=== PATIENT | male | born 1955 | race Caucasian/White ===

== ENCOUNTER 2019-07-22 10:54 | Inpatient (IN) | payer OTHER, SELFPAY ==
[2019-07-22] VITALS (13 sets, daily range): BP systolic 142–179; BP diastolic 74–95; PULSE 74–112; RESP 16–19; TEMP 36.6–37.8; O2SAT 94–100; BMI 32.7
--- NOTE | ~2019-07-22 | US_ITS ---
EXAMINATION: US right upper quadrant DATE: 07/23/2019 10:52 INDICATION: Choledocholithiasis. TECHNIQUE: Multiple grayscale and Doppler ultrasound images of the abdomen were obtained. COMPARISON: CT abdomen and pelvis 07/22/2019 FINDINGS: The visualized portions of the head, body, and tail of the pancreas are normal. The liver i s normal without focal lesion. No liver surface nodularity. There is normal flow in main portal vein. The gallbladder is distended and contains gallstones. Gallbladder wall thickening is noted. There wa s no sonographic Daniel sign. The common duct is normal and measures 3 mm. IMPRESSION: 1. Acute cholecystitis. Reviewed, dictated and finalized at location A. TANCE ABUSE SPECIALIST IMPRESSION: 1. Acute cholecystitis.
--- NOTE | ~2019-07-22 | XR_ITS ---
EXAMINATION: XR chest 1V portable EXAM DATE: 07/22/2019 11:34 INDICATION: Epigastric chest pain. Shortness of breath. TECHNIQUE: Portable AP frontal chest x-ray was obtained. There is no prior study for comparison. FINDINGS: The lungs are clear. There are no pleural effusions. Cardiac silhouette is prominent but magnified on this AP technique. There is no pneumothorax suspected. The bones and soft tissues are unremarkable. IMPRESSION: No acute cardiopulmonary findings. Reviewed, dictated and finalized at location A. GEMENT PSYCHOLOGIST
--- NOTE | ~2019-07-22 | NM_ITS ---
EXAMINATION: NM stress w perf spect multi EXAM DATE: 07/23/2019 09:38 INDICATION: Ischemic chest pain. TECHNIQUE: Rest images were obtained following intravenous administration of 10.5 mCi Tc99m tetrofosm in (Myoview). The patient performed an exercise activity. At peak exercise, 33.2 mCi Tc99m tetrofosmi n (Myoview) was administered intravenously, and stress images were obtained. Data was reconstructed i nto short axis and horizontal and vertical long axis SPECT images. Gated SPECT images were also obtai anders. There is no prior study for comparison. FINDINGS: There is no reversible or fixed perfusion abnormality to suggest ischemia or infarction. Th ere is normal left ventricular wall motion. End diastolic volume: 40 mL. End-systolic volume: 7 mL. Left ventricular ejection fraction: 83%. IMPRESSION: 1. Normal myocardial perfusion at rest and during stress. 2. Left ventricular ejection fraction measuring 83%. Reviewed, dictated and finalized at location A. PRODUCT
--- NOTE | ~2019-07-22 | XR_ITS ---
EXAMINATION: XR ERCP DATE: 07/23/2019 17:00 INDICATION: Choledocholithiasis. TECHNIQUE: 9 spot fluoroscopic images of the right upper quadrant were obtained during endoscopic ret rograde cholangiopancreatography (ERCP). Fluoroscopy exposure time was 442. COMPARISON: CT abdomen and pelvis 07/22/2019 FINDINGS: There is an endoscope with tip in the second portion of the duodenum. There is contrast opa cification of the biliary tree, which is normal in caliber. No choledocholithiasis. IMPRESSION: 1. No choledocholithiasis. Please refer to the ERCP procedure note for additional details. Reviewed, dictated and finalized at location A. TRIC CELL TENDER IMPRESSION: 1. No choledocholithiasis. Please refer to the ERCP procedure note for addition al details.
--- NOTE | ~2019-07-22 | CT_ITS ---
EXAMINATION: CT abdomen pelvis w con DATE: 07/22/2019 23:09 INDICATION: Elevated liver enzymes TECHNIQUE: Computed tomography (CT) of the abdomen and pelvis was performed with 100 cc Omnipaque 350 intravenous contrast. The dose-length product was 975.42 mGy-cm. Automated exposure control and iter ative reconstruction technique were employed. COMPARISON: No prior studies for comparison. FINDINGS: There are multiple gallstones. There are multiple small stones in the common bile duct and cystic duct. No significant biliary dilatation. Gallbladder wall is thickened with mild pericholecyst ic fatty infiltration. Lung bases unremarkable. Heart size normal. No significant pleural or pericardial effusion. Status po st partial right colectomy. The liver, spleen, pancreas, adrenal glands and kidneys are unremarkable. No bowel obstruction. Bladder wall is unremarkable. Nonobstructive bowel gas pattern. There is a bone island in the right ilium. No acute osseous abnormality. Mild lumbar spondylosis. IMPRESSION: 1. Cholelithiasis with multiple common duct stones and gallbladder wall thickening. Findings suspicio us for cholecystitis. Correlate clinically. Reviewed, dictated and finalized at location A. ATTENDANT IMPRESSION: 1. Cholelithiasis with multiple common duct stones and gallbladder wall thicken ing. Findings suspicious for cholecystitis. Correlate clinically.
--- NOTE | 2019-07-22 10:59 | ED.CHESTPAIN ---
HPI - Chest Pain General Chief Complaint: Chest Pain Stated Complaint: CP Time Seen by Provider: 07/22/19 10:56 Source: patient and RN notes reviewed Mode of arrival: EMS Limitations: no limitations History of Present Illness HPI narrative: A 63 y/o male presents to the ED via EMS with substernal CP beginning roughly 2 hour ago. He states that he was sitting at his desk while at work then his CP began. He reports associated N/V and SOB. He notes that he was given 3 ASA, 1 Nitro, and 4mg of Zofran in route, which help alleviate his symptoms. He denies any arm pain, neck pain, fevers, chills, diarrhea, or ABD pain. MD complaint: chest pain Onset (ago): hour(s) (2) Onset: during rest Pain location: substernal Pain radiation: none Relieving factors: nitroglycerin (1) and other (3 ASA and 4mg of Zofran) Associated symptoms: nausea, vomiting and dyspnea Treatment prior to arrival: aspirin (3), nitroglycerin (1) and other (4mg Zofran) Related Data Allergies Allergy/AdvReac Type Severity Reaction Status Date / Time No Known Allergies Allergy Verified 07/22/19 11:06 Review of Systems Review of Systems: All systems reviewed & are unremarkable except as noted in HPI and below Constitutional: Constitutional: Denies chills and Denies fever(s) Cardiovascular: Cardiovascular: Reports chest pain (substernal) Respiratory: Respiratory: Reports dyspnea Gastrointestinal: Gastrointestinal: Denies abdominal pain, Denies diarrhea, Reports nausea and Reports vomiting Musculoskeletal: Musculoskeletal: Denies neck pain and Denies other (arm pain) PMFSH Past Medical History Medical History (Updated 07/22/19 @ 13:58 by Son Kirk MD) CVA (cerebral vascular accident) DM (diabetes mellitus) H/O: HTN (hypertension) Lymphoma Medical history unknown Surgical History Surgical History (Updated 07/22/19 @ 11:18 by Celso Gaston) Surgical history unknown Social History Social History (Updated 07/22/19 @ 11:14 by Celso Gaston) Smoking status: Unknown if ever smoked Exam Narrative: Exam Narrative: GENERAL: Well-appearing, well-nourished, and in no acute distress. HEAD: Normocephalic, atraumatic. EYES: PERRLA and EOMI. ENT: Nares clear, no rhinorrhea or epistaxis. Mucous membranes moist. NECK: Supple. CHEST: Clear to auscultation. No respiratory distress. HEART: Regular rate and rhythm. No murmur heard. Normal peripheral pulses. ABDOMEN: Soft,Mild tenderness in the epigastric area , nondistended, normal active bowel sounds. EXTREMITIES: Normal range of motion. No edema. SKIN: Warm, dry, no rash. NEURO: No focal deficits. Alert and oriented x3. PSYCH: Normal mood and affect. Course Course Emergency Course: Inform patient about his lab work, x-ray findings. We will admit him for observation overnight for rule out SC Consultations Consultation #1: Discussed case with Sallie Lemus (CRYPTOLOGICAL TECHNICIAN to cardiology). Agrees to consult. Date: 07/22/19 Time: 13:32 Vital Signs Vital signs: Vital Signs Temperature 97.8 F 07/22/19 10:59 Pulse Rate 80 07/22/19 10:59 Respiratory Rate 18 07/22/19 10:59 Blood Pressure 156/79 H 07/22/19 10:59 Pulse Oximetry 100 07/22/19 10:59 Temperature 97.8 F 07/22/19 10:59 Pulse Rate 84 07/22/19 13:51 Respiratory Rate 19 07/22/19 13:51 Blood Pressure 144/87 H 07/22/19 13:51 Pulse Oximetry 98 07/22/19 13:51 MDM - Chest Pain Lab Data Result diagrams: 07/22/19 11:15 07/22/19 11:15 Labs: Lab Results 07/22/19 07/22/19 07/22/19 Range/Units 11:15 11:15 11:15 WBC 11.1 H (4.5-10.0) K/mm3 RBC 5.16 (4.6-6.20) M/mm3 Hgb 16.1 (14.0-18.0) g/dL Hct 48.4 (42.0-52.0) % MCV 93.8 (80-100) fl MCH 31.2 (26-34) pg MCHC 33.3 (32-36) g/dl RDW 12.7 (11.5-14.5) % Plt Count 186 (150-375) k/mm3 MPV 10.3 (7.4-10.4) fl Immature Gran % (Auto) 0.5 (0-0.5) % Neut % (Auto) 87.5 H (45.5-73.1) % Lymph % (Auto)
--- NOTE | 2019-07-22 11:20 | PC.NURSE ---
1120- Report given to MIRIAM Multani
[2019-07-22 11:27] LABS: Basophils Absolute Auto 0.1 K/mm3 (0.0-0.1); Basophils Percent Auto 0.8 % (0.2-1.2); Eosinophils Percent Auto 0.3 % (0-4.4); Hematocrit 48.4 % (42.0-52.0); Hemoglobin 16.1 g/dL (14.0-18.0); Immature Granulocyte Absolute 0.06 K/mm3 (0.00-0.031); Immature Granulocyte Percent A 0.5 % (0-0.5); Lymphocytes Absolute Auto 0.48 K/mm3 (0.9-3.2); Lymphocytes Percent Auto 4.3 % (18.3-44.2); Mean Corpuscular HGB Conc 33.3 g/dl (32-36); Mean Corpuscular Hemoglobin 31.2 pg (26-34); Mean Corpuscular Volume 93.8 fl (80-100); Mean Platelet Volume 10.3 fl (7.4-10.4); Monocytes Absolute Auto 0.7 K/mm3 (0.1-0.6); Monocytes Percent Auto 6.6 % (2.6-8.5); Neutrophils Absolute Auto 9.7 K/mm3 (1.3-6.7); Neutrophils Percent Auto 87.5 % (45.5-73.1); Platelet Count Result 186 k/mm3 (150-375); Red Blood Count 5.16 M/mm3 (4.6-6.20); Red Cell Distribution Width 12.7 % (11.5-14.5); White Blood Count 11.1 K/mm3 (4.5-10.0)
[2019-07-22 11:34] LABS: INR 0.9; Prothrombin Time 12.3 Seconds (11.1-14.7)
[2019-07-22 11:36] LABS: Alanine Aminotransferase 150 U/L (4-50); Albumin Level 4.4 g/dL (3.5-5.1); Alkaline Phosphatase 219 U/L (38-126); Aspartate Amino Transferase 347 U/L (17-59); Bilirubin,Total 1.7 mg/dL (0.2-1.3); Blood Urea Nitrogen 24 mg/dL (9-20); Calcium 9.2 mg/dL (8.4-10.2); Carbon Dioxide 29 mmol/L (22-30); Chloride 97 mmol/L (98-107); Estimated CRCL calculation 51 ml/min; Estimated Glomerular Filt Rate 47; Glucose 188 mg/dL (75-110); Potassium 3.6 mmol/L (3.4-5.0); Sodium 140 mmol/L (137-145)
[2019-07-22 11:48] LABS: Troponin I < 0.012 ng/mL (0.000-0.034)
--- NOTE | 2019-07-22 12:48 | ECG_ITS ---
Measurements Intervals [place] Rate: 79 P: 45 [place]: 182 QRS: 50 QRSD: 97 T: 33 QT: 374 QTc: 430 Interpretive Statements SINUS RHYTHM BORDERLINE ST-T WAVE ABNORMALITY- INFERIOR LEADS BORDERLINE ECG Electronically Signed On 07-22-2019 15:42:52 ORDNANCE HANDLER by Raghav Hart D.O.
[2019-07-22] MEDS: MORPHINE SULFATE 2 MG/ML INJ (12:51)
[2019-07-22 14:27] LABS: Troponin I < 0.012 ng/mL (0.000-0.034)
[2019-07-22] MEDS: ENOXAPARIN 100 MG/ML SYRINGE SUB-Q (16:20)
--- NOTE | 2019-07-22 16:21 | PM.CNCAR ---
Assessment and Plan Assessment and plan (1) Chest pain: Code(s): R07.9 - Chest pain, unspecified Status: Acute Assessment and Plan: Has atypical chest pain, but has significant risk factors for coronary disease, including diabetes mellitus hypertension and dyslipidemia, will proceed with follow-up enzymes and EKGs, if no recurrence of chest pain will proceed with stress test in the morning with exercise Myoview (2) Atypical chest pain: Code(s): R07.89 - Other chest pain Status: Acute (3) Dyslipidemia: Code(s): E78.5 - Hyperlipidemia, unspecified Status: Acute Assessment and Plan: Will check lipid profile and treat accordingly (4) H/O: HTN (hypertension): Code(s): Z86.79 - Personal history of other diseases of the circulatory system Status: Acute (5) DM (diabetes mellitus): Code(s): E11.9 - Type 2 diabetes mellitus without complications Status: Acute Additional Plan Thank you for allowing me to participate in this patient's care, I will be following up with you. Please do not hesitate to call me for any other inquiry History of Present Illness History of Present Illness Consult date/time: 07/22/19 16:21 Chief complaint is chest pain 63-year-old gentleman with history of diabetes mellitus, hypertension, and dyslipidemia, came to the hospital because of episode of chest pain. Retrosternal pain with radiation to the left side, nonexertional, without had mild shortness breath but no dizziness no lightheadedness no palpitation. He had similar chest pain few years ago at that time had workup which was unremarkable, he is not very active, but has mild shortness of breath mild disease exertion. No PNDs no orthopnea, no syncope. He has no known coronary artery disease according to [facility]. Reason For Visit: chest pain Review of Systems Constitutional: Constitutional: Reports fatigue Cardiovascular: Cardiovascular: Reports as per HPI Respiratory: Respiratory: Reports dyspnea and Reports dyspnea on exertion PMFSH Past Medical History Medical History CVA (cerebral vascular accident) DM (diabetes mellitus) H/O: HTN (hypertension) Lymphoma Medical history unknown Surgical History Surgical History Surgical history unknown Social History Social History Smoking status: Unknown if ever smoked Meds Home Medications and Allergies Allergies Allergy/AdvReac Type Severity Reaction Status Date / Time No Known Allergies Allergy Verified 07/22/19 11:06 Vital Signs Vital Signs - 24 hr 07/22/19 10:59 07/22/19 11:05 07/22/19 11:13 Temperature 36.6 C Pulse Rate 80 80 87 Respiratory Rate 18 16 Blood Pressure 156/79 H 154/74 H Pulse Oximetry 100 99 07/22/19 12:40 07/22/19 13:51 07/22/19 14:22 Temperature Pulse Rate 74 84 86 Respiratory Rate 16 19 16 Blood Pressure 142/84 H 144/87 H 154/82 H Pulse Oximetry 98 98 98 07/22/19 16:08 Temperature Pulse Rate 98 Respiratory Rate 16 Blood Pressure 154/95 H Pulse Oximetry 98 Exam Narrative: Exam Narrative: Awake alert oriented x3 not in acute distress Neck is supple no obvious JVD, no carotid bruit Chest: Good air entry bilaterally, lungs are clear to auscultation and percussion bilaterally Cardiovascular: Regular rate and rhythm, 2/6 systolic murmur noted left sternal border Abdomen: Soft nontender bowel sounds positive Extremities: No edema has good pulses distally bilaterally Results Labs and Meds Result diagrams: 07/22/19 11:15 07/22/19 11:15 Lab results: Cardiac Enzymes 07/22/19 07/22/19 Range/Units 11:15 13:53 AST 347 H (17-59) U/L Troponin I < 0.012 < 0.012 (0.000-0.034) ng/mL Coagulation 07/22/19 Range/Units 11:15 PT 12.3 (11.1-14.7) Seconds
--- NOTE | 2019-07-22 17:05 | ADMGEN ---
This patient, Young Márquez, was [facility] OVERFLOW OBSERVATION STATUS. Patient/family oriented to hospital policies and general routines including ID bracelet, bed and alarms, visiting hours, pain management, procedures, bathroom and other care routines, personal items, smoking policy, room service/diet, and visiting hours. Valuables list has been completed. Information on how to activate the Rapid Response Team has been discussed. Patient/Family are encouraged to report perceived risks to care and to ask questions if they do not understand what they are told or what they should do.
[2019-07-22 18:40] LABS: Cholesterol 132 mg/dL (0-200); HDL Direct 54 mg/dL; Triglycerides 33 mg/dL (<150)
[2019-07-22 18:51] LABS: LDL Cholesterol Direct 70 mg/dL
[2019-07-22 18:54] LABS: Troponin I < 0.012 ng/mL (0.000-0.034)
--- NOTE | 2019-07-22 21:19 | PM.IMHP ---
H&P: HPI History of Present Illness Chief complaint: chest pain Narrative: Young Márquez is a 63 year old male who came to the emergency room with some complaints of substernal chest pain he stated it went through to his back. He said he ate about 730 this morning and he was sitting at his desk when he started to have some discomfort at 8:15 a.m. after eating. The patient stated that he did vomit in route to the hospital. Patient was just sitting at his desk when this occurred. Patient was given 3 aspirin, 1 nitro and 4 mg of Zofran EN route. This alleviated his symptoms. Patient has no abdominal discomfort but however he was [facility] and now has a fever. He had no fever prior to coming to the emergency room. Dr. ledesma has seen the patient and suggested a chemical stress test tomorrow if his cardiac enzymes are negative. All 3 have been negative. He feels well enough to go home. He has an appointment with his oncologist at the [facility] and would like to be discharged to go see his oncologist. Liver enzymes are not all elevated. The patient still has his gallbladder. Date of service 07/22/2019 Review of Systems Review of Systems: Narrative: Patient has a history of lymphoma now in remission he did have chemotherapy about 2 years ago. Patient also had a colon tumor which a 3rd of his colon was were removed but it was found to be benign however the fell lymph nodes that diagnosed the lymphoma. The patient did have obstructive sleep apnea and used to use a CPAP machine but lost a lot a weight when he was being treated for the lymphoma no longer uses a CPAP machine. Patient stated he had a stroke about 10 years ago and had to have a stent placed in his left eye he also had problems with his speech and had her now to talk again. He only has problems speaking when he is very tired. Sometimes he does word searching All systems reviewed & are unremarkable except as noted in HPI and below Constitutional: Constitutional: Reports as per HPI and Reports no additional constitutional complaints Eyes: Eyes: Reports as per HPI and Reports no additional eye complaints ENT: Reports system reviewed and no additional complaints, except as documented and Reports Normal hearing present Cardiovascular: Cardiovascular: Reports no additional cardiovascular complaints Respiratory: Respiratory: Reports no additional respiratory complaints and Reports no additional respiratory complaints Gastrointestinal: Gastrointestinal: Reports as per HPI and Reports no additional gastrointestinal complaints Musculoskeletal: Musculoskeletal: Reports no additional musculoskeletal complaints Integumentary/Breasts: Skin/Breast: Reports system reviewed and no additional complaints, except as docu and Reports as per HPI Neurologic: Reports system reviewed and no additional complaints, except as documented, Reports as per HPI and Reports Normal hearing present Psychiatric: Psychiatric: Reports no additional psychiatric complaints and Reports as per HPI Endocrine: Endocrine: Reports no additional endocrine complaints Hematologic/Lymphatic: Hematologic/Lymphatic: Reports no additional hematologic/lymphatic complaints Allergic/Immunologic: Allergic/Immunologic: Reports no additional allergic/immunologic complaints PMFSH Past Medical History Medical History (Updated 07/22/19 @ 21:30 by Misa Lewis NP) CVA (cerebral vascular accident) At affected his speech and his left eye patient had a stent to his left eye. DM (diabetes mellitus) Type 2 History of benign colon tumor It was found to be been night however of 130 was colon was removed. 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 HTN (hypertension) with goal to be determined Lymphoma Chemotherapy approximately 2 years ago and he is now in remission. Medical history unknown Surgical History Surgical History (Updated 07/22/19 @ 21:30 by Misa Lewis NP) H/O colecto
[2019-07-22 22:04] LABS: Influenza Control Positive
[2019-07-23] VITALS (16 sets, daily range): BP systolic 102–150; BP diastolic 34–87; PULSE 60–103; RESP 12–22; TEMP 36.1–37.7; O2SAT 95–100
--- NOTE | 2019-07-23 | EST_ITS ---
Patient Info Name: Young Márquez Age: 63 years : 1955 Gender: Male Ht: 66 in Wt: 220 lbs BSA: 2.20 m2 Exam Date: 07/23/2019 8:24 AM Exam Location: [facility] Stress Patient Status: Inpatient Admit Date: 07/22/2019 Staff Ordering Physician: Chuck Dobson MD Attending Provider: Yu Foreman MD Exercise Technologist: Mojgan Rudolph RDCS Exercise Physician: Rangel De Jesus MD Exam Type: CA stress test treadmill w NM Study Info Indications R07.89 - Other chest pain A pharmacological stress test was performed. Summary 1. Indication for the stress test, chest pain. 2. Exercise capacity fair to good at 6-10 METS. 3. Normal stress test and stress ECG with near maximal exercise. Protocol: [facility] Stress ECG Details Stage: REST Duration (min): 0 min : 53 sec Speed (mph): 0.0 Grade (%): 0 HR (bpm): 86 SBP (mmHg): 130 DBP (mmHg): 66 METS: --- Stage: REST Duration (min): 2 min : 14 sec Speed (mph): 0.0 Grade (%): 0 HR (bpm): 92 SBP (mmHg): 130 DBP (mmHg): 66 METS: --- Stage: STAGE 1 Duration (min): 1 min : 0 sec Speed (mph): 1.7 Grade (%): 10 HR (bpm): 117 SBP (mmHg): 130 DBP (mmHg): 66 METS: --- Stage: STAGE 1 Duration (min): 2 min : 0 sec Speed (mph): 1.7 Grade (%): 10 HR (bpm): 121 SBP (mmHg): 130 DBP (mmHg): 66 METS: --- Stage: STAGE 1 Duration (min): 3 min : 0 sec Speed (mph): 1.7 Grade (%): 10 HR (bpm): 126 SBP (mmHg): 158 DBP (mmHg): 65 METS: --- Stage: STAGE 2 Duration (min): 1 min : 0 sec Speed (mph): 2.5 Grade (%): 12 HR (bpm): 133 SBP (mmHg): 158 DBP (mmHg): 65 METS: --- Stage: STAGE 2 Duration (min): 2 min : 0 sec Speed (mph): 2.5 Grade (%): 12 HR (bpm): 137 SBP (mmHg): 170 DBP (mmHg): 68 METS: --- Stage: STAGE 2 Duration (min): 3 min : 0 sec Speed (mph): 2.5 Grade (%): 12 HR (bpm): 144 SBP (mmHg): 170 DBP (mmHg): 68 METS: --- Stage: STAGE 3 Duration (min): 0 min : 46 sec Speed (mph): 3.4 Grade (%): 14 HR (bpm): 156 SBP (mmHg): 212 DBP (mmHg): 93 METS: --- Stage: RECOVERY Duration (min): 0 min : 13 sec Speed (mph): 1.5 Grade (%): 0 HR (bpm): 156 SBP (mmHg): 212 DBP (mmHg): 93 METS: --- Stage: RECOVERY Duration (min): 1 min : 14 sec Speed (mph): 0.0 Grade (%): 0 HR (bpm): 136 SBP (mmHg): 212 DBP (mmHg): 93 METS: --- Stage: RECOVERY Duration (min): 2 min : 13 sec Speed (mph): 0.0 Grade (%): 0 HR (bpm): 121 SBP (mmHg): 167 DBP (mmHg): 77 METS: --- Stage: RECOVERY Duration (min): 3 min : 13 sec Speed (mph): 0.0 Grade (%): 0 HR (bpm): 115 SBP (mmHg): 130 DBP (mmHg): 64 METS: --- Stage: RECOVERY Duration (min)
[2019-07-23 07:26] LABS: Glucose Point of Care 98 (65-105)
[2019-07-23] MEDS: ATORVASTATIN 20 MG TABLET PO (07:29)
[2019-07-23] MEDS: ASPIRIN 81 MG ENTERIC TABLET PO (07:30)
--- NOTE | 2019-07-23 08:43 | PM.IMPN ---
Progress Note: A&P Assessment and Plan (1) Choledocholithiasis with acute cholecystitis with obstruction: Onset Date: ~07/21/19 Code(s): K80.43 - Calculus of bile duct with acute cholecystitis with obstruction Status: Acute Assessment and Plan: CT scan of the abdomen showing choledocholithiasis and gallstones. Suspect this is the etiology of the elevated liver enzymes. Most likely this is the etiology of his chest pain as well. Continue NPO status. GI has been consulted possible for ERCP later today. General surgery also has been consulted for eventual cholecystectomy. Repeat labs are pending. Upper quadrant ultrasound. Patient does have elevated white count on admission with low-grade fever. We will start Unasyn to cover for ascending cholangitis. Hold Lovenox. (2) Atypical chest pain: Code(s): R07.89 - Other chest pain Status: Acute Assessment and Plan: Patient with atypical chest pain. Cardiac enzymes are all negative. Patient has completed Lexiscan stress test without difficulty. No chest pain during the stress test. Results are pending. Continue aspirin. Hold Lipitor. (3) Acute renal failure: Code(s): N17.9 - Acute kidney failure, unspecified Status: Acute Assessment and Plan: Creatinine 1.45 on admission. No prior history of renal insufficiency. No prior labs available for review. Lisinopril has been held. Will start normal saline. Repeat labs pending. (4) Elevated liver enzymes: Onset Date: ~07/21/19 Code(s): R74.8 - Abnormal levels of other serum enzymes Status: Acute Assessment and Plan: Elevated liver enzymes most likely related to above. (5) HTN (hypertension) with goal to be determined: Code(s): I10 - Essential (primary) hypertension Status: Chronic Assessment and Plan: Blood pressure reviewed on 07/23/2019. Blood pressure elevated at times but better this morning. Lisinopril on hold due to his elevated creatinine. Continue to monitor for now. (6) DM (diabetes mellitus): Code(s): E11.9 - Type 2 diabetes mellitus without complications Status: Chronic Assessment and Plan: Glucose reviewed on 07/23/2019. Glucose well controlled. Continue sliding scale insulin Hold metformin and Jardiance since patient NPO. (7) Dyslipidemia: Code(s): E78.5 - Hyperlipidemia, unspecified Status: Acute Assessment and Plan: LFTs elevated. LDL 70. HDL 54. Hold Lipitor given his elevated liver enzymes. Subjective Date/time seen: 07/23/19 08:43 Interval history: 63yo male here for CP at rest and found to have elevated LFTs and choledocholithiasis. Patient is back from his stress test. He denies having any chest pain during the stress test. No abdominal pain. Patient had [employer] sandwich about 45 minutes prior to onset of chest pain yesterday. Chest pain was lower substernal in location that he describes as ?pressure?. Pain radiated to his back. He had nausea and vomiting yesterday but not today. Feels well today. Exam Narrative: Exam Narrative: Tm 100.0 Gen - NARD Chest - CTA bilat, nml RR CV - RRR S1/S2; Tele showing no significant dysrhythmia Abd -soft. Nontender nondistended. Positive bowel Ext -no pedal edema. Psych -normal mood and affect. Skin -warm and dry. Objective Data Vital Signs Vital Signs: Vital Signs - 24 hr 07/22/19 10:59 07/22/19 11:05 07/22/19 11:13 Temperature 97.8 F Pulse Rate 80 80 87 Respiratory Rate 18 16 Blood Pressure 156/79 H 154/74 H Pulse Oximetry 100 99 07/22/19 12:40 07/22/19 13:51 07/22/19 14:22 Temperature Pulse Rate 74 84 86 Respiratory Rate 16 19 16 Blood Pressure 142/84 H 144/87 H 154/82 H Pulse Oximetry 98 98 98 07/22/19 16:08 07/22/19 16:45 07/22/19 17:15 Temperature Pulse Rate 98 88 100 Respiratory Rate 16 16 Blood Pressure 154/95 H 153/82 H Pulse Oximetry 98
[2019-07-23] MEDS: AMPICILLIN SULB 3 GM/NS 100 ML 3 GM/100 ML VIAL IVPB ×3 (09:55→23:29)
[2019-07-23 10:02] LABS: Basophils Absolute Auto 0.1 K/mm3 (0.0-0.1); Basophils Percent Auto 0.9 % (0.2-1.2); Eosinophils Absolute Auto 0.1 K/mm3 (0-0.3); Eosinophils Percent Auto 1.3 % (0-4.4); Hematocrit 44.1 % (42.0-52.0); Hemoglobin 14.7 g/dL (14.0-18.0); Immature Granulocyte Absolute 0.04 K/mm3 (0.00-0.031); Immature Granulocyte Percent A 0.5 % (0-0.5); Lymphocytes Absolute Auto 0.83 K/mm3 (0.9-3.2); Lymphocytes Percent Auto 11.1 % (18.3-44.2); Mean Corpuscular HGB Conc 33.3 g/dl (32-36); Mean Corpuscular Hemoglobin 31.1 pg (26-34); Mean Corpuscular Volume 93.4 fl (80-100); Mean Platelet Volume 10.3 fl (7.4-10.4); Monocytes Absolute Auto 0.9 K/mm3 (0.1-0.6); Monocytes Percent Auto 12.4 % (2.6-8.5); Neutrophils Absolute Auto 5.5 K/mm3 (1.3-6.7); Neutrophils Percent Auto 73.8 % (45.5-73.1); Platelet Count Result 198 k/mm3 (150-375); Red Blood Count 4.72 M/mm3 (4.6-6.20); Red Cell Distribution Width 13.1 % (11.5-14.5); White Blood Count 7.5 K/mm3 (4.5-10.0)
[2019-07-23 10:15] LABS: Lipase 41 U/L (23-300)
[2019-07-23 10:17] LABS: Alanine Aminotransferase 119 U/L (4-50); Albumin Level 3.7 g/dL (3.5-5.1); Alkaline Phosphatase 167 U/L (38-126); Aspartate Amino Transferase 68 U/L (17-59); Blood Urea Nitrogen 23 mg/dL (9-20); Calcium 8.7 mg/dL (8.4-10.2); Carbon Dioxide 29 mmol/L (22-30); Chloride 97 mmol/L (98-107); Estimated CRCL calculation 46 ml/min; Estimated Glomerular Filt Rate 44; Glucose 188 mg/dL (75-110); Lipase 41 U/L (23-300); Magnesium 2.1 mg/dL (1.6-2.3); Potassium 3.5 mmol/L (3.4-5.0); Sodium 139 mmol/L (137-145)
[2019-07-23 13:01] LABS: Glucose Point of Care 116 (65-105)
--- NOTE | 2019-07-23 13:01 | PM.PNCARD ---
Progress Note: A&P Assessment and Plan (1) Chest pain: Code(s): R07.9 - Chest pain, unspecified Status: Acute Assessment and Plan: Has atypical chest pain, but has significant risk factors for coronary disease, including diabetes mellitus, hypertension and dyslipidemia. No recurrence of chest pain. Serial troponin I negative for injury. He had exercise nuclear stress test 07/23/2019: 1. Normal myocardial perfusion at rest and during stress. 2. Left ventricular ejection fraction measuring 83%. (2) Atypical chest pain: Code(s): R07.89 - Other chest pain Status: Acute Assessment and Plan: Work-up per GI pending for possible cholecystitis. (3) Dyslipidemia: Code(s): E78.5 - Hyperlipidemia, unspecified Status: Acute Assessment and Plan: Will check lipid profile and treat accordingly. LDL 70 this admission. (4) H/O: HTN (hypertension): Code(s): Z86.79 - Personal history of other diseases of the circulatory system Status: Inactive Assessment and Plan: Blood pressure well controlled. Continue to monitor on current regimen. (5) DM (diabetes mellitus): Code(s): E11.9 - Type 2 diabetes mellitus without complications Status: Chronic Assessment and Plan: Management as per primary service. Subjective Date/time seen: 07/23/19 13:01 Interval history: 63yo male here for CP at rest and found to have elevated LFTs and choledocholithiasis. Patient is back from his stress test. He denies having any chest pain during the stress test. No abdominal pain. He had nausea and vomiting yesterday but not today. Feels well today. He denies dyspnea or dizziness. Patient was seen and examined, chart reviewed, and case discussed with nurse. Exam Narrative: Exam Narrative: Awake alert oriented x3 not in acute distress Neck is supple no obvious JVD, no carotid bruit Chest: Good air entry bilaterally, lungs are clear to auscultation and percussion bilaterally Cardiovascular: Regular rate and rhythm, 2/6 systolic murmur noted left sternal border Abdomen: Soft nontender bowel sounds positive Extremities: No edema has good pulses distally bilaterally Objective Data Vital Signs Vital Signs: Vital Signs - 24 hr 07/22/19 13:51 07/22/19 14:22 07/22/19 16:08 Temperature Pulse Rate 84 86 98 Respiratory Rate 19 16 16 Blood Pressure 144/87 H 154/82 H 154/95 H Pulse Oximetry 98 98 98 07/22/19 16:45 07/22/19 17:15 07/22/19 17:30 Temperature 37.5 C Pulse Rate 88 100 101 H Respiratory Rate 16 16 Blood Pressure 153/82 H 156/90 H Pulse Oximetry 98 94 07/22/19 18:00 07/22/19 20:00 07/22/19 22:00 Temperature 37.8 C H Pulse Rate 104 H 104 H 102 H Respiratory Rate 16 Blood Pressure 179/83 H Pulse Oximetry 96 07/23/19 00:00 07/23/19 04:00 07/23/19 06:00 Temperature 37.7 C H 36.9 C Pulse Rate 92 93 100 Respiratory Rate 22 H 15 Blood Pressure 148/75 H 127/80 Pulse Oximetry 96 96 07/23/19 08:00 07/23/19 10:00 Temperature Pulse Rate 86 65 Respiratory Rate 12 Blood Pressure Pulse Oximetry 95 Intake/Output Intake/Output: Intake & Output 07/20/19 07/21/19 07/22/19 07/23/19 23:59 23:59 23:59 23:59 Intake Total 240 0 Balance 240 0 Meds/Results Medications: Active Medications Generic Name Dose Route Start Last Admin Trade Name Freq PRN Reason Stop Dose Admin Aspirin 81 mg 07/23/19 09:00 07/23/19 07:30 Aspirin Ec PO 81 mg DAILY VIVIEN Administration Atorvastatin Calcium 20 mg 07/23/19 09:00 07/23/19 07:29 Lipitor PO 20 mg DAILY VIVIEN Administration Dextrose 12.5 gm 07/22/19 21:18 Dextrose 50% Syringe IV PUSH PRN PRN Hypoglycemia Protocol Glucagon 1 mg 07/22/19 21:18 Glucagon For Inj IM PRN PRN Hypoglycemia Protocol Glucose 15 gm 07/22/19 21:18 Glutose 15 PO PRN PRN Hypoglycemia Protocol Dext
--- NOTE | 2019-07-23 13:32 | WPDANESEPP ---
Anes - Eval Pre Procedure Procedure: ERCP Date/Time: 07/23/19 13:32 Surgeon: mary Pre Op Diagnosis: chest pain Patient Data Age: 63 Gender: M Height: 1.68 m Weight: 92 kg Last Vital Signs Temp 36.9 C 07/23/19 04:00 Pulse 65 07/23/19 10:00 Resp 12 07/23/19 08:00 BP 127/80 07/23/19 04:00 Pulse Ox 95 07/23/19 08:00 Allergies Allergy/AdvReac Type Severity Reaction Status Date / Time No Known Allergies Allergy Verified 07/22/19 19:15 Home Medications Medication Instructions Recorded Confirmed Type aspirin 81 mg PO DAILY 07/22/19 07/22/19 History atorvastatin 20 mg PO DAILY 07/22/19 07/22/19 History dulaglutide [Trulicity] 1.5 mg SUBCUT WEEKLY 07/22/19 07/22/19 History empagliflozin [Jardiance] 25 mg PO QAM 07/22/19 07/22/19 History insulin glargine [Basaglar KwikPen 42 unit SUBCUT DAILY 07/22/19 07/22/19 History U-100 Insulin] lisinopril 10 mg PO DAILY 07/22/19 07/22/19 History lisinopril-hydrochlorothiazide 1 tablet PO DAILY 07/22/19 07/22/19 History metformin 1,000 mg PO BID 07/22/19 07/22/19 History sildenafil 100 mg PO DAILY PRN 07/22/19 07/22/19 History Laboratory Tests 07/22/19 07/22/19 07/22/19 13:53 18:13 18:13 WBC RBC Hgb Hct MCV MCH MCHC RDW Plt Count MPV Immature Gran % (Auto) Neut % (Auto) Lymph % (Auto) Atkinson % (Auto) Eos % (Auto) Baso % (Auto) Lymph # (Auto) Atkinson # (Auto) Eos # (Auto) Baso # (Auto) Abs Immat Gran (auto) Absolute Neuts (auto) Absolute Nucleated RBC Nucleated RBC % Sodium Potassium Chloride Carbon Dioxide BUN Creatinine Estim Creat Clear Calc Estimated GFR Glucose POC Capillary Glucose Calcium Magnesium Total Bilirubin AST ALT Alkaline Phosphatase Troponin I < 0.012 ng/mL ng/mL < 0.012 ng/mL ng/mL (0.000-0.034) (0.000-0.034) Total Protein Albumin Triglycerides 33 mg/dL mg/dL (<150) Cholesterol 132 mg/dL mg/dL (0-200) LDL Cholesterol Direct 70 mg/dL mg/dL HDL Direct 54 mg/dL mg/dL Lipase TSH (Reflex) Influenza Types A,B Ag 07/22/19 07/23/19 07/23/19 21:46 07:24 09:44 WBC RBC Hgb Hct MCV MCH MCHC RDW Plt Count MPV Immature Gran % (Auto) Neut % (Auto) Lymph % (Auto) Atkinson % (Auto) Eos % (Auto) Baso % (Auto) Lymph # (Auto) Atkinson # (Auto) Eos # (Auto) Baso # (Auto) Abs Immat Gran (auto) Absolute Neuts (auto) Absolute Nucleated RBC Nucleated RBC % Sodium 139 mmol/L mmol/L (137-145) Potassium 3.5 mmol/L mmol/L (3.4-5.0) Chloride 97 mmol/L L mmol/L (98-107) Carbon Dioxide 29 mmol/L mmol/L (22-30) BUN 23 mg/dL H mg/dL (9-20) Creatinine 1.60 mg/dL H mg/dL (0.7-1.3) Estim Creat Clear Calc 46 ml/min ml/min Estimated GFR 44 L (59 - ) Glucose 188 mg/dL H mg/dL (75-110) POC Capillary Glucose 98 mg/dl mg/dl (65-105) Calcium 8.7 mg/dL mg/dL (8.4-10.2) Magnesium 2.1 mg/dL mg/dL (1.6-2.3) Total Bilirubin 1.0 mg/dL mg/dL (0.2-1.3) AST 68 U/L H U/L (17-59) ALT 119 U/L H U/L (4-50) Alkaline Phos
[2019-07-23] MEDS: LACTATED RINGERS 1,000 ML 150 ML IV CONT ×2 (14:39→16:15)
[2019-07-23 14:42] LABS: Glucose Point of Care 86 (65-105)
--- NOTE | 2019-07-23 14:57 | WPDANESEPPF ---
Anes - Initial Pre Proc Eval Procedure: Operation Date: 07/23/19 15:30 Proposed Procedures p Endoscopic Retro Cholangiopancreatogram - Shelton Guzman MD Date/Time: 07/23/19 14:57 Surgeon: Yu Foreman MD Pre Op Diagnosis: chest pain Patient Data Age: 63 Gender: M Height: 5 ft 6 in Weight: 92 kg Last Vital Signs Temp 97.4 F L 07/23/19 14:38 Pulse 89 07/23/19 14:38 Resp 16 07/23/19 14:38 BP 116/87 07/23/19 14:38 Pulse Ox 98 07/23/19 14:38 Allergies Allergy/AdvReac Type Severity Reaction Status Date / Time No Known Allergies Allergy Verified 07/22/19 19:15 Home Medications Medication Instructions Recorded Confirmed Type aspirin 81 mg PO DAILY 07/22/19 07/22/19 History atorvastatin 20 mg PO DAILY 07/22/19 07/22/19 History dulaglutide [Trulicity] 1.5 mg SUBCUT WEEKLY 07/22/19 07/22/19 History empagliflozin [Jardiance] 25 mg PO QAM 07/22/19 07/22/19 History insulin glargine [Basaglar KwikPen 42 unit SUBCUT DAILY 07/22/19 07/22/19 History U-100 Insulin] lisinopril 10 mg PO DAILY 07/22/19 07/22/19 History lisinopril-hydrochlorothiazide 1 tablet PO DAILY 07/22/19 07/22/19 History metformin 1,000 mg PO BID 07/22/19 07/22/19 History sildenafil 100 mg PO DAILY PRN 07/22/19 07/22/19 History Laboratory Tests 07/22/19 07/22/19 07/22/19 18:13 18:13 21:46 WBC RBC Hgb Hct MCV MCH MCHC RDW Plt Count MPV Immature Gran % (Auto) Neut % (Auto) Lymph % (Auto) Mcleod % (Auto) Eos % (Auto) Baso % (Auto) Lymph # (Auto) Mcleod # (Auto) Eos # (Auto) Baso # (Auto) Abs Immat Gran (auto) Absolute Neuts (auto) Absolute Nucleated RBC Nucleated RBC % Sodium Potassium Chloride Carbon Dioxide BUN Creatinine Estim Creat Clear Calc Estimated GFR Glucose POC Capillary Glucose Calcium Magnesium Total Bilirubin AST ALT Alkaline Phosphatase Troponin I < 0.012 ng/mL ng/mL (0.000-0.034) Total Protein Albumin Triglycerides 33 mg/dL mg/dL (<150) Cholesterol 132 mg/dL mg/dL (0-200) LDL Cholesterol Direct 70 mg/dL mg/dL HDL Direct 54 mg/dL mg/dL Lipase TSH (Reflex) Influenza Types A,B Ag Negative (Negative) 07/23/19 07/23/19 07/23/19 07:24 09:44 09:44 WBC RBC Hgb Hct MCV MCH MCHC RDW Plt Count MPV Immature Gran % (Auto) Neut % (Auto) Lymph % (Auto) [place]cleod % (Auto) Eos % (Auto) Baso % (Auto) Lymph # (Auto) [place]cleod # (Auto) Eos # (Auto) Baso # (Auto) Abs Immat Gran (auto) Absolute Neuts (auto) Absolute Nucleated RBC Nucleated RBC % Sodium 139 mmol/L mmol/L (137-145) Potassium 3.5 mmol/L mmol/L (3.4-5.0) Chloride 97 mmol/L L mmol/L (98-107) Carbon Dioxide 29 mmol/L mmol/L (22-30) BUN 23 mg/dL H mg/dL (9-20) Creatinine 1.60 mg/dL H mg/dL (0.7-1.3) Estim Creat Clear Calc 46 ml/min ml/min Estimated GFR 44 L (59 - ) Glucose 188 mg/dL H mg/dL (75-110) POC Capillary Glucose 98 mg/dl mg/dl (65-105) Calcium 8.7 mg/dL mg/dL (8.4-10.2) Magnesium 2.1 mg/dL mg/dL (1.6-2.3) Total B
[2019-07-23] MEDS: INDOMETHACIN 50 MG SUPP.RECT 100 MG RECTAL (15:53)
--- NOTE | 2019-07-23 17:03 | WPDGICN ---
Assessment and Plan Assessment and plan (1) Choledocholithiasis with acute cholecystitis with obstruction: Code(s): K80.43 - Calculus of bile duct with acute cholecystitis with obstruction Status: Acute Assessment and Plan: will proceed with ERCP to assess if stones (normal bile duct size by CT scan), then will need also surgical evaluation. Continue with medical support, iv abx, etc. (2) Elevated liver enzymes: Code(s): R74.8 - Abnormal levels of other serum enzymes Status: Acute Assessment and Plan: cholestatic pattern, monitor lft's (3) HTN (hypertension) with goal to be determined: Code(s): I10 - Essential (primary) hypertension Status: Chronic (4) DM (diabetes mellitus): Qualifiers: Diabetes mellitus type: type 2 Diabetes mellitus assisted insulin use: with salvage determiner use Diabetes mellitus complication status: with other specified complication Qualified Code(s): E11.69 - Type 2 diabetes mellitus with other specified complication; Z79.4 - detention (current) use of insulin Code(s): E11.9 - Type 2 diabetes mellitus without complications Status: Chronic (5) Atypical chest pain: Code(s): R07.89 - Other chest pain Status: Acute Assessment and Plan: he already had unremarkable cardiac work up, cardiology on board. GI Consult Note Consult date/time: 07/23/19 17:03 reason for consult: elevated liver enzymes, choledocholithiasis. HPI: Young Márquez is a 63 year old male here after developed new onsent of substernal chest pain, he thought that could be heart attact, also had one episode of nausea and vomiting. Cardiac work up was normal, he even had stress test that was negative. Blood work with elevated lft's, bili 1.7, also mild leukocytosis, had temperature [address] a/p showed cholelithiasis with multiple common duct stones and gallbladder wall thickening. Findings suspicious for cholecystitis. He never had GB problem before, no previous hepatitis or liver issues, no etoh abuse. RUQ ultrasound c/w acute cholecystitis, normal bile duct size. He is NPO now and awaiting for ERCP, also got IV unasyn. Now he is feeling better, no more pain or vomiting. 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 Review of Systems Constitutional: Constitutional: Reports fever(s) Eyes: Eyes: Denies blurry vision ENT: Reports Normal hearing present, Denies headache(s) and Denies neck pain Cardiovascular: Cardiovascular: Reports chest pain and Denies dyspnea Respiratory: Respiratory: Denies dyspnea Gastrointestinal: Gastrointestinal: Reports no additional gastrointestinal complaints Genitourinary: Genitourinary: Denies dysuria Musculoskeletal: Musculoskeletal: Denies neck pain Integumentary/Breasts: Skin/Breast: Denies dry skin Neurologic: Reports Normal hearing present, Denies headache(s) and Denies weakness Psychiatric: Psychiatric: Denies anxiety Endocrine: Endocrine: Denies change in body appearance Hematologic/Lymphatic: Hematologic/Lymphatic: Denies easy bleeding Allergic/Immunologic: Allergic/Immunologic: Denies urticaria PMFSH Past Medical History Medical History (Updated 07/23/19 @ 17:08 by Shelton Guzman MD) CVA (cerebral vascular accident) At affected his speech and his left eye patient had a stent to his left eye. DM (diabetes mellitus) Type 2 History of benign colon tumor It was found to be been night however of 130 was colon was removed. 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 HTN (hypertension) with goal to be determined Lymphoma Chemotherapy approximately 2 years ago and he is now in remission. Medical history unknown Surgical History Surgical History (Updated 07/22/19 @ 21:30 by Misa Lewis NP) H/O colectomy H/O eye surgery Stent to left eye Family History Family History (Updated 07/22/19 @
[2019-07-23 17:28] LABS: Glucose Point of Care 92 (65-105)
--- NOTE | 2019-07-23 18:13 | PC.NURSE ---
Returned from GI Lab. Report received from Lina. Patient oriented to room and settled into the bed.
[2019-07-23 18:56] LABS: Glucose Point of Care 120 (65-105)
[2019-07-24 01:51] LABS: Glucose Point of Care 130 (65-105)
[2019-07-24] MEDS: AMPICILLIN SULB 3 GM/NS 100 ML 3 GM/100 ML VIAL IVPB ×4 (03:30→20:37)
[2019-07-24 05:54] LABS: Alanine Aminotransferase 293 U/L (4-50); Albumin Level 3.4 g/dL (3.5-5.1); Alkaline Phosphatase 211 U/L (38-126); Aspartate Amino Transferase 451 U/L (17-59); Bilirubin,Total 1.7 mg/dL (0.2-1.3); Blood Urea Nitrogen 29 mg/dL (9-20); Calcium 8.3 mg/dL (8.4-10.2); Carbon Dioxide 26 mmol/L (22-30); Chloride 98 mmol/L (98-107); Estimated CRCL calculation 43 ml/min; Estimated Glomerular Filt Rate 41; Glucose 168 mg/dL (75-110); Lipase 1615 U/L (23-300); Potassium 3.5 mmol/L (3.4-5.0); Sodium 138 mmol/L (137-145)
[2019-07-24 06:00] VITALS: BP 116/51; PULSE 96; RESP 18; TEMP 37; O2SAT 96
[2019-07-24 06:52] LABS: Hematocrit 41.4 % (42.0-52.0); Hemoglobin 14.1 g/dL (14.0-18.0); Mean Corpuscular HGB Conc 34.1 g/dl (32-36); Mean Corpuscular Hemoglobin 31.5 pg (26-34); Mean Corpuscular Volume 92.6 fl (80-100); Mean Platelet Volume 10.6 fl (7.4-10.4); Platelet Count Result 182 k/mm3 (150-375); Red Blood Count 4.47 M/mm3 (4.6-6.20); Red Cell Distribution Width 12.8 % (11.5-14.5); White Blood Count 9.1 K/mm3 (4.5-10.0)
[2019-07-24 09:25] LABS: Glucose Point of Care 131 (65-105)
[2019-07-24 10:00] VITALS: BP 143/67; PULSE 67; RESP 18; TEMP 36.8; O2SAT 97
[2019-07-24] MEDS: ATORVASTATIN 20 MG TABLET PO (10:01)
--- NOTE | 2019-07-24 12:17 | PM.CNGS ---
Assessment and Plan Assessment and plan (1) Choledocholithiasis with acute cholecystitis with obstruction: Onset Date: ~07/21/19 Code(s): K80.43 - Calculus of bile duct with acute cholecystitis with obstruction Status: Acute Assessment and Plan: I have had a thorough discussion with the patient and his regarding chronic cholecystitis and cholelithiasis and acute cholecystitis. His white count is down today. He is on antibiotics and this may have helped. Patient's lipase is elevated today after his ERCP so he may have some element of pancreatitis either secondary to the previous stones in the common duct that have passed or secondary to some swelling at the ampulla after ERCP. For now would recommend repeating his lipase tomorrow morning to see if this gets better or worse. If it is improved by half he could be a candidate for laparoscopic cholecystectomy during this admission or we could have him go home on a low-fat diet and return for an outpatient laparoscopic cholecystectomy next week. They know that these of the possibilities. Will repeat his labs tomorrow morning and my partner Dr. Tejeda will check on him and help make the decision as to the timing of surgery and when it will be best. (2) Elevated liver enzymes: Onset Date: ~07/21/19 Code(s): R74.8 - Abnormal levels of other serum enzymes Status: Acute Assessment and Plan: LFTs still up today. May be secondary to some swelling at the ampulla of Vater. Yesterday's ERCP showed no remaining stones in the duct. (3) HTN (hypertension) with goal to be determined: Code(s): I10 - Essential (primary) hypertension Status: Chronic Assessment and Plan: Continue current medications and monitor (4) DM (diabetes mellitus): Qualifiers: Diabetes mellitus complication status: with other specified complication Diabetes mellitus computer terminal operator insulin use: with computer terminal operator use Diabetes mellitus type: type 2 Qualified Code(s): E11.69 - Type 2 diabetes mellitus with other specified complication; Z79.4 - nursing home (current) use of insulin Code(s): E11.9 - Type 2 diabetes mellitus without complications Status: Chronic Assessment and Plan: Encouraged close glucose control (5) Pancreatitis due to biliary obstruction: Code(s): K85.90 - Acute pancreatitis without necrosis or infection, unspecified; K83.1 - Obstruction of bile duct Status: Acute Assessment and Plan: Remain on clear liquids and repeat lipase in a.m. History of Present Illness Consult details Consult date: 07/24/19 Reason for consult: gallstones Narrative: Cholelithiasis with elevated liver enzymes, choledocholithiasis. Young Márquez is a 63 year old white male admitted here after he developed new onsent of substernal chest pain Tues parminder, he thought that it could be a heart attack so he came to the ED. He also had one episode of nausea and vomiting With the onset of the pain. He was [facility] from [facility] ED and had a cardiac work up that was normal. He even had a cardiac stress test that was negative. Blood work showed an elevated Lft's, bili 1.7, also mild leukocytosis. He had temperature [address] a/p showed cholelithiasis with multiple common duct stones and gallbladder wall thickening. Findings suspicious for cholecystitis. As far as he knew he had never had GB problems before, no previous hepatitis or liver issues, no Etoh abuse. A RUQ ultrasound is c/w acute cholecystitis, normal bile duct size. Dr. Carter was able to get him on for ERCP yesterday. Procedure note and results noted. Now he is feeling better, no more pain or vomiting. Today is repeat lab study show his white count to be down some but liver functions depths tests are still elevated along with the lipase up to 1600. He is not subjectively complain of any abdominal pain right now but has been only taking ice chips. About
[2019-07-24 13:51] LABS: Glucose Point of Care 199 (65-105)
[2019-07-24 14:00] VITALS: BP 128/73; PULSE 91; RESP 14; TEMP 37.3; O2SAT 97
--- NOTE | 2019-07-24 14:34 | PM.IMPN ---
Progress Note: A&P Assessment and Plan (1) Choledocholithiasis with acute cholecystitis with obstruction: Onset Date: ~07/21/19 Code(s): K80.43 - Calculus of bile duct with acute cholecystitis with obstruction Status: Acute Assessment and Plan: CT scan of the abdomen showing choledocholithiasis and gallstones. Suspect this is the etiology of the elevated liver enzymes. Most likely this is the etiology of his chest pain as well. GI was consulted and patient underwent ERCP on 07/23/2019. General surgery also has been consulted for eventual cholecystectomy. Biliary duct was swept multiple times but but only sludge removed. Liver enzymes improved yesterday but worse today post procedure. Lipase also has climbed to 1600 to suggest an ERCP induced pancreatitis. This is most likely the cause of his abdominal pain at this time. Patient remains on clear liquid diet. Patient's white count normal now. Continue Unasyn for now. May want to continue abx until planned cholecystectomy. Continue clear liquid diet. Repeat labs in the morning. (2) Atypical chest pain: Code(s): R07.89 - Other chest pain Status: Acute Assessment and Plan: Patient with atypical chest pain. Cardiac enzymes are all negative. Lexiscan stress test was negative. Chest pain possibly related to above. Aspirin has been stopped. Lipitor on hold. (3) Acute renal failure: Code(s): N17.9 - Acute kidney failure, unspecified Status: Acute Assessment and Plan: Creatinine 1.5 on admission. No prior history of renal insufficiency. No prior labs available for review. Lisinopril has been held. Creatinine trending upward to 1.6 today. Currently on liquid diet. Low-dose normal saline to be started. (4) Elevated liver enzymes: Onset Date: ~07/21/19 Code(s): R74.8 - Abnormal levels of other serum enzymes Status: Acute Assessment and Plan: Elevated liver enzymes most likely related to above. (5) HTN (hypertension) with goal to be determined: Code(s): I10 - Essential (primary) hypertension Status: Chronic Assessment and Plan: Blood pressure reviewed on 07/24/2019. Blood pressure elevated at times but overall stable. Lisinopril on hold due to his elevated creatinine. Continue to monitor for now. Will add low dose Amlodipine. 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 Glucose well controlled except 199 around lunch time. Continue sliding scale insulin. Continue to hold metformin and Jardiance since patient on a clear liquid diet. Check A1c. (7) Dyslipidemia: Code(s): E78.5 - Hyperlipidemia, unspecified Status: Acute Assessment and Plan: LFTs elevated. LDL 70. HDL 54. Hold Lipitor given his elevated liver enzymes. Subjective Date/time seen: 07/24/19 14:34 Interval history: 63yo male here for CP at rest and found to have elevated LFTs and choledocholithiasis. Patient earlier today was having ?constant? right upper quadrant pain. This has subsided. No chest pain. No nausea or vomiting. Exam Narrative: Exam Narrative: Afebrile Gen - NARD sitting up in bed Chest - CTA bilat, nml RR CV - RRR S1/S2 Abd -soft. Nondistended. Positive bowel sounds with minimal upper quadrant tenderness. No guarding Ext -no pedal edema. Psych -normal mood and affect. Skin -warm and dry. Objective Data Vital Signs Vital Signs: Vital Signs - 24 hr 07/23/19 14:38 07/23/19 17:00 02
--- NOTE | 2019-07-24 15:41 | PM.PNCARD ---
Progress Note: A&P Assessment and Plan (1) Chest pain: Code(s): R07.9 - Chest pain, unspecified Status: Acute Assessment and Plan: Has atypical chest pain, but has significant risk factors for coronary disease, including diabetes mellitus, hypertension and dyslipidemia. Stress test is negative: 1. Normal myocardial perfusion at rest and during stress. 2. Left ventricular ejection fraction measuring 83%. (2) Atypical chest pain: Code(s): R07.89 - Other chest pain Status: Acute Assessment and Plan: Work-up per GI pending for possible cholecystitis. (3) Dyslipidemia: Code(s): E78.5 - Hyperlipidemia, unspecified Status: Acute Assessment and Plan: Will check lipid profile and treat accordingly. LDL 70 this admission. (4) H/O: HTN (hypertension): Code(s): Z86.79 - Personal history of other diseases of the circulatory system Status: Inactive Assessment and Plan: Blood pressure well controlled. Continue to monitor on current regimen. (5) DM (diabetes mellitus): Qualifiers: Diabetes mellitus type: type 2 Diabetes mellitus usp insulin use: with terminal supervisor use Diabetes mellitus complication status: with other specified complication Qualified Code(s): E11.69 - Type 2 diabetes mellitus with other specified complication; Z79.4 - FPC (current) use of insulin Code(s): E11.9 - Type 2 diabetes mellitus without complications Status: Chronic Assessment and Plan: Management as per primary service. Additional Plan He is okay from cardiac standpoint to undergo surgery if needed Subjective Date/time seen: 07/24/19 15:41 Feels okay today, events noted, he may need gallbladder surgery. Stress test was negative no more chest pain Exam Narrative: Exam Narrative: Awake alert oriented x3 not in acute distress Neck is supple no obvious JVD, no carotid bruit Chest: Good air entry bilaterally, lungs are clear to auscultation and percussion bilaterally Cardiovascular: Regular rate and rhythm, 2/6 systolic murmur noted left sternal border Abdomen: Soft nontender bowel sounds positive Extremities: No edema has good pulses distally bilaterally Objective Data Vital Signs Vital Signs: Vital Signs - 24 hr 07/23/19 17:00 07/23/19 17:10 07/23/19 17:20 Temperature Pulse Rate 94 80 77 Respiratory Rate 19 18 18 Blood Pressure 102/44 L 121/34 L 139/65 Pulse Oximetry 100 100 100 07/23/19 17:30 07/23/19 17:40 07/23/19 17:50 Temperature Pulse Rate 78 79 82 Respiratory Rate 22 H 20 19 Blood Pressure 135/63 145/66 H 144/69 H Pulse Oximetry 100 96 98 07/23/19 18:01 07/23/19 18:27 07/23/19 22:00 Temperature 36.1 C L 37.2 C Pulse Rate 82 82 103 H Respiratory Rate 18 16 21 H Blood Pressure 144/69 H 150/76 H 148/68 H Pulse Oximetry 98 99 100 07/24/19 06:00 07/24/19 10:00 07/24/19 14:00 Temperature 37.0 C 36.8 C 37.3 C Pulse Rate 96 67 91 Respiratory Rate 18 18 14 Blood Pressure 116/51 L 143/67 H 128/73 Pulse Oximetry 96 97 97 Intake/Output Intake/Output: Intake & Output 07/21/19 07/22/19 07/23/19 07/24/19 23:59 23:59 23:59 23:59 Intake Total 240 1600 1100 Output Total 3 Balance 240 1600 1097 Meds/Results Medications: Active Medications Generic Name Dose Route Start Last Admin Trade Name Freq PRN Reason Stop Dose Admin Atorvastatin Calcium 20 mg 07/23/19 09:00 07/24/19 10:01 Lipitor PO 20 mg DAILY VIVIEN Administration Dextrose 12.5 gm 07/22/19 21:18 Dextrose 50% Syringe IV PUSH PRN PRN Hypoglycemia Protocol Glucagon 1 mg 07/22/19 21:18 Glucagon For Inj IM PRN PRN Hypoglycemia Protocol Glucose 15 gm 07/22/19 21:18 Glutose 15 PO PRN PRN Hypoglycemia Protocol Dextrose 1,000 mls @ 100 mls/hr 07/22/19 21:18 Dextrose 5% 1,000 Ml IVPB PRN PRN Hypoglycemia Protocol Ampicillin Sodium/Sul
[2019-07-24 18:00] VITALS: BP 123/79; PULSE 86; RESP 16; TEMP 36.9; O2SAT 98
[2019-07-24] MEDS: INSULIN ASPART (*BKC) 100 UNITS/ML SUB-Q (18:20)
[2019-07-24 18:35] LABS: Glucose Point of Care 319 (65-105)
--- NOTE | 2019-07-24 19:04 | WPDGIPROGNO ---
Progress Note: A&P Assessment and Plan (1) Elevated lipase: Code(s): R74.8 - Abnormal levels of other serum enzymes Status: Acute Assessment and Plan: probably from ercp and instrumentation, ? post-ercp pancreatitis but he does not have nausea or vomiting but will monitor lft's (received indomethacin supp before ercp) tolerating cl diet (2) Choledocholithiasis with acute cholecystitis with obstruction: Onset Date: ~07/21/19 Code(s): K80.43 - Calculus of bile duct with acute cholecystitis with obstruction Status: Acute Assessment and Plan: responding to medical rx, no more leukocytosis timing of lap ismael by surgery (3) Elevated liver enzymes: Onset Date: ~07/21/19 Code(s): R74.8 - Abnormal levels of other serum enzymes Status: Acute (4) DM (diabetes mellitus): Qualifiers: Diabetes mellitus type: type 2 Diabetes mellitus senior care insulin use: with senior care use Diabetes mellitus complication status: with other specified complication Qualified Code(s): E11.69 - Type 2 diabetes mellitus with other specified complication; Z79.4 - termite renewal inspector (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 Noted elevated lipase today after ercp. Review of Systems Constitutional: Constitutional: Denies headache(s) and Denies weakness Eyes: Eyes: Denies blurry vision ENT: Reports Normal hearing present, Denies headache(s) and Denies neck pain Cardiovascular: Cardiovascular: Denies chest pain and Denies dyspnea Respiratory: Respiratory: Denies dyspnea Gastrointestinal: Gastrointestinal: Reports no additional gastrointestinal complaints Genitourinary: Genitourinary: Denies dysuria Musculoskeletal: Musculoskeletal: Denies neck pain Integumentary/Breasts: Skin/Breast: Denies dry skin Neurologic: Reports Normal hearing present, Denies headache(s) and Denies weakness Psychiatric: Psychiatric: Denies anxiety Endocrine: Endocrine: Denies change in body appearance Hematologic/Lymphatic: Hematologic/Lymphatic: Denies easy bleeding Allergic/Immunologic: Allergic/Immunologic: Denies urticaria Exam Const: General: comfortable and no acute distress HENMT: General nose exam: Normal nares present Eyes: General: appearance normal, both eyes and all related structures Neck: Neck: no JVD Resp: Auscultation: clear to auscultation bilaterally Cardio: Rate: regular rate Rhythm: regular rhythm GI: Inspection: non-distended GI Palp: Yes Soft to palpation, No Firmness to palpation present (GI) and No Tenderness to palpation present (GI) Skin: General skin exam: normal color Neuro: General: gait normal Speech: normal speech Extrem: General: normal to inspection Psych: Mental Status: mental status grossly normal Objective Data Vital Signs Vital Signs: Vital Signs - 24 hr 07/23/19 22:00 07/24/19 06:00 07/24/19 10:00 Temperature 98.9 F 98.6 F 98.2 F Pulse Rate 103 H 96 67 Respiratory Rate 21 H 18 18 Blood Pressure 148/68 H 116/51 L 143/67 H Pulse Oximetry 100 96 97 07/24/19 14:00 07/24/19 18:00 Temperature 99.1 F 98.4 F Pulse Rate 91 86 Respiratory Rate 14 16 Blood Pressure 128/73 123/79 Pulse Oximetry 97 98 Intake/Output Intake/Output: Intake & Output 07/21/19 07/22/19 07/23/19 07/24/19 23:59 23:59 23:59 23:59 Intake Total 240 1600 2300 Output Total 3 Balance 240 1600 2297 Meds/Results Medications: Active Medications Generic Name Dose Route Start Last Admin Trade Name Freq PRN Reason Stop Dose Admin Amlodipine Besylate 2.5 mg 07/25/19 09:00 Norvasc PO QAM VIVIEN Atorvastatin Calcium 20 mg 07/23/19 09:00 07/24/19 10:01 Lipitor PO 20 mg DAILY VIVIEN Administration Dextrose 12.5 gm
[2019-07-24] MEDS: SODIUM CHLORIDE 0.9% IV 1,000 ML 70 ML IV CONT (20:37)
[2019-07-24 21:42] LABS: Glucose Point of Care 276 (65-105)
[2019-07-24 22:00] VITALS: BP 135/65; PULSE 84; RESP 20; TEMP 36.9; O2SAT 99
[2019-07-25 02:00] VITALS: BP 122/65; PULSE 101; RESP 20; TEMP 36.6; O2SAT 95
[2019-07-25] MEDS: AMPICILLIN SULB 3 GM/NS 100 ML 3 GM/100 ML VIAL IVPB ×2 (04:16→08:57)
[2019-07-25] MEDS: BENZOCAINE/MENTHOL (*BKC) 18 EA LOZENGE 1 LOZENGE PO (04:36)
[2019-07-25 05:56] LABS: Basophils Absolute Auto 0.1 K/mm3 (0.0-0.1); Basophils Percent Auto 0.7 % (0.2-1.2); Eosinophils Absolute Auto 0.1 K/mm3 (0-0.3); Eosinophils Percent Auto 1.8 % (0-4.4); Hematocrit 37.4 % (42.0-52.0); Hemoglobin 12.5 g/dL (14.0-18.0); Immature Granulocyte Absolute 0.03 K/mm3 (0.00-0.031); Immature Granulocyte Percent A 0.4 % (0-0.5); Lymphocytes Absolute Auto 0.52 K/mm3 (0.9-3.2); Lymphocytes Percent Auto 7.3 % (18.3-44.2); Mean Corpuscular HGB Conc 33.4 g/dl (32-36); Mean Corpuscular Hemoglobin 31.2 pg (26-34); Mean Corpuscular Volume 93.3 fl (80-100); Mean Platelet Volume 10.4 fl (7.4-10.4); Monocytes Absolute Auto 0.8 K/mm3 (0.1-0.6); Neutrophils Absolute Auto 5.6 K/mm3 (1.3-6.7); Neutrophils Percent Auto 78.8 % (45.5-73.1); Platelet Count Result 155 k/mm3 (150-375); Red Blood Count 4.01 M/mm3 (4.6-6.20); Red Cell Distribution Width 12.6 % (11.5-14.5); White Blood Count 7.1 K/mm3 (4.5-10.0)
[2019-07-25 06:00] VITALS: BP 124/71; PULSE 94; RESP 18; TEMP 36.9; O2SAT 95
[2019-07-25 06:14] LABS: Alanine Aminotransferase 217 U/L (4-50); Albumin Level 3.3 g/dL (3.5-5.1); Alkaline Phosphatase 198 U/L (38-126); Aspartate Amino Transferase 113 U/L (17-59); Bilirubin,Total 1.4 mg/dL (0.2-1.3); Blood Urea Nitrogen 20 mg/dL (9-20); Calcium 8.4 mg/dL (8.4-10.2); Carbon Dioxide 25 mmol/L (22-30); Chloride 99 mmol/L (98-107); Estimated CRCL calculation 56 ml/min; Estimated Glomerular Filt Rate 56; Glucose 165 mg/dL (75-110); Lipase 119 U/L (23-300); Magnesium 2.1 mg/dL (1.6-2.3); Potassium 3.6 mmol/L (3.4-5.0); Sodium 138 mmol/L (137-145)
[2019-07-25 06:36] LABS: Hemoglobin A1C 8.8 % (<5.7)
[2019-07-25] MEDS: AMLODIPINE BESYLATE 2.5 MG TABLET PO (08:58)
[2019-07-25 09:04] LABS: Glucose Point of Care 171 (65-105)
--- NOTE | 2019-07-25 09:08 | WPDANESPN ---
Anes - Prog Note Post-Op Date/Time: 07/25/19 09:08 Cardiovascular status: normal Respiratory status: normal Airway patency: baseline Mental status: baseline Post-Op hydration status: normal Vital Signs: Last Vital Signs Temp 36.9 C 07/25/19 06:00 Pulse 94 07/25/19 06:00 Resp 18 07/25/19 06:00 BP 124/71 07/25/19 06:00 Pulse Ox 95 07/25/19 06:00 I/O: Intake & Output 07/24/19 07/25/19 07/25/19 23:59 07:59 15:59 Intake Total 1200 400 600 Balance 1200 400 600 Laboratory Tests 07/25/19 05:17 07/25/19 05:17 07/24/19 07/24/19 07/24/19 08:54 12:34 18:18 WBC RBC Hgb Hct MCV MCH MCHC RDW Plt Count MPV Immature Gran % (Auto) Neut % (Auto) Lymph % (Auto) Real % (Auto) Eos % (Auto) Baso % (Auto) Lymph # (Auto) Real # (Auto) Eos # (Auto) Baso # (Auto) Abs Immat Gran (auto) Absolute Neuts (auto) Absolute Nucleated RBC Nucleated RBC % Sodium Potassium Chloride Carbon Dioxide BUN Creatinine Estim Creat Clear Calc Estimated GFR Glucose POC Capillary Glucose 131 H 199 H 319 H Hemoglobin A1c Calcium Magnesium Total Bilirubin Direct Bilirubin AST ALT Alkaline Phosphatase Total Protein Albumin Lipase 07/24/19 07/25/19 07/25/19 20:36 05:17 05:17 WBC 7.1 RBC 4.01 L Hgb 12.5 L Hct 37.4 L MCV 93.3 MCH 31.2 MCHC 33.4 RDW 12.6 Plt Count 155 MPV 10.4 Immature Gran % (Auto) 0.4 Neut % (Auto) 78.8 H Lymph % (Auto) 7.3 L Real % (Auto) 11.0 H Eos % (Auto) 1.8 Baso % (Auto) 0.7 Lymph # (Auto) 0.52 L Real # (Auto) 0.8 H Eos # (Auto) 0.1 Baso # (Auto) 0.1 Abs Immat Gran (auto) 0.03 Absolute Neuts (auto) 5.6 Absolute Nucleated RBC 0.0 Nucleated RBC % 0.0 Sodium 138 Potassium 3.6 Chloride 99 Carbon Dioxide 25 BUN 20 Creatinine 1.30 Estim Creat Clear Calc 56 Estimated GFR 56 L Glucose 165 H POC Capillary Glucose 276 H Hemoglobin A1c Calcium 8.4 Magnesium 2.1 Total Bilirubin 1.4 H Direct Bilirubin 0.0 AST 113 H ALT 217 H Alkaline Phosphatase 198 H Total Protein 6.0 L Albumin 3.3 L Lipase 119 07/25/19 07/25/19 05:17 09:00 WBC RBC Hgb Hct MCV MCH MCHC RDW Plt Count MPV Immature Gran % (Auto) Neut % (Auto) Lymph % (Auto) Real % (Auto) Eos % (Auto) Baso % (Auto) Lymph # (Auto) Real # (Auto) Eos # (Auto) Baso # (Auto) Abs Immat Gran (auto) Absolute Neuts (auto) Absolute Nucleated RBC Nucleated RBC % Sodium Potassium Chloride Carbon Dioxide BUN Creatinine Estim Creat Clear Calc Estimated GFR Glucose POC Capillary Glucose 171 H Hemoglobin A1c 8.8 H Calcium Magnesium Total Bilirubin Direct Bilirubin AST ALT Alkaline Phosphatase Total Protein Albumin Lipase Post-procedural complaints: none Patient Feedback: Patient satisfied with anesthetic care.
--- NOTE | 2019-07-25 09:17 | WPDGIPROGNO ---
Progress Note: A&P Assessment and Plan (1) Elevated lipase: Code(s): R74.8 - Abnormal levels of other serum enzymes Status: Acute Assessment and Plan: normal lipase now, no nausea or vomiting, no abdominal distension ok to advance diet and timing of lap ismael by surgery (2) Choledocholithiasis with acute cholecystitis with obstruction: Onset Date: ~07/21/19 Code(s): K80.43 - Calculus of bile duct with acute cholecystitis with obstruction Status: Acute Assessment and Plan: ercp with sphincterotomy and sweeping of bile duct, no stones lap ismael by surgery (3) Elevated liver enzymes: Onset Date: ~07/21/19 Code(s): R74.8 - Abnormal levels of other serum enzymes Status: Acute Assessment and Plan: trending down today, cholestatic pattern (4) DM (diabetes mellitus): Qualifiers: Diabetes mellitus complication status: with other specified complication Diabetes mellitus terminal operations manager insulin use: with detention use Diabetes mellitus type: type 2 Qualified Code(s): E11.69 - Type 2 diabetes mellitus with other specified complication; Z79.4 - manager intermediate (current) use of insulin Code(s): E11.9 - Type 2 diabetes mellitus without complications Status: Chronic Subjective Date/time seen: 07/25/19 09:17 Interval history: no nausea, minimal pain in ruq- overall better Review of Systems Review of Systems: All systems reviewed & are unremarkable except as noted in HPI and below Exam Const: General: comfortable and no acute distress HENMT: General nose exam: Normal nares present Eyes: General: appearance normal, both eyes and all related structures Neck: Neck: no JVD Resp: Auscultation: clear to auscultation bilaterally Cardio: Rate: regular rate Rhythm: regular rhythm GI: Inspection: non-distended GI Palp: Yes Soft to palpation, No Firmness to palpation present (GI) and No Tenderness to palpation present (GI) Skin: General skin exam: normal color Neuro: General: gait normal Speech: normal speech Extrem: General: normal to inspection Psych: Mental Status: mental status grossly normal Objective Data Vital Signs Vital Signs: Vital Signs - 24 hr 07/24/19 10:00 07/24/19 14:00 07/24/19 18:00 Temperature 98.2 F 99.1 F 98.4 F Pulse Rate 67 91 86 Respiratory Rate 18 14 16 Blood Pressure 143/67 H 128/73 123/79 Pulse Oximetry 97 97 98 07/24/19 22:00 07/25/19 02:00 07/25/19 06:00 Temperature 98.4 F 97.9 F 98.4 F Pulse Rate 84 101 H 94 Respiratory Rate 20 20 18 Blood Pressure 135/65 122/65 124/71 Pulse Oximetry 99 95 95 Intake/Output Intake/Output: Intake & Output 07/22/19 07/23/19 07/24/19 07/25/19 23:59 23:59 23:59 23:59 Intake Total 240 1600 2400 1000 Output Total 3 Balance 240 1600 2397 1000 Meds/Results Medications: Active Medications Generic Name Dose Route Start Last Admin Trade Name Freq PRN Reason Stop Dose Admin Amlodipine Besylate 2.5 mg 07/25/19 09:00 07/25/19 08:58 Norvasc PO 2.5 mg QAM VIVIEN Administration Atorvastatin Calcium 20 mg 07/23/19 09:00 07/24/19 10:01 Lipitor PO 20 mg DAILY VIVIEN Administration Dextrose 12.5 gm 07/22/19 21:18 Dextrose 50% Syringe IV PUSH PRN PRN Hypoglycemia Protocol Glucagon 1 mg 07/22/19 21:18 Glucagon For Inj IM PRN PRN Hypoglycemia Protocol Glucose 15 gm 07/22/19 21:18 Glutose 15 PO PRN PRN Hypoglycemia Protocol Dextrose 1,000 mls @ 100 mls/hr 07/22/19 21:18 Dextrose 5% 1,000 Ml IVPB PRN PRN Hypoglycemia Protocol Ampicillin Sodium/Sulbactam Sodium 3 gm in 100 mls @ 200 mls/hr 07/23/19 09:00 07/25/19 08:57 Unasyn 3 Gm/Ns 100 Ml IVPB 200 mls/hr Q6H VIVIEN Administration Sodium Chloride 1,000 mls @ 70 mls/hr 07/24/19 18:40 07/24/19 20:37 Normal Saline Iv IV CONT 70 mls/hr .[id number] VIVIEN Administration Insulin Aspart 2 - 5 units
[2019-07-25 10:00] VITALS: BP 129/69; PULSE 87; RESP 16; TEMP 36.1; O2SAT 95
[2019-07-25 11:24] LABS: Glucose Point of Care 334 (65-105)
[2019-07-25] MEDS: INSULIN ASPART (*BKC) 100 UNITS/ML SUB-Q (11:36)
--- NOTE | 2019-07-25 12:40 | PM.PNCARD ---
Progress Note: A&P Assessment and Plan (1) Chest pain: Code(s): R07.9 - Chest pain, unspecified Status: Acute Assessment and Plan: Has atypical chest pain, but has significant risk factors for coronary disease, including diabetes mellitus, hypertension and dyslipidemia. Stress test is negative: 1. Normal myocardial perfusion at rest and during stress. 2. Left ventricular ejection fraction measuring 83%. (2) Atypical chest pain: Code(s): R07.89 - Other chest pain Status: Acute Assessment and Plan: Work-up per GI pending for possible cholecystitis. (3) Dyslipidemia: Code(s): E78.5 - Hyperlipidemia, unspecified Status: Acute Assessment and Plan: Will check lipid profile and treat accordingly. LDL 70 this admission. (4) H/O: HTN (hypertension): Code(s): Z86.79 - Personal history of other diseases of the circulatory system Status: Inactive Assessment and Plan: Blood pressure well controlled. Continue to monitor on current regimen. (5) DM (diabetes mellitus): Qualifiers: Diabetes mellitus type: type 2 Diabetes mellitus halfway insulin use: with truck terminal manager use Diabetes mellitus complication status: with other specified complication Qualified Code(s): E11.69 - Type 2 diabetes mellitus with other specified complication; Z79.4 - intermediate (current) use of insulin Code(s): E11.9 - Type 2 diabetes mellitus without complications Status: Chronic Assessment and Plan: Management as per primary service. Additional Plan He is okay from cardiac standpoint to undergo surgery if needed Subjective Date/time seen: 07/25/19 12:40 Interval history: no nausea, minimal pain in ruq- overall better Exam Narrative: Exam Narrative: Awake alert oriented x3 not in acute distress Neck is supple no obvious JVD, no carotid bruit Chest: Good air entry bilaterally, lungs are clear to auscultation and percussion bilaterally Cardiovascular: Regular rate and rhythm, 2/6 systolic murmur noted left sternal border Abdomen: Soft nontender bowel sounds positive Extremities: No edema has good pulses distally bilaterally Objective Data Vital Signs Vital Signs: Vital Signs - 24 hr 07/24/19 14:00 07/24/19 18:00 07/24/19 22:00 Temperature 37.3 C 36.9 C 36.9 C Pulse Rate 91 86 84 Respiratory Rate 14 16 20 Blood Pressure 128/73 123/79 135/65 Pulse Oximetry 97 98 99 07/25/19 02:00 07/25/19 06:00 07/25/19 10:00 Temperature 36.6 C 36.9 C 36.1 C L Pulse Rate 101 H 94 87 Respiratory Rate 20 18 16 Blood Pressure 122/65 124/71 129/69 Pulse Oximetry 95 95 95 Intake/Output Intake/Output: Intake & Output 07/22/19 07/23/19 07/24/19 07/25/19 23:59 23:59 23:59 23:59 Intake Total 240 1600 2400 1580 Output Total 3 Balance 240 1600 2397 1580 Meds/Results Medications: Active Medications Generic Name Dose Route Start Last Admin Trade Name Freq PRN Reason Stop Dose Admin Amlodipine Besylate 2.5 mg 07/25/19 09:00 07/25/19 08:58 Norvasc PO 2.5 mg QAM VIVIEN Administration Atorvastatin Calcium 20 mg 07/23/19 09:00 07/24/19 10:01 Lipitor PO 20 mg DAILY VIVIEN Administration Dextrose 12.5 gm 07/22/19 21:18 Dextrose 50% Syringe IV PUSH PRN PRN Hypoglycemia Protocol Glucagon 1 mg 07/22/19 21:18 Glucagon For Inj IM PRN PRN Hypoglycemia Protocol Glucose 15 gm 07/22/19 21:18 Glutose 15 PO PRN PRN Hypoglycemia Protocol Dextrose 1,000 mls @ 100 mls/hr 07/22/19 21:18 Dextrose 5% 1,000 Ml IVPB PRN PRN Hypoglycemia Protocol Ampicillin Sodium/Sulbactam Sodium 3 gm in 100 mls @ 200 mls/hr 07/23/19 09:00 07/25/19 09:27 Unasyn 3 Gm/Ns 100 Ml IVPB Infused Q6H VIVIEN Infusion Sodium Chloride 1,000 mls @ 70 mls/hr 07/24/19 18:40 07/24/19 20:37 Normal Saline Iv IV CONT 70 mls/hr .[id number] VIVIEN Administration Insulin Aspar
--- NOTE | 2019-07-25 13:12 | PM.DS ---
DS: Diagnosis Admitting Diagnosis Admitting Diagnosis: Chest pain, unspecified Discharge Diagnosis (1) Choledocholithiasis with acute cholecystitis with obstruction: Onset Date: ~07/21/19 Code(s): K80.43 - Calculus of bile duct with acute cholecystitis with obstruction Status: Acute Assessment and Plan: CT scan of the abdomen showing choledocholithiasis and gallstones. Suspect this is the etiology of the elevated liver enzymes. Most likely this is the etiology of his chest pain as well. GI was consulted and patient underwent ERCP on 07/23/2019. General surgery also has been consulted for eventual cholecystectomy. Biliary duct was swept multiple times but only sludge removed. Liver enzymes improved yesterday but worsened after the procedure. Lipase also has climbed to 1600 to suggest an ERCP induced pancreatitis. Patient had mild increase in his abdominal pain. Patient held overnight and pain improved. Lipase down to 119. AST 113 and ALT 217 both improved. He had low grade fever on admission with WBC of 11K. He was started on Unasyn. White count normalized. No further fevers. Blood cultures remain negative. Upper quadrant ultrasound showing acute cholecystitis. Patient was started on clear liquid diet. His diet was advanced he tolerated this well. Currently on low-fat diet. Plan for cholecystectomy in 2 days time. Will discharge home with planned outpatient procedure. (2) Atypical chest pain: Code(s): R07.89 - Other chest pain Status: Acute Assessment and Plan: Patient with atypical chest pain. Cardiac enzymes are all negative. Lexiscan stress test was negative. Chest pain possibly related to above. Aspirin has been stopped. Lipitor on hold due to the elevated LFTs. (3) Acute renal failure: Code(s): N17.9 - Acute kidney failure, unspecified Status: Acute Assessment and Plan: Creatinine 1.5 on admission. No prior history of renal insufficiency. No prior labs available for review. Lisinopril has been held. Creatinine peaked at 1.7 before improving to 1.3 today. Probably ATN. (4) Elevated liver enzymes: Onset Date: ~07/21/19 Code(s): R74.8 - Abnormal levels of other serum enzymes Status: Acute Assessment and Plan: Elevated liver enzymes most likely related to above. Repeat liver enzymes after discharge (5) HTN (hypertension) with goal to be determined: Code(s): I10 - Essential (primary) hypertension Status: Chronic Assessment and Plan: Blood pressure reviewed on 07/24/2019. Blood pressure elevated at times but overall stable. Lisinopril on hold due to his elevated creatinine. Continue to monitor for now. Will add low dose Amlodipine. 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 Glucose monitor closely. Glucose well controlled when diet was restricted. Glucose increased to 300 past 24 hours since starting back his diet. Resume home medications at discharge (7) Dyslipidemia: Code(s): E78.5 - Hyperlipidemia, unspecified Status: Acute Assessment and Plan: LFTs elevated. LDL 70. HDL 54. Hold Lipitor given his elevated liver enzymes. DS: Summary Hospital Course Reason for hospitalization: 63yo male here for chest pain. Please see H&P for details. Hospital Course: As above. Time Spent with Patient Time attestation: Total time spent providing and/or coordinating discharge services: 32 minutes. Time spent: Greater than 30 minutes Exam
--- NOTE | 2019-07-25 14:53 | PM.PNGS ---
Progress Note: A&P Assessment and Plan (1) Pancreatitis due to biliary obstruction: Code(s): K85.90 - Acute pancreatitis without necrosis or infection, unspecified; K83.1 - Obstruction of bile duct Status: Acute Assessment and Plan: Pancreatitis is resolving. Patient is tolerating a low-fat diet. Currently he is scheduled for laparoscopic cholecystectomy on 07/[address] Willoughby. Will plan to send patient home today for follow-up as an elective outpatient surgery. He was instructed to call the office or return to the emergency department with any recurrent symptoms. (2) Choledocholithiasis with acute cholecystitis with obstruction: Onset Date: ~07/21/19 Code(s): K80.43 - Calculus of bile duct with acute cholecystitis with obstruction Status: Acute (3) Elevated liver enzymes: Onset Date: ~07/21/19 Code(s): R74.8 - Abnormal levels of other serum enzymes Status: Acute Subjective Subjective Date/Time Seen: 07/25/19 14:53 Feeling better today. abdominal pain resolved. Tolerating low fat diet. Review of Systems Constitutional: Constitutional: Denies chills and Denies fever(s) Gastrointestinal: Gastrointestinal: Denies abdominal pain, Denies nausea and Denies vomiting Exam GI: Inspection: non-distended GI Palp: Yes Soft to palpation, No Tenderness to palpation present (GI) and No Guarding due to palpation present (GI) Percussion: Yes normal to percussion Auscultation: normal bowel sounds Objective Data Vital Signs Vital Signs: Vital Signs - 24 hr 07/24/19 18:00 07/24/19 22:00 07/25/19 02:00 Temperature 36.9 C 36.9 C 36.6 C Pulse Rate 86 84 101 H Respiratory Rate 16 20 20 Blood Pressure 123/79 135/65 122/65 Pulse Oximetry 98 99 95 07/25/19 06:00 07/25/19 10:00 Temperature 36.9 C 36.1 C L Pulse Rate 94 87 Respiratory Rate 18 16 Blood Pressure 124/71 129/69 Pulse Oximetry 95 95 Intake/Output Intake/Output: Intake & Output 07/22/19 07/23/19 07/24/19 07/25/19 23:59 23:59 23:59 23:59 Intake Total 240 1600 2400 2580 Output Total 3 Balance 240 1600 2397 2580 Meds/Results Radiology Results: ITS Impressions Chest X-Ray 07/22/19 11:35 IMPRESSION: No acute cardiopulmonary findings. Abdomen/Pelvis CT 07/22/19 23:30 IMPRESSION: 1. Cholelithiasis with multiple common duct stones and gallbladder wall thickening. Findings suspicious for cholecystitis. Correlate clinically. Pharmacological Stress Test 07/23/19 09:42 IMPRESSION: 1. Normal myocardial perfusion at rest and during stress. 2. Left ventricular ejection fraction measuring 83%. Upper Quadrant Ultrasound 07/23/19 11:05 IMPRESSION: 1. Acute cholecystitis. Endo Retro Cholangiopancreatogram 07/24/19 06:52 IMPRESSION: 1. No choledocholithiasis. Please refer to the ERCP procedure note for additional details. Labs Labs: Laboratory Results - last 24 hr 07/24/19 07/24/19 07/25/19 18:18 20:36 05:17 WBC 7.1 RBC 4.01 L Hgb 12.5 L Hct 37.4 L MCV 93.3 MCH 31.2 MCHC 33.4 RDW 12.6 Plt Count 155 MPV 10.4 Immature Gran % (Auto) 0.4 Neut % (Auto) 78.8 H Lymph % (Auto) 7.3 L Gates % (Auto) 11.0 H Eos % (Auto) 1.8 Baso % (Auto) 0.7 Lymph # (Auto) 0.52 L Gates # (Auto) 0.8 H Eos # (Auto) 0.1 Baso # (Auto) 0.1 Abs Immat Gran (auto) 0.03 Absolute Neuts (auto) 5.6 Absolute Nucleated RBC 0.0 Nucleated RBC % 0.0 Sodium Potassium Chloride Carbon Dioxide BUN Creatinine Estim Creat Clear Calc Estimated GFR Glucose POC Capillary Glucose 319 H 276 H Hemoglobin A1c Calcium Magnesium Total Bilirubin Direct Bilirubin AST ALT Alkaline Phosphatase Total Protein Albumin Lipase 07/25/19 07/25/19 07/25/19 05:17 05:17 09:00 WBC RBC Hgb Hct MCV MCH MCHC RDW Plt Count MPV Immatu
--- NOTE | 2019-07-28 11:05 | PC.NURSE ---
Blood cx is negative. Dr. Jagruti schaefer.
== END 2019-07-25 13:50 | disposition home or self-care (01) | DRG 393 ==
LOC: ANHED 16:15 → ANHCPC 16:18 → ANH2MED 07-23 17:41
PROVIDERS: Internal Medicine Gastroenterology; Nurse Practitioner; Specialist; Surgery; Admitting Provider Family Medicine; Emergency Provider Family Medicine; Visit Provider Internal Medicine
PROC: 0F798ZZ Dilation of Common Bile Duct, Via Natural or Artificial Opening Endoscopic (ICD-10-PCS; CPT 43260; principal; 2019-07-23 15:30)
DX: K91.89 Other postprocedural complications and disorders of digestive system (principal); K85.90 Acute pancreatitis without necrosis or infection, unspecified; K80.43 Calculus of bile duct with acute cholecystitis with obstruction; N17.9 Acute kidney failure, unspecified; Z92.21 Personal history of antineoplastic chemotherapy; Z85.72 Personal history of non-Hodgkin lymphomas; I69.328 Other speech and language deficits following cerebral infarction; Z87.891 Personal history of nicotine dependence; E11.9 Type 2 diabetes mellitus without complications; I10 Essential (primary) hypertension; E78.5 Hyperlipidemia, unspecified; I69.398 Other sequelae of cerebral infarction; H53.9 Unspecified visual disturbance; Z90.49 Acquired absence of other specified parts of digestive tract; E66.9 Obesity, unspecified; Z68.32 Body mass index [BMI] 32.0-32.9, adult; K29.70 Gastritis, unspecified, without bleeding; Z79.4 Long term (current) use of insulin
CPT/HCPCS: 36415; 71045; 74177; 74329; 76705; 78452; 80048; 80053; 80061; 80076; 83036; 83690; 83735; 84443; 84484; 85025; 85027; 85610; 87040; 87804; 93005; 93017; 96372; 96374; 99285; A9270; A9502; J0295; J0330; J1650; J1815; J2270; J2704; J7030; J7120; Q9967

== ENCOUNTER 2019-07-27 01:52 | Day surgery (SDC) | payer OTHER, SELFPAY ==
[2019-07-27] VITALS (8 sets, daily range): BP systolic 135–158; BP diastolic 65–73; PULSE 73–84; RESP 10–20; TEMP 36.2–36.6; O2SAT 92–99; BMI 33.9
--- NOTE | ~2019-07-27 | XR_ITS ---
EXAMINATION: XR cholangiogram surg 1st inj DATE: 07/27/2019 16:04 INDICATION: Cholelithiasis. TECHNIQUE: 261 fluoroscopic images of the right upper quadrant were obtained during intraoperative ch olangiography performed by the surgeon. I was not present in the operating room. Fluoroscopy exposure time was 49 seconds. COMPARISON: CT abdomen and pelvis 07/22/2019 FINDINGS: There is a catheter in the cystic duct. There are multiple stones in the cystic duct measur ing up to 4 mm. The common duct is normal in caliber. Contrast passes to the duodenum. IMPRESSION: 1. Stones in the cystic duct. Reviewed, dictated and finalized at location A. ORK OPERATIONS ANALYST
--- NOTE | 2019-07-27 08:14 | WPDANESEPPF ---
Anes - Initial Pre Proc Eval Procedure: Operation Date: 07/27/19 14:00 Proposed Procedures p Laparoscopic Cholecystectomy with Intra Operative Cholangiograms, Possible Openn - Alex Willoughby MD Date/Time: 07/27/19 08:14 Surgeon: Alex Willoughby MD Pre Op Diagnosis: chronic cholecystitis with cholelthiasis Patient Data Age: 63 Gender: M Height: Weight: Allergies Allergy/AdvReac Type Severity Reaction Status Date / Time No Known Allergies Allergy Verified 07/27/19 08:42 Home Medications Medication Instructions Recorded Confirmed Type Elieraglar ThomasikPen U-100 Insulin 42 unit SUBCUT DAILY 07/22/19 07/27/19 History Jardiance 25 mg PO QAM 07/22/19 07/27/19 History Trulicity 1.5 mg SUBCUT WEEKLY 07/22/19 07/27/19 History aspirin 81 mg PO DAILY 07/22/19 07/27/19 History atorvastatin 20 mg PO DAILY 07/22/19 07/27/19 History lisinopril 10 mg PO DAILY 07/22/19 07/27/19 History lisinopril-hydrochlorothiazide 1 tablet PO DAILY 07/22/19 07/27/19 History metformin 1,000 mg PO BID 07/22/19 07/27/19 History sildenafil 100 mg PO DAILY PRN 07/22/19 07/27/19 History levofloxacin [Levaquin] 500 mg PO DAILY #5 tablet 07/25/19 07/27/19 Rx ferrous sulfate [iron] 325 mg PO DAILY 07/27/19 07/27/19 History ECG: Date of Service: 07/22/19 Procedure(s): CA 12 lead EKG Accession Number(s): [id number] cc: ~ Measurements Intervals [place] Rate: 79 P: 45 MS: 182 QRS: 50 QRSD: 97 T: 33 QT: 374 QTc: 430 Interpretive Statements SINUS RHYTHM BORDERLINE ST-T WAVE ABNORMALITY- INFERIOR LEADS BORDERLINE ECG Electronically Signed On 07-22-2019 15:42:52 MINE ENGINEERING MANAGER by Raghav Hart D.O. Dictated By: Raghav Hart DO 07/22/19 1056 Other Studies: Stress test is negative: 1. Normal myocardial perfusion at rest and during stress. 2. Left ventricular ejection fraction measuring 83%. Patient hx anesthesia problems: none Family hx anesthesia problems: none [facility] Past Medical History Medical History (Updated 07/27/19 @ 08:16 by Marcus Jason MD) Arthritis Asthma CVA (cerebral vascular accident) At affected his speech and his left eye patient had a stent to his left eye. DM (diabetes mellitus) Type 2 Elevated lipase History of benign colon tumor It was found to be been night however of 130 was colon was removed. 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 HTN (hypertension) with goal to be determined Lymphoma Chemotherapy approximately 2 years ago and he is now in remission. Medical history unknown Surgical History Surgical History (Updated 07/22/19 @ 21:30 by Misa Lewis NP) H/O colectomy H/O eye surgery Stent to left eye Family History Family History (Updated 07/22/19 @ 21:34 by Misa Lewis NP) Mother Hypertension Alzheimer disease Now 92 Father Macrocytic anemia at the age of 45 Sibling of unknown cause at the age of 57 cardiac arrest Social History Social History (Updated 07/22/19 @ 21:35 by Misa Lewis NP) Social History: Patient desires to be a full code. His Renate is his durable power disability attorney. And also his 2 children. 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 He quit smoking 20 years ago. Quit drinking 10 years ago. Smoking packs per day: 2 Smoking cigarettes per day: 40.0 Years smoked: 20 Smoking pack-years: 40.00 Smoking status: Former smoker Tobacco type: cigarettes Second hand tobacco smoke exposure: Yes Alcohol intake: former Drinks per week: 0 Substance use: never Substance use type: does not use Gender identity (if verbalized by the patient): Male Spiritual care concerns: No
[2019-07-27] MEDS: LACTATED RINGERS 1,000 ML 30 ML IV CONT ×2 (13:00→16:41)
[2019-07-27 13:10] LABS: Hematocrit 40.7 % (42.0-52.0); Hemoglobin 13.7 g/dL (14.0-18.0); Mean Corpuscular HGB Conc 33.7 g/dl (32-36); Mean Corpuscular Hemoglobin 31.4 pg (26-34); Mean Corpuscular Volume 93.1 fl (80-100); Mean Platelet Volume 10.2 fl (7.4-10.4); Platelet Count Result 195 k/mm3 (150-375); Red Blood Count 4.37 M/mm3 (4.6-6.20); Red Cell Distribution Width 12.3 % (11.5-14.5); White Blood Count 6.5 K/mm3 (4.5-10.0)
[2019-07-27 13:22] LABS: Alanine Aminotransferase 110 U/L (4-50); Alkaline Phosphatase 151 U/L (38-126); Aspartate Amino Transferase 44 U/L (17-59); Blood Urea Nitrogen 24 mg/dL (9-20); Calcium 8.9 mg/dL (8.4-10.2); Carbon Dioxide 23 mmol/L (22-30); Chloride 99 mmol/L (98-107); Estimated CRCL calculation 64 ml/min; Estimated Glomerular Filt Rate > 60; Glucose 76 mg/dL (75-110); Lipase 47 U/L (23-300); Potassium 4.1 mmol/L (3.4-5.0); Sodium 137 mmol/L (137-145)
--- NOTE | 2019-07-27 13:59 | WPDHPUPDATE1 ---
History and Physical Update Update Date/Time: 07/27/19 13:59 History and Physical has been reviewed, including an updated exam of the patient. There are NO changes in the patient's condition. Risks, benefits, and alternatives have been discussed and questions answered. Patient agrees to proceed with procedure.
[2019-07-27 14:05] LABS: Glucose Point of Care 60 (65-105)
[2019-07-27] MEDS: ceFAZolin 2 GM/D5W 50 ML 2 GM/50 ML BAG IVPB (14:18)
[2019-07-27] MEDS: BUPIVACAINE/EPINEPHRINE 0.5% 30 ML VIAL INFILTRATE (14:45)
--- NOTE | 2019-07-27 16:34 | PM.PROC ---
Procedure Note - Detailed Date of procedure: 07/27/19 Pre-op diagnosis: chronic cholecystitis with cholelthiasis 2. Recent choledocholithiasis Post-op diagnosis: other (1. Chronic cholecystitis with cholelithiasis. 2. Recent choledocholithiasis. 3. Small stones in residual long cystic duct) Procedure performed: Laparoscopic cholecystectomy with intraoperative cholangiogram. Description of procedure: Procedure Details: Patient was seen preoperatively in the holding area and risks, benefits and alternatives confirmed. Patient was taken to the operating room and general anesthesia was induced. A time out was then preformed with the surgery team confirming patient and site of surgery. The abdomen was prepped and draped in the usual sterile fashion. Incision was made just above the umbilicus at the upper end of his old infraumbilical scar from his previous colon surgery. Two stay sutures of O- Vicryl were used to elevate the mid-line fascia beneath the umbilicus and a small incision was made under direct vision. The peritoneum was entered. The 12 mm Bruce cannula was introduced under direct vision. First under low flow and then under high flow the abdomen was insufflated with carbon dioxide never exceeding a pressure of 14. Three 5 mm trocars were then introduced under direct vision. The following trocars were introduced under direct vision: a 5 mm in the epigastrium and two 5 mm trocars along the right costal margin. We used the 5 mm laparoscoped to look from 1 of the subcostal ports back at the umbilicus and there was no sign of adhesions underneath his previous colectomy scar. He may have an early direct right inguinal hernia but this was not deep into the groin. There were some adhesions on the lower corner of the gallbladder between the duodenum and the inferior edge of the gallbladder. I dissected these off and carefully dissected out the triangle of Calot. Both the cystic duct and cystic artery were identified and a window of safety identified behind them against the gallbladder bed. Once this dissection was completed I decided to do a cholangiogram because the patient had had common duct sludge noted on his ERCP done last Thrusday. Next the gall bladder was grasped and the cystic duct and artery were dissected free and clipped with an 5 mm endo-clip [employer] compliance internship. A small hole was made in the cystic duct with endoshears and a cholagio-cath introduced. A cholangiogram was obtained revealing free flow into the cystic duct, common bile duct, common hepatic, right and left hepatic ducts with free flow into the duodenum with no filling defects in the intra nor extrahepatic biliary tree and no dilation. Cystic duct was noted to be fairly long. The radiologist that review the cholangiogram felt that perhaps there were small calcified stones remaining in the almost 4 cm long cystic duct. The common duct however was clear of any obstruction or stones and there was good flow into the duodenum. After flushing with saline using 20 cc of the fluid and repeating the cholangiogram there was really no change. I think another possibility is that the the filling defects were some of the anti Courage caused by the valves in the cystic duct. Erratically low be no flow through the cystic duct therefore I decided not to do any further dissection as this may endanger the external appendix biliary tree. The catheter was removed and before applying clips I carefully milked the cystic duct from the patient's side toward the opening and I did not get any sludge or stones to come out the opening where the catheter had been. The cystic duct was then clipped with a 5 mm endoclip-ncaa compliance internship. The cystic duct was then transected. The cystic artery was also transected at this point. The gall bladder was removed using electrocautery. As we dissected up the back of the gallbladder on the gallbladder wall there was a brisk arterial bleeder which was clipped and then cauterized I believe this was a p
[2019-07-27 16:54] LABS: Glucose Point of Care 88 (65-105)
[2019-07-27] MEDS: ONDANSETRON INJ 4 MG/2 ML VIAL IV PUSH (17:45)
== END 2019-07-27 19:04 | disposition home or self-care (01) ==
PROVIDERS: PCP Internal Medicine; Visit Provider Surgery
PROC: 0FT44ZZ Resection of Gallbladder, Percutaneous Endoscopic Approach (ICD-10-PCS; CPT 47562; principal; 2019-07-27 14:00)
DX: K80.64 Calculus of gallbladder and bile duct with chronic cholecystitis without obstruction (principal); J45.909 Unspecified asthma, uncomplicated; E11.9 Type 2 diabetes mellitus without complications; M19.90 Unspecified osteoarthritis, unspecified site; I10 Essential (primary) hypertension; Z85.72 Personal history of non-Hodgkin lymphomas; Z90.49 Acquired absence of other specified parts of digestive tract; Z86.73 Personal history of transient ischemic attack (TIA), and cerebral infarction without residual deficits; Z79.82 Long term (current) use of aspirin; Z79.84 Long term (current) use of oral hypoglycemic drugs; Z87.891 Personal history of nicotine dependence; E66.9 Obesity, unspecified; Z68.31 Body mass index [BMI] 31.0-31.9, adult
CPT/HCPCS: 47563; 36415; 74300; 80053; 83690; 85027; 88304; J0690; J1100; J1170; J2250; J2405; J2704; J3010; J7030; J7120; Q9966

== ENCOUNTER 2022-11-20 06:56 | Observation (INO) | payer OTHER, SELFPAY ==
[2022-11-20] VITALS (17 sets, daily range): BP systolic 120–146; BP diastolic 58–96; PULSE 72–91; RESP 13–18; TEMP 36.1–36.6; O2SAT 95–100; BMI 32.7
--- NOTE | 2022-11-20 | ECHO_ITS ---
Patient Info Name: Young Márquez Age: 66 years : 1955 Gender: Male Ht: 66 in Wt: 202 lbs BSA: 2.10 m2 HR: 75 bpm BP: 136 / 68 mmHg Heart Rhythm: Sinus Rhythm Technical Quality: Fair Exam Date: 11/20/2022 2:02 PM Exam Location: [facility] Patient Status: Inpatient Admit Date: 11/20/2022 Staff Ordering Physician: Misa Lewis NP Bleach Plant Operator: Brenda Noriega RDCS Attending Provider: Falguni Marlow DO Referring Physician: Joshua HYATT; Exam Type: CA echo doppler color flow Study Info Indications - tia Complete two-dimensional, color flow and Doppler transthoracic echocardiogram is performed with contrast to opacify the left ventricle and to improve the deliniation of the left ventricle endocardial borders. Contrast/Agitated Saline Contrast/Ag. Saline: Definity Amount: 2.00 ml Administered By: Brenda Noriega RDCS Existing IV Access: Yes IV Access Condition: patent with no signs of infiltration Summary 1. Left ventricular chamber dimension is normal. 2. Left ventricular systolic function is normal, estimated at 65-70%. 3. There is mildly increased left ventricular wall thickness. 4. The left ventricular diastolic function is grade I diastolic dysfunction. 5. Right ventricular systolic function is normal. 6. There is severe aortic valve calcification. 7. There is mild aortic valve stenosis with a peak velocity of 181 cm/s, mean gradient of 6 mmHg, and aortic valve area of 1.6 cm2. 8. There is trace mitral valve regurgitation. 9. There is trace tricuspid valve regurgitation. Left Ventricle Left ventricular chamber dimension is normal. Left ventricular systolic function is normal, estimated at 65-70%. There is mildly increased left ventricular wall thickness. The left ventricular diastolic function is grade I diastolic dysfunction. Right Ventricle Right ventricular chamber dimension is normal. Right ventricular systolic function is normal. Left Atria Left atrial chamber dimension is normal. Right Atria Right atrial chamber dimension is normal. Atrial Septum Intact interatrial septum visualized by color flow imaging. Aortic Valve The aortic valve is not well visualized. There is mild aortic valve stenosis with a peak velocity of 181 cm/s, mean gradient of 6 mmHg, and aortic valve area of 1.6 cm2. There is no aortic valve regurgitation. There is severe aortic valve calcification. Pulmonic Valve The pulmonic valve is not well visualized. Mitral Valve There is trace mitral valve regurgitation. Tricuspid Valve There is trace tricuspid valve regurgitation. Pericardium/Pleural There is no pericardial effusion. Inferior Vena Cava Normal inferior vena cava with >50% collapse upon inspiration consistent with normal right atrial pressure, 3 mmHg. Aorta The aortic root size at the sinus of Valsalva is normal. Left Ventricular Outflow Tract Name Value Normal LVOT 2D LVOT Diameter 2.0 cm LVOT Doppler LVOT Peak Gradient 3 mmHg LVOT Mean Gradient 2 mmHg LVOT VTI 16 cm LVOT VTI/AV VTI Ratio 0.5
--- NOTE | ~2022-11-20 | US_ITS ---
EXAMINATION: US carotid duplex BI DATE: 11/20/2022 17:23 INDICATION: TIA TECHNIQUE: Grayscale, color Doppler, and pulsed Doppler images of the cervical carotid arteries were obtained. The degree of vessel stenosis is placed in one of the following categories: normal, <50%, 5 0-69%, >=70% but less than near-occlusion, near-occlusion, or total occlusion. Note that percent sten osis relative to normal distal artery lumen diameter is indirectly measured from velocity measurement s as described by Zachary, et al. Radiology 2003; 229:340-346. Notes: Normal: Peak systolic velocity <125 centimeters/sec and no plaque <50%. Peak systolic velocity <125 ( EDV <40; ICA/CCA PSV ratio <2.0; used these factors only a tandem lesions or low cardiac output or co ntralateral disease) 50-69 %: PSV 125-230 (EDV 40-100; ratio 2-4) >= 70% but less than near occlusion: PSV greater than 230 (EDV > 100; ratio> 4.0) Near Occlusion: PSV that is variable; markedly narrowed lumen Occlusion: Absent flow on color/spectral Doppler and no lumen on gibbs scale. COMPARISON: None. FINDINGS: RIGHT: The right common carotid artery (CCA) peak systolic velocity (PSV) is 73 cm/s. The right internal car otid artery (ICA) PSV is 34 cm/s. The right ICA end-diastolic velocity (EDV) is 10 cm/s. The right IC A/CCA PSV ratio is 0.5. The external carotid artery (ECA) PSV is 54 cm/s. There is antegrade flow in the right vertebral artery. LEFT: The left CCA PSV is 63 cm/s. The left ICA PSV is 41 cm/s. The left ICA EDV is 18 cm/s. The left ICA/C CA PSV ratio is 0.6. The ECA PSV is 53 cm/s. There is antegrade flow in the left vertebral artery. IMPRESSION: 1. Less than 50% stenosis in the right internal carotid artery by sonographic criteria. 2. Less than 50% stenosis in the left internal carotid artery by sonographic criteria. Reviewed, dictated and finalized at location L. IMPRESSION: 1. Less than 50% stenosis in the right internal carotid artery by sonographic marko hair. 2. Less than 50% stenosis in the left internal carotid artery by sonographic jeni hester.
--- NOTE | ~2022-11-20 | MR_ITS ---
EXAMINATION: MR brain/brain stem wo con DATE: 11/20/2022 17:05 INDICATION: Transient ischemic episode TECHNIQUE: Magnetic resonance imaging (MRI) of the brain and brainstem was performed without intraven ous contrast. Sequences included sagittal and axial T1-weighted SE, axial diffusion-weighted FS SE, a xial 3D SWAN, axial T2-weighted FLAIR, and axial T2-weighted FSE. Apparent diffusion coefficient (ADC ) maps were created. COMPARISON: Head CT dated 11/20/2022 FINDINGS: There are no areas of restricted diffusion to suggest acute infarction. Small region of encephalomala cecily consistent with chronic infarct at the posterior left temporal lobe and posterior left frontal lo be. Additional small old lacunar infarct at the left basal ganglia. No intracranial hemorrhage or abn ormal intracranial mass lesion. There are scattered areas of nonspecific increased T2-weighted signal intensity in the cerebral white matter, predominantly involving the deep and periventricular white m atter. There is linear region of susceptibility artifact evident on the SWAN imaging along the course of the left middle cerebral artery which corresponds to a reported stent. There are no intraparenchy mal signal abnormalities seen on the other pulse sequences. The ventricles are symmetric and normal i n size. There are no abnormal extra-axial fluid collections. Flow voids are seen in the cerebral rozina mari on the T2-weighted sequences consistent with their expected patency. Visualized orbits and soft tissues are unremarkable. There are no areas of abnormal enhancement on the post contrast images. IMPRESSION: 1. No acute intracranial process. 2. Small old infarcts in the posterior left frontal and posterior left temporal lobes at the left bas al ganglia. 3. Scattered nonspecific periventricular predominant white matter T2 hyperintensity consistent with c hronic small vessel ischemic disease. Reviewed, dictated and finalized at location A. IMPRESSION: 1. No acute intracranial process. 2. Small old infarcts in the posterior left frontal and posterior left temporal lobes at the left basal ganglia. 3. Scattered nonspecific periventricular predominant white matter T2 hyperinten sity consistent with chronic small vessel ischemic disease.
--- NOTE | ~2022-11-20 | CT_ITS ---
EXAMINATION: CT brain wo con DATE: 11/20/2022 08:07 INDICATION: Confusion0 TECHNIQUE: Computed tomography (CT) of the head was performed without intravenous contrast. The dose- length product was 605.33 mGy-cm. Automated exposure control and iterative reconstruction technique w ere employed. COMPARISON: None FINDINGS: There is a radiopaque linear devices in the region of the left middle cerebral artery, poss ibly embolization device. There are chronic left frontal and parietal lobe infarctions. There is a ch ronic left lacunar infarction. No ventriculomegaly or midline shift. Mild compensatory dilation of th e left lateral ventricle. No acute intracranial hemorrhage, infarction or mass. Paranasal sinuses and mastoids are pneumatized. No depressed skull fractures. IMPRESSION: 1. No acute intracranial abnormality. 2: Chronic left frontal lobe, left parietal lobe and left lacunar infarctions. Possible embolization device in the region of the left middle cerebral artery. Clinically correlate. Reviewed, dictated and finalized at location .
--- NOTE | 2022-11-20 07:18 | ECG_ITS ---
Measurements Intervals [place] Rate: 82 P: 46 MT: 177 QRS: 54 QRSD: 96 T: 38 QT: 364 QTc: 426 Interpretive Statements SINUS RHYTHM COMPARED TO ECG 07/22/2019 10:56:57 NO SIGNIFICANT CHANGES Electronically Signed On 11-20-2022 16:16:15 CDT by Danielle Horner M.D.
[2022-11-20 07:31] LABS: Glucose Point of Care 153 mg/dl (65-105)
[2022-11-20 07:35] LABS: Basophils Percent Auto 0.8 % (0.2-1.2); Eosinophils Absolute Auto 0.1 K/mm3 (0-0.3); Eosinophils Percent Auto 2.2 % (0-4.4); Hematocrit 45.4 % (42.0-52.0); Immature Granulocyte Absolute 0.01 K/mm3 (0.00-0.031); Immature Granulocyte Percent A 0.2 % (0-0.5); Lymphocytes Absolute Auto 0.75 K/mm3 (0.9-3.2); Lymphocytes Percent Auto 15.1 % (18.3-44.2); Mean Corpuscular Hemoglobin 31.5 pg (26-34); Mean Corpuscular Volume 95.4 fl (80-100); Mean Platelet Volume 9.6 fl (7.4-10.4); Monocytes Absolute Auto 0.5 K/mm3 (0.1-0.6); Monocytes Percent Auto 9.4 % (2.6-8.5); Neutrophils Absolute Auto 3.6 K/mm3 (1.3-6.7); Neutrophils Percent Auto 72.3 % (45.5-73.1); Platelet Count Result 174 k/mm3 (150-375); Red Blood Count 4.76 M/mm3 (4.6-6.20)
[2022-11-20 07:46] LABS: Alanine Aminotransferase 39 U/L (6-50); Albumin Level 4.2 g/dL (3.5-5.1); Alkaline Phosphatase 101 U/L (38-126); Anion Gap 8 mmol/L (8-16); Aspartate Amino Transferase 30 U/L (17-59); Bilirubin,Total 0.9 mg/dL (0.2-1.3); Blood Urea Nitrogen 27 mg/dL (9-20); Calcium 8.8 mg/dL (8.4-10.2); Carbon Dioxide 31 mmol/L (22-30); Chloride 100 mmol/L (98-107); Estimated CRCL calculation 50 ml/min; Estimated Glomerular Filt Rate 51; Glucose 145 mg/dL (65-110); Potassium 3.4 mmol/L (3.4-5.0); Sodium 139 mmol/L (137-145)
--- NOTE | 2022-11-20 07:56 | ED.NEUROSD ---
HPI - Neuro Symptoms/Deficit General Chief Complaint: Neuro Symptoms/Deficit Stated Complaint: disoriented , low BG? Time Seen by Provider: 11/20/22 07:52 History of Present Illness HPI Narrative: Pt had an episode of confusion and disorientation this morning. Pt was doing unusual things for him at 0530, was rumaging around in a drawer and playing with phone and trying to turn off TV with remote and seemed confused. Pt says he was not acting normally and when asked what he was doing he said nothing. Pt remembers doing all this but is not sure why. Checked BS and was 66. Pt returned back to baseline after 20-30 minutes and now has no complaints. Pt never had any AREVALO or numbness or weakness. Pt had CVA 14 years agao and takes baby asa daily. No symptoms of stroke since. Related Data Home Medications Medication Instructions Recorded Confirmed aspirin 81 mg tablet,delayed 81 mg PO DAILY 07/22/19 11/20/22 release atorvastatin 20 mg tablet 20 mg PO DAILY 07/22/19 11/20/22 dulaglutide 1.5 mg/0.5 mL 1.5 mg subcut WEEKLY 07/22/19 11/20/22 subcutaneous pen injector (Trulicity) empagliflozin 25 mg tablet 25 mg PO QAM 07/22/19 11/20/22 (Jardiance) insulin glargine 100 unit/mL (3 38 unit subcut DAILY 07/22/19 11/20/22 mL) subcutaneous pen (Basaglar KwikPen U-100 Insulin) lisinopril 20 1 tablet PO DAILY 07/22/19 11/20/22 mg-hydrochlorothiazide 25 mg tablet metformin 500 mg tablet,extended 1,000 mg PO BID 07/22/19 11/20/22 release 24hr ferrous sulfate 325 mg (65 mg 325 mg PO DAILY 07/27/19 11/20/22 iron) tablet (iron) glimepiride 4 mg tablet 4 mg PO DAILY 11/20/22 11/20/22 potassium 99 mg PO HS 11/20/22 11/20/22 Allergies Allergy/AdvReac Type Severity Reaction Status Date / Time No Known Allergies Allergy Verified 11/20/22 07:21 Review of Systems Review of Systems: All systems reviewed & are unremarkable except as noted in HPI and below PMFSH Past Medical History Medical History (Updated 11/20/22 @ 18:12 by Lennox Powers III, DO) Arthritis Asthma CVA (cerebral vascular accident) At affected his speech and his left eye patient had a stent to his left eye. DM (diabetes mellitus) Type 2 Elevated lipase H/O ischemic left MCA stroke Left MCA stented History of benign colon tumor It was found to be been night however of 130 was colon was removed. 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 HTN (hypertension) with goal to be determined Hyperlipidemia Lymphoma Chemotherapy approximately 2 years ago and he is now in remission. Medical history unknown Pancreatitis due to biliary obstruction Simple right inguinal hernia asymptomatic Surgical History Surgical History (Updated 11/20/22 @ 15:28 by Misa Lewis NP) H/O colectomy History of removal of Port-a-Cath Hx of cholecystectomy Hx of vasectomy Family History Family History Mother Hypertension Alzheimer disease Now 92 Father Macrocytic anemia at the age of 45 Sibling of unknown cause at the age of 57 cardiac arrest Social History Social History (Updated 11/20/22 @ 15:30 by Misa Lewis NP) Social History: Patient desires to be a full code. His Renate is his durable power health care attorney. And also his 2 children. 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 He quit smoking 23 years ago. Quit drinking 14 years ago. Code status full code Smoking packs per day: 2 Smoking cigarettes per day: 40.0 Years smoked: 20 Smoking pack-years: 40.00 Smoking status: Former smoker Tobacco type: cigarettes Second hand tobacco smoke exposure: Yes Alcohol intake: former Drinks per week: 12 Substance use: current Substance use type: other Other substance usage details: CBD for pain Last use: unknown Lack of Transportation: No Lack of Food: Never True Current Housing: [place]
--- NOTE | 2022-11-20 11:21 | PC.NURSE ---
Called dietary and ordered lunch tray for pt at this time. Will have sent to ADMIT room 325.
--- NOTE | 2022-11-20 11:49 | ADMGEN ---
This patient, Young Márquez ., was admitted to [facility] Surg Room 325-02. Patient/family oriented to hospital policies and general routines including ID bracelet, bed and alarms, visiting hours, pain management, procedures, bathroom and other care routines, personal items, smoking policy, room service/diet, and visiting hours. Information on how to activate the Rapid Response Team has been discussed. Patient/Family are encouraged to report perceived risks to care and to ask questions if they do not understand what they are told or what they should do.
[2022-11-20 12:04] LABS: Glucose Point of Care 92 mg/dl (65-105)
--- NOTE | 2022-11-20 12:08 | PC.NURSE ---
Pt states the last time I felt this way I was experiencing mini strokes which then led to a large stroke and I have a stent in my brain behind my left eye .
--- NOTE | 2022-11-20 13:05 | PM.IMHP ---
H&P: HPI History of Present Illness Date/Time: 11/20/22 13:05 Chief Complaint: Neuro symptoms Narrative: This is a 66-year-old male patient who has had multiple TIAs and a CVA in the past. The patient stated that he and had an episode of confusion and disorientation this morning. At 5:30 a.m. this morning he was looking through some drawers and he did even know why he was looking through the doors. The patient was playing with his phone and was turning off the TV with a remote and seemed confused. According to his he was not acting like his normal self. She asked him what he was doing and he would say they was doing nothing. The patient would do things and not know why he was doing them. A blood sugar check of 66 this morning. He then ate some cereal and his blood sugar came up to 166. Upon arrival to the emergency room his blood sugar was 92. The patient is only taking an aspirin and had been on Plavix at 1 time but has taken herself off the Plavix. The patient stated that his speech was abnormal this morning. His last stroke was 14 years ago. The patient has had a left MCA stent. The patient had no focal weakness.The patient stated that he has had low blood sugars in the past and they have been as low as the 60s and the patient has not had any problems or felt this way with a low blood sugar. His last A1c was somewhere around 7.4. His symptoms have now resolved. Head CT was read as. No acute intracranial abnormality. 2: Chronic left frontal lobe, left parietal lobe and left lacunar infarctions. Possible embolization device in the region of the left middle cerebral artery. Clinically correlate. The patient is being admitted to observation status on the date of service of 11/20/2022. Review of Systems Review of Systems: All systems reviewed & are unremarkable except as noted in HPI and below Constitutional: Constitutional: Reports as per HPI and Reports no additional constitutional complaints Eyes: Eyes: Reports as per HPI and Reports no additional eye complaints ENT: Reports system reviewed and no additional complaints, except as documented and Reports Normal hearing present Cardiovascular: Cardiovascular: Reports no additional cardiovascular complaints Respiratory: Respiratory: Reports no additional respiratory complaints and Reports no additional respiratory complaints Gastrointestinal: Gastrointestinal: Reports as per HPI and Reports no additional gastrointestinal complaints Musculoskeletal: Musculoskeletal: Reports no additional musculoskeletal complaints Integumentary/Breasts: Skin/Breast: Reports system reviewed and no additional complaints, except as docu and Reports as per HPI Neurologic: Reports system reviewed and no additional complaints, except as documented, Reports as per HPI and Reports Normal hearing present Psychiatric: Psychiatric: Reports no additional psychiatric complaints and Reports as per HPI Endocrine: Endocrine: Reports no additional endocrine complaints Hematologic/Lymphatic: Hematologic/Lymphatic: Reports no additional hematologic/lymphatic complaints Allergic/Immunologic: Allergic/Immunologic: Reports no additional allergic/immunologic complaints [facility] Past Medical History Medical History (Updated 11/20/22 @ 15:43 by Misa Lewis NP) Arthritis Asthma CVA (cerebral vascular accident) At affected his speech and his left eye patient had a stent to his left eye. DM (diabetes mellitus) Type 2 Elevated lipase H/O ischemic left MCA stroke Left MCA stented History of benign colon tumor It was found to be been night however of 130 was colon was removed. 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 HTN (hypertension) with goal to be determined Hyperlipidemia Lymphoma Chemotherapy approximately 2 years ago and he is now in remission. Medical history unknown Pancreatitis due to biliary obstruction Simple right inguinal hernia asymptomatic Surgical History [place]
[2022-11-20] MEDS: PERFLUTREN LIPID MICROSPHERES 1.5 ML VIAL DILUTED TO 10 ML TOTAL VOLUME IV PUSH (14:30)
[2022-11-20 15:50] LABS: Glucose Point of Care 174 mg/dl (65-105)
[2022-11-20 16:13] LABS: Glucose Point of Care 67 mg/dl (65-105)
[2022-11-20 18:12] LABS: Glucose Point of Care 148 mg/dl (65-105)
[2022-11-20 22:02] LABS: Glucose Point of Care 162 mg/dl (65-105)
[2022-11-20 22:02] LABS: Glucose Point of Care 115 mg/dl (65-105)
[2022-11-21] VITALS: PULSE 78
[2022-11-21 01:08] LABS: Glucose Point of Care 57 mg/dl (65-105)
[2022-11-21 02:00] LABS: Glucose Point of Care 173 mg/dl (65-105)
[2022-11-21 04:00] VITALS: PULSE 73
[2022-11-21 04:04] LABS: Glucose Point of Care 177 mg/dl (65-105)
[2022-11-21 05:43] LABS: Glucose Point of Care 110 mg/dl (65-105)
[2022-11-21 05:45] VITALS: BP 135/77; PULSE 75; RESP 18; TEMP 36.3; O2SAT 98
[2022-11-21 07:15] LABS: Basophils Absolute Auto 0.1 K/mm3 (0.0-0.1); Basophils Percent Auto 1.3 % (0.2-1.2); Eosinophils Absolute Auto 0.1 K/mm3 (0-0.3); Hematocrit 44.7 % (42.0-52.0); Hemoglobin 14.9 g/dL (14.0-18.0); Immature Granulocyte Absolute 0.02 K/mm3 (0.00-0.031); Immature Granulocyte Percent A 0.4 % (0-0.5); Lymphocytes Absolute Auto 0.91 K/mm3 (0.9-3.2); Lymphocytes Percent Auto 19.5 % (18.3-44.2); Mean Corpuscular HGB Conc 33.3 g/dl (32-36); Mean Corpuscular Hemoglobin 31.6 pg (26-34); Mean Corpuscular Volume 94.9 fl (80-100); Mean Platelet Volume 9.8 fl (7.4-10.4); Monocytes Absolute Auto 0.6 K/mm3 (0.1-0.6); Monocytes Percent Auto 11.8 % (2.6-8.5); Platelet Count Result 185 k/mm3 (150-375); Red Blood Count 4.71 M/mm3 (4.6-6.20); Red Cell Distribution Width 12.9 % (11.5-14.5); White Blood Count 4.7 K/mm3 (4.5-10.0)
[2022-11-21 07:34] LABS: Anion Gap 7 mmol/L (8-16); Blood Urea Nitrogen 27 mg/dL (9-20); Calcium 8.5 mg/dL (8.4-10.2); Carbon Dioxide 30 mmol/L (22-30); Chloride 101 mmol/L (98-107); Cholesterol 96 mg/dL (0-200); Estimated CRCL calculation 63 ml/min; Estimated Glomerular Filt Rate > 60; Glucose 97 mg/dL (65-110); HDL Direct 33 mg/dL; Magnesium 2.3 mg/dL (1.6-2.3); Potassium 3.6 mmol/L (3.4-5.0); Sodium 138 mmol/L (137-145); Triglycerides 120 mg/dL (<150)
[2022-11-21 07:36] LABS: LDL Cholesterol Direct 46 mg/dL
[2022-11-21 07:48] LABS: Glucose Point of Care 106 mg/dl (65-105)
[2022-11-21 08:00] VITALS: PULSE 79
[2022-11-21] MEDS: CLOPIDOGREL BISULFATE 75 MG TABLET PO (09:29)
[2022-11-21] MEDS: ASPIRIN 81 MG ENTERIC TABLET PO (09:29)
[2022-11-21] MEDS: ATORVASTATIN 20 MG TABLET PO (09:29)
[2022-11-21 10:12] LABS: Total Triiodothyronine (T3) 1.41 NG/ML (0.97-1.69)
[2022-11-21 10:28] LABS: Glucose Point of Care 154 mg/dl (65-105)
--- NOTE | 2022-11-21 11:00 | PM.DS ---
DS: Admitting Diagnosis Discharge Date 11/21/2022 Admitting Diagnosis Confusion DS: Discharge Diagnosis Discharge Diagnosis (1) TIA (transient ischemic attack): Code(s): G45.9 - Transient cerebral ischemic attack, unspecified Status: Acute (2) Acute confusion: Code(s): R41.0 - Disorientation, unspecified Status: Acute (3) Hyperlipidemia: Code(s): E78.5 - Hyperlipidemia, unspecified Status: Acute DS: Summary Hospital Course Hospital Course: This is a 66-year-old male patient who has had multiple TIAs and a CVA in the past.? The patient stated that he and had an episode of confusion and disorientation yesterday morning.? He had blood sugar check of 66.? He then ate some cereal and his blood sugar came up to 166.? Upon arrival to the emergency room his blood sugar was 92.? The patient is only taking an aspirin and had been on Plavix at 1 time but has taken herself off the Plavix.? His last stroke was 14 years ago.? The patient has had a left MCA stent.? The patient had no focal weakness.T His symptoms have now resolved.? Head CT was read as. No acute intracranial abnormality. 2: Chronic left frontal lobe, left parietal lobe and left lacunar infarctions. Possible embolization device in the region of the left middle cerebral artery. Clinically correlate. MRA showed no acute abnormality. Carotid Doppler showed no significant abnormality. Neurology was consulted and they recommended patient to be restarted on Plavix. Otherwise he is stable and is being discharged home Time Spent with Patient Time attestation: Total time spent providing and/or coordinating discharge services: DS: Data Data Completed and Pending Labs on day of discharge: Labs from last 24 hours 11/21/22 11/21/22 11/21/22 10:26 07:45 06:43 WBC 4.7 RBC 4.71 Hgb 14.9 Hct 44.7 MCV 94.9 MCH 31.6 MCHC 33.3 RDW 12.9 Plt Count 185 MPV 9.8 Immature Gran % (Auto) 0.4 Neut % (Auto) 64.0 Lymph % (Auto) 19.5 [place] % (Auto) 11.8 H Eos % (Auto) 3.0 Baso % (Auto) 1.3 H Lymph # (Auto) 0.91 [place] # (Auto) 0.6 Eos # (Auto) 0.1 Baso # (Auto) 0.1 Abs Immat Gran (auto) 0.02 Absolute Neuts (auto) 3.0 Absolute Nucleated RBC 0.0 Nucleated RBC % 0.0 Sodium 138 Potassium 3.6 Chloride 101 Carbon Dioxide 30 Anion Gap 7 L BUN 27 H Creatinine 1.10 Estim Creat Clear Calc 63 Estimated GFR > 60 Glucose 97 POC Capillary Glucose 154 H 106 H Hemoglobin A1c Calcium 8.5 Magnesium 2.3 Triglycerides 120 Cholesterol 96 LDL Cholesterol Direct 46 HDL Direct 33 TSH (Reflex) 4.060 Free T4 0.90 Total T3 1.41 11/21/22 11/21/22 11/21/22 06:40 05:33 03:57 WBC RBC Hgb Hct MCV MCH MCHC RDW Plt Count MPV Immature Gran % (Auto) Neut % (Auto) Lymph % (Auto) [place] % (Auto) Eos % (Auto) Baso % (Auto) Lymph # (Auto) [place] # (Auto) Eos # (Auto) Baso # (Auto) Abs Immat Gran (auto) Absolute Neuts (auto) Absolute Nucleated RBC Nucleated RBC % Sodium Potassium Chloride Carbon Dioxide Anion Gap BUN Creatinine Estim Creat Clear Calc Estimated GFR Glucose POC Capillary Glucose 110 H 177 H Hemoglobin A1c 7.0 H Calcium Magnesium Triglycerides Cholesterol LDL Cholesterol Direct HDL Direct TSH (Reflex) Free T4 Total T3 11/21/22 11/21/22 11/20/22 01:57 01:06 21:59 WBC RBC Hgb Hct MCV MCH MCHC RDW Plt Count MPV Immature Gran % (Auto) Neut % (Auto) Lymph % (Auto) [place] % (Auto) Eos % (Auto) Baso % (Auto) Lymph # (Auto) [place] # (Auto) Eos # (Auto) Baso # (Auto) Abs Immat Gran (auto) Absolute Neuts (auto) Absolute Nucleated RBC Nucleated RBC % Sodium Potassium Chloride Carbo
[2022-11-21 12:00] VITALS: PULSE 90
[2022-11-21 12:04] LABS: Glucose Point of Care 173 mg/dl (65-105)
--- NOTE | 2022-11-21 12:15 | WPDNEURCNPN ---
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 Márquez is a 66 year old male with a history of HTN, HLD, prior L MCA territory stroke presenting due to acute episode of confusion. MRI brain was negative for acute stroke. Concern for possible TIA. Based on event, did not seem like a seizure. - Continue Aspirin, add Plavix - Continue statin at same dose - Discussed importance of controlling diabetes in hopes of preventing future stroke - Ok to discharge Consult date: 11/21/22 Reason for consult: TIA HPI: Young Márquez Sr. is a 66 year old male with a prior history of TIA and L MCA territory stroke presenting due to concerns for confusion. Patient's last known well was on 11/19 when he went to sleep. He woke up yesterday morning and was looking through some drawers but did not know what he was looking for. Per , he was not acting like himself. She denied any seizure like activity such as unresponsiveness or abnormal involuntary movements. The episode of ocnfusion lasted about 20-30 minutes and self-resolved. He was acting like himself immediately afterwards. His blood sugar was 66 that morning. He at some cereal and his blood sugar came up to 166. He was taken to the emergency department where he was back to baseline. He had no focal deficits. His CT head showed chronic L MCA territory infarct and embolization device noted in the region of the L MCA. Patient takes aspirin but has been off Plavix for some time. MRI Brain did not show any acute abnormalities. Carotid doppler was unrevealing as well as the surface echocardiogram. His LDL was 46. He is already on a statin. His most recent A1c was 7.4. Patient denies any baseline deficits from the L MCA territory stroke about 14 years ago but does note that if he gets tired, his speech will be off. He is no longer a smoker. Review of Systems Constitutional: Constitutional: Denies chills, Denies fever(s) and Denies weight loss Eyes: Eyes: Denies diplopia and Denies loss of vision ENT: Denies dizziness, Denies hearing loss and Denies tinnitus Cardiovascular: Cardiovascular: Denies chest pain, Denies syncope and Denies dyspnea Respiratory: Respiratory: Denies cough, Denies dyspnea and Denies wheezing Gastrointestinal: Gastrointestinal: Denies abdominal pain, Denies change in bowel habits and Denies vomiting Genitourinary: Genitourinary: Denies urinary incontinence Musculoskeletal: Musculoskeletal: Denies arthralgias and Denies joint swelling Integumentary/Breasts: Skin/Breast: Denies new lesions and Denies rash Neurologic: Reports as per HPI, Denies dizziness, Denies syncope and Denies loss of vision Psychiatric: Psychiatric: Denies anxiety and Denies depression Endocrine: Endocrine: Denies cold intolerance and Denies heat intolerance Hematologic/Lymphatic: Hematologic/Lymphatic: Denies easy bleeding and Denies easy bruising Allergic/Immunologic: Allergic/Immunologic: Denies no additional allergic/immunologic complaints and Denies wheezing PMFSH Past Medical History Medical His
== END 2022-11-21 12:50 | disposition home or self-care (01) ==
LOC: ANHED 10:45 → ANH3MEDSUR 11:23
PROVIDERS: Nurse Practitioner; Admitting Provider Student in an Organized Health Care Education/Training Program; Emergency Provider Emergency Medicine; PCP Physician Assistant; Visit Provider Hospitalist
DX: G45.9 Transient cerebral ischemic attack, unspecified (principal); R41.0 Disorientation, unspecified; E78.5 Hyperlipidemia, unspecified; E11.9 Type 2 diabetes mellitus without complications; J45.909 Unspecified asthma, uncomplicated; I11.9 Hypertensive heart disease without heart failure; Z95.828 Presence of other vascular implants and grafts; I69.328 Other speech and language deficits following cerebral infarction; I35.0 Nonrheumatic aortic (valve) stenosis; I69.398 Other sequelae of cerebral infarction; Z87.891 Personal history of nicotine dependence; F12.90 Cannabis use, unspecified, uncomplicated; Z79.82 Long term (current) use of aspirin; Z79.85 Long-term (current) use of injectable non-insulin antidiabetic drugs; Z79.4 Long term (current) use of insulin; Z79.84 Long term (current) use of oral hypoglycemic drugs; Z79.899 Other long term (current) drug therapy
CPT/HCPCS: 36415; 70450; 70551; 80048; 80053; 80061; 82948; 83036; 83735; 84439; 84443; 84480; 85025; 93005; 93306; 93880; 96374; 99285; A9270; C8929; G0378; Q9957

== ENCOUNTER 2023-05-21 00:44 | Day surgery (SDC) | payer OTHER, SELFPAY ==
[2023-05-13 15:27] VITALS: BMI 34.2
--- NOTE | 2023-05-14 09:43 | PC.NURSE ---
Spoke with __patient_ regarding medication __Plavix____. Pt. verbalizes understanding that the last dose of __Plavix is to be taken on _05/16/2023___ and the Endoscopist will instruct them when to restart after the procedure. Pt instructed to hold Iron starting 05/16/2023. These instructions were emailed to patient as requested by patient.
--- NOTE | 2023-05-17 10:36 | SUR.PREOP ---
Patient called regarding upcoming procedure. Reviewed preop instructions, appointment times, and procedure prep.
[2023-05-21 09:47] VITALS: BP 120/85; PULSE 92; RESP 20; TEMP 36.8; O2SAT 98; BMI 33.3
[2023-05-21] MEDS: LACTATED RINGERS 1,000 ML 150 ML IV CONT (09:56)
[2023-05-21 09:57] LABS: Glucose Point of Care 224 mg/dl (65-105)
--- NOTE | 2023-05-21 10:15 | WPDANESEPPF ---
Anes - Initial Pre Proc Eval Procedure: Operation Date: 05/21/23 11:00 Proposed Procedures p Screening Colonoscopy - Shelton Guzman MD Date/Time: 05/21/23 10:15 Surgeon: Shelton Guzman MD Pre Op Diagnosis: neoplasm screening Patient Data Age: 67 Gender: M Height: 1.6 m Weight: 85.5 kg Last Vital Signs Temp 36.8 C 05/21/23 09:47 Pulse 92 05/21/23 09:47 Resp 20 05/21/23 09:47 BP 120/85 05/21/23 09:47 Pulse Ox 98 05/21/23 09:47 O2 Del Method Room Air 05/21/23 09:47 Allergies Allergy/AdvReac Type Severity Reaction Status Date / Time No Known Allergies Allergy Verified 05/21/23 09:45 Home Medications Medication Instructions Recorded Confirmed Type aspirin 81 mg tablet,delayed 81 mg PO DAILY 07/22/19 05/13/23 History release dulaglutide 1.5 mg/0.5 mL 1.5 mg subcut WEEKLY 07/22/19 05/13/23 History subcutaneous pen injector (Trulicity) empagliflozin 25 mg tablet 25 mg PO QAM 07/22/19 05/13/23 History (Jardiance) insulin glargine 100 unit/mL (3 38 unit subcut DAILY 07/22/19 05/13/23 History mL) subcutaneous pen (Basaglar KwikPen U-100 Insulin) lisinopril 20 1 tablet PO DAILY 07/22/19 05/13/23 History mg-hydrochlorothiazide 25 mg tablet metformin 500 mg tablet,extended 1,000 mg PO BID 07/22/19 05/13/23 History release 24hr (osmotic) ferrous sulfate 325 mg (65 mg 325 mg PO DAILY 07/27/19 05/13/23 History iron) tablet (iron) glimepiride 4 mg tablet 4 mg PO DAILY 11/20/22 05/13/23 History potassium 99 mg PO HS 11/20/22 05/13/23 History clopidogrel 75 mg tablet 75 mg PO QAM #30 tabs 11/21/22 05/13/23 Rx tamsulosin 0.4 mg capsule 0.4 mg PO DAILY 03/04/23 05/13/23 History triamcinolone acetonide 0.1 % 1 applic topical BID #15 grams 03/04/23 05/13/23 Rx topical cream atorvastatin 20 mg tablet 20 mg PO DAILY #90 tabs 04/02/23 05/13/23 Rx Laboratory Tests 05/21/23 09:54 POC Capillary Glucose 224 H mg/dl (65-105) Patient hx anesthesia problems: none Family hx anesthesia problems: none Results Review: All pre-operative results and documents have been reviewed as part of the pre-operative evaluation. [facility] Past Medical History Medical History Arthritis Asthma CVA (cerebral vascular accident) At affected his speech and his left eye patient had a stent to his left eye. DM (diabetes mellitus) Type 2 Elevated lipase H/O ischemic left MCA stroke Left MCA stented History of benign colon tumor It was found to be been night however of 130 was colon was removed. 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 HTN (hypertension) with goal to be determined Hyperlipidemia Lymphoma Chemotherapy approximately 2 years ago and he is now in remission. Medical history unknown Pancreatitis due to biliary obstruction Simple right inguinal hernia asymptomatic Surgical History Surgical History H/O colectomy History of removal of Port-a-Cath Hx of cholecystectomy Hx of shoulder surgery Hx of vasectomy Family History Family History Mother Hypertension Alzheimer disease Now 92 Father Macrocytic anemia at the age of 45 Sibling of unknown cause at the age of 57 cardiac arrest Social History Social History Social History: Patient desires to be a full code. 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 And also his 2 children. 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 He quit smoking 23 years ago. Quit drinking 14 years ago. Code status full code Smoking packs per day: 2 Smoking cigarettes per day: 40.0 Years smoked: 20 Smoking pack-years: 40.00 Smoking status: Former smoker Tobacco type: cigarettes Second hand tobac
--- NOTE | 2023-05-21 10:55 | PM.HPGS ---
History of Present Illness History of Present Illness Consent: Risks, benefits, and alternatives have been discussed and questions answered. Patient agrees to proceed with procedure. Chief complaint: neoplasm screening Narrative: Young Márquez is a 67 year old male with colon polyp about 8 years ago Review of Systems Constitutional: Constitutional: Denies headache(s) and Denies weakness Eyes: Eyes: Denies blurry vision ENT: Reports Normal hearing present, Denies headache(s) and Denies neck pain Cardiovascular: Cardiovascular: Denies chest pain and Denies dyspnea Respiratory: Respiratory: Denies dyspnea Gastrointestinal: Gastrointestinal: Reports no additional gastrointestinal complaints Genitourinary: Genitourinary: Denies dysuria Musculoskeletal: Musculoskeletal: Denies neck pain Integumentary/Breasts: Skin/Breast: Denies dry skin Neurologic: Reports Normal hearing present, Denies headache(s) and Denies weakness Psychiatric: Psychiatric: Denies anxiety Endocrine: Endocrine: Denies change in body appearance Hematologic/Lymphatic: Hematologic/Lymphatic: Denies easy bleeding Allergic/Immunologic: Allergic/Immunologic: Denies urticaria PMF Past Medical History Medical History (Updated 05/21/23 @ 10:56 by Shelton Guzman MD) Arthritis Asthma Colon polyp CVA (cerebral vascular accident) At affected his speech and his left eye patient had a stent to his left eye. DM (diabetes mellitus) Type 2 Elevated lipase H/O ischemic left MCA stroke Left MCA stented History of benign colon tumor It was found to be been night however of 130 was colon was removed. 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 HTN (hypertension) with goal to be determined Hyperlipidemia Lymphoma Chemotherapy approximately 2 years ago and he is now in remission. Medical history unknown Pancreatitis due to biliary obstruction Simple right inguinal hernia asymptomatic Surgical History Surgical History H/O colectomy History of removal of Port-a-Cath Hx of cholecystectomy Hx of shoulder surgery Hx of vasectomy Family History Family History Mother Hypertension Alzheimer disease Now 92 Father Macrocytic anemia at the age of 45 Sibling of unknown cause at the age of 57 cardiac arrest Social History Social History Social History: Patient desires to be a full code. His Renate is his durable power deputy county attorney. And also his 2 children. 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 He quit smoking 23 years ago. Quit drinking 14 years ago. Code status full code Smoking packs per day: 2 Smoking cigarettes per day: 40.0 Years smoked: 20 Smoking pack-years: 40.00 Smoking status: Former smoker Tobacco type: cigarettes Second hand tobacco smoke exposure: Yes Alcohol intake: current Drinks per week: 12 Substance use: never Substance use type: does not use Other substance usage details: CBD for pain Last use: unknown Lack of Transportation: No Lack of Food: Never True Current Housing: I Have Housing Concerned About Future Housing: No Difficulty Paying Gas/Electric Bills: No Difficulty Paying for Meds: No Currently Unemployed: No Education: High School Diploma/GED Difficulty w/ Childcare or Family Care: No Living arrangements: with family Occupation/Education: occupation Gender identity (if verbalized by the patient): Male Spiritual care concerns: No Agree to blood products: Yes Meds Home Medications and Allergies Home Medications Medication Instructions Recorded Confirmed Type aspirin 81 mg tablet,delayed 81 mg PO DAILY 07/22/19 05/13/23 History release dulaglutide 1.5 mg/0.5 mL 1.5 mg subcut WEEKLY 07/22/19 05/13/23 His
[2023-05-21 11:14] VITALS: BP 98/76; PULSE 95; RESP 22; O2SAT 99
[2023-05-21 11:24] VITALS: BP 98/48; PULSE 86; RESP 16; O2SAT 99
[2023-05-21 11:34] VITALS: BP 98/68; PULSE 86; RESP 14; O2SAT 99
== END 2023-05-21 11:40 | disposition home or self-care (01) ==
PROVIDERS: PCP Internal Medicine; Visit Provider Internal Medicine Gastroenterology
PROC: 0DJD8ZZ Inspection of Lower Intestinal Tract, Via Natural or Artificial Opening Endoscopic (ICD-10-PCS; CPT 45378; principal; 2023-05-21 11:00)
DX: Z12.11 Encounter for screening for malignant neoplasm of colon (principal); K57.30 Diverticulosis of large intestine without perforation or abscess without bleeding; K64.8 Other hemorrhoids; Z86.010 Personal history of colon polyps; Z98.0 Intestinal bypass and anastomosis status; Z90.49 Acquired absence of other specified parts of digestive tract; I10 Essential (primary) hypertension; E78.5 Hyperlipidemia, unspecified; E11.9 Type 2 diabetes mellitus without complications; Z85.72 Personal history of non-Hodgkin lymphomas; Z92.21 Personal history of antineoplastic chemotherapy; Z86.73 Personal history of transient ischemic attack (TIA), and cerebral infarction without residual deficits; Z79.82 Long term (current) use of aspirin; Z79.85 Long-term (current) use of injectable non-insulin antidiabetic drugs; Z79.84 Long term (current) use of oral hypoglycemic drugs; Z79.4 Long term (current) use of insulin; Z79.02 Long term (current) use of antithrombotics/antiplatelets; Z87.891 Personal history of nicotine dependence; E66.9 Obesity, unspecified; Z68.33 Body mass index [BMI] 33.0-33.9, adult
CPT/HCPCS: 45378; 82948; J2704; J7120

== ENCOUNTER 2024-11-03 14:37 | Outpatient (CLI) | payer MEDICARE, OTHER, SELFPAY ==
--- NOTE | ~2024-11-03 | XR_ITS ---
EXAMINATION: XR chest 2V 11/03/2024 15:24 INDICATION: Cough PROCEDURE: 2 view chest COMPARISON: 07/22/2019 FINDINGS: The lungs are clear. The cardiomediastinal silhouette is within normal limits. There are no pleural effusions. There is no pneumothorax suspected. IMPRESSION: 1: NO ACUTE CARDIOPULMONARY DISEASE. Reviewed, dictated and finalized at location A.
--- OUTSIDE RECORDS SUMMARY | 2024-11-03 14:45 | XMS_ITS | Encounter Summary ---
Author Organization [facility] Address [address] [place] [address] Phone Care Team Providers Care Radiology Transcriptionist Name Role Phone Rangel Villalta MD Primary Care Provi nazario Carolina Somers MD Unavailable [phone] Jordy Mendenhall NP Unavailable [phone] Bravo Neil Primary Care Provider Mele Sharp MD Unavailable Jordy Mendenhall NP Primary Care Provider + Kirby Owens DO Primary Care Provider [phone] Encounter Details Date Type Department Care Team (Late st Contact Info) Description 05/13/2017 Orders Only [facility] ProviderNaveen MD [address] [place] [address] Social History Tobacco Use Types Packs/Day Years Used Date Smoking Tobacco: Former Smokeless Tobacco: Former Comments:stopped at age 40 Alcohol Use Standard Drinks/Week Comments No 0 (1 standard drink = 0.6 oz pur e alcohol) Sex and Gender Information Value Date Recorded Sex Assigned at Male 09/02/2018 10:38 AM CDT Legal Sex Male 1:06 PM 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 03/07/2023 03/12/2023 06/05/2023 3:[address] documented as of this encounter Care Teams Radiology Transcriptionist Relationship Specialty Start Date End Date Rangel Villalta MD PCP - General 08/31/16 02/01/22 Barvo Neil PA [address] [facility] [place] [address] PCP - General Internal Medicine 02/02/22 05/26/24 Jordy Mendenhall NP [address] [facility] [place] [address] PCP - General Orthopedic Surgery 07/28/24 09/07/24 Kirby Owens DO [address] [facility] [address] [place], [place] [id number] PCP - General Internal Medicine 09/08/24 Carolina Somers MD Medical Oncologist/Embosser Apprentice Medical Oncology 07/27/20 Jordy Mendenhall NP [address] [place] [address] Nurse Practitioner Nurse Practitioner 09/15/20 [place] [id number] [address] Consulting Physician Urology 03/19/23 documented as of this encounter
--- OUTSIDE RECORDS SUMMARY | 2024-11-03 14:45 | XMS_ITS | Encounter Summary ---
Author Organization [facility] Address [address] [place] [address] Phone Care Team Providers Care National Sales Representative Name Role Phone Rangel Villalta MD Primary Care Provi nazario Carolina Somers MD Unavailable [phone] Jordy Mendenhall NP Unavailable [phone] Bravo Neil Primary Care Provider Mele Sharp MD Unavailable [phone] Jordy Mendenhall NP Primary Care Provider + Kirby Owens DO Primary Care Provider [phone] Encounter Details Date Type Department Care Team (Late st Contact Info) Description 10/17/2017 Orders Only [facility] ProviderNaveen MD [address] [place] [address] Social History Tobacco Use Types Packs/Day Years Used Date Smoking Tobacco: Former Smokeless Tobacco: Former Comments:stopped at age 40 Alcohol Use Standard Drinks/Week Comments No 0 (1 standard drink = 0.6 oz pur e alcohol) Sex and Gender Information Value Date Recorded Sex Assigned at Male 09/02/2018 10:38 AM CDT Legal 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 us Historical Provider MD LAB BLOOD ORDERABLES Cher l Result * DISCHARGE LABORATORY CUMULATIVE REPORT (10/17/2017 12:00 AM CDT) Narrative 10/17/2017 12:00 AM CDT Ordered by an unspecified provider. [facility] Provider MD LAB BLOOD ORDERABLES Cher l Result documented [...] documented as of this encounter Care Teams National Sales Representative Relationship Specialty Start Date End Date Rangel Villalta MD PCP - General 08/31/16 02/01/22 Bravo Neil PA [address] [facility] [address] [place] [address] PCP - General Internal Medicine 02/02/22 05/26/24 Jordy Mendenhall NP [address] [facility] [place] [address] PCP - General Orthopedic Surgery 07/28/24 09/07/24 Kirby Owens DO [address] [place] [address] PCP - General Internal Medicine 09/08/24 Carolina Somers MD Medical Oncologist/Drilling Engineer Medical Oncology 07/27/20 Jordy Mendenhall NP [address] [place] [address] [address] [place] [address] Nurse Practitioner Nurse Practitioner 09/15/20 [place] [id number] [address] Consulting Physician Urology 03/19/23 documented as of this encounter
--- OUTSIDE RECORDS SUMMARY | 2024-11-03 14:45 | XMS_ITS | Encounter Summary ---
Author Organization [facility] Address [address] [place] [address] Phone Care Team Providers Care Yard Operator Name Role Phone Rangel Villalta MD Primary Care Provi nazario Carolina Somers MD Unavailable [phone] Jordy Mendenhall NP Unavailable [phone] Bravo Neil Primary Care Provider Mele Sharp MD Unavailable [phone] Jordy Mendenhall NP Primary Care Provider + Kirby Owens DO Primary Care Provider [phone] Encounter Details Date Type Department Care Team (Late st Contact Info) Description 06/17/2017 Orders Only [facility] ProviderNaveen MD [address] [place] [address] Social History Tobacco Use Types Packs/Day Years Used Date Smoking Tobacco: Former Smokeless Tobacco: Former Comments:stopped at age 40 Alcohol Use Standard Drinks/Week Comments No 0 (1 standard drink = 0.6 oz pur e alcohol) Sex and Gender Information Value Date Recorded Sex Assigned at Male 09/02/2018 10:38 AM CDT Legal Sex Male 1: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 us Historical [...] documented as of this encounter Care Teams Yard Operator Relationship Specialty Start Date End Date Rangel Villalta MD PCP - General 08/31/16 02/01/22 Bravo Neil PA [address] [facility] [address] [place] [address] PCP - General Internal Medicine 02/02/22 05/26/24 Jordy Mendenhall NP [address] [facility] [address] [place] [address] PCP - General Orthopedic Surgery 07/28/24 09/07/24 Kirby Owens DO [address] [facility] [address] [place], [place] [id number] PCP - General Internal Medicine 09/08/24 Carolina Somers MD Medical Oncologist/Tubing Machine Tender Medical Oncology 07/27/20 Jordy Mendenhall NP [address] [place] [address] Nurse Practitioner Nurse Practitioner 09/15/20 [place] [id number] [address] Consulting Physician Urology 03/19/23 documented as of this encounter
--- OUTSIDE RECORDS SUMMARY | 2024-11-03 14:46 | XMS_ITS ---
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 Controlled on current lisinopril-HCTZ 20-25mg daily. Will update labs. Verified that he uses [employer]. Aware to check results/results letter in [employer]. Will contact by phone if needed. Assessment & Plan (06/18/2023 12:59 PM PAPER HANDLER): Chronic, well-controlled Continue lisinopril Assessment & Plan (02/25/2023 10:43 AM CDT): Chronic problem. Controlled on current lisinopril-HCTZ 20-25mg daily. No changes. Hyperlipidemia associated with type 2 diabetes andrey marquis 02/25/2023 Assessment & Plan (10/22/2023 1:24 PM CDT): Chronic problem. Controlled on current Atorvastatin 20mg. Last lipid panel: 10/19/22 LDL=50, TG=80. Will update labs. Verified that he uses mychart. Aware to check results/results letter in [employer]. Will contact by phone if needed. Assessment & Plan (02/25/2023 10:43 AM CDT): Chronic problem. Controlled on current Atorvastatin 20mg. Last lipid panel: 10/19/22 LDL=50, TG=80. Erectile dysfunction of organic origin 3 CRF (chronic renal failure) 06/30/2022 Hypertension, essential 10/26/2020 Assessment & Plan (11/01/2022 8:59 AM CDT): Recommend DASH diet, heart healthy lifestyle, exercise. Discussed the risks of hypertension. Assessment & Plan (06/30/2022 11:35 AM PAPER HANDLER): Recommend DASH diet, heart-healthy lifestyle, exercise. Discussed the risks of hypertension. Assessment & Plan (02/01/2022 8:49 PM CDT): Recommend DASH diet, heart-healthy lifestyle, exercise. Discussed the risks of hypertension. Assessment & Plan (11/20/2021 1:32 PM CDT): The bp good and keep mds same and crf at 82 and better despite the creat higher so check yr'lyHypertension, Medical treament revolves around weight control, salt management, and meds when necessary. long as weight loss is necessary and you are able to drop weight we can cont to monitor the blood pressure and not add meds. Once the weight is not changing then it becomes nesessary to add meds to be able to reach the goal bp.To try to minimize the worsening and possible improvement in the renal function there are several things to try to do. The patient should work to get off of (if on) drugs Like Prilosec/prevacid/protonix/nexium,etc. This does not include zantac/pepcid or Tagement. It ws shown that there is an increased risk of kidney dysfunction if you use Prilosec like meds.The patient should also stay off of regular use of scripted arthritis pills like Celebrex.mobic,naprosyn,etc. The over the counter pills of this nature are Advil/motrin/ibuprofen and aleve/naproxen. Regular use of these over the counter pills, Particularly at high doses and not scattered use of the meds also can harm the kidneys. Assessment & Plan (07/19/2021 3:50 PM PAPER HANDLER): bp good an dkeep meds same and crf 75 and check on returnTo try to minimize the worsening and possible improvement in the renal function there are several things to try to do. The patient should work to get off of (if on) drugs Like Prilosec/prevacid/protonix/nexium,etc. This does not include zantac/pepcid or Tagement. It ws shown that there is an increased risk of kidney dysfunction if you use Prilosec like meds.The patient should also stay off of regular use of scripted arthritis pills like Celebrex.mobic,naprosyn,etc. The over the counter pills of this nature are Advil/motrin/ibuprofen and aleve/naproxen. Regular use of these over the counter pills, Particularly at high doses and not scattered use of the meds also can harm the kidneys. Hypertension, Medical treament revolves around weight control, salt management, and meds when necessary. long as weight loss is necessary and you are able to drop weight we can cont to monitor the blood pressure and not add meds. Once the weight is not changing then it becomes nesessary to add meds to be able to reach the goal bp. Assessment & Plan (03/16/2021 2:24 PM CDT): Creat varys some and up and donw some the bp good Seeing endo soon ldl at 55 and g reat keep sameHypertension, Medical treament revolves around weight control, salt management, and meds when necessary. long as weight loss is necessary and you are able to drop weight we can cont to monitor the blood pressure and not add meds. Once the weight is not changing then it becomes nesessary to add meds to be able to reach the goal bp.To try to minimize the worsening and possible improvement in the renal function there are several things to try to do. The patient should work to get off of (if on) drugs Like Prilosec/prevacid/protonix/nexium,etc. This does not include zantac/pepcid or Tagement. It ws shown that there is an increased risk of kidney dysfunction if you use Prilosec like meds.The patient should also stay off of regular use of scripted arthritis pills like Celebrex.mobic,naprosyn,etc. The over the counter pills of this nature are Advil/motrin/ibuprofen and aleve/naproxen. Regular use of these over the counter pills, Particularly at high doses and not scattered use of the meds also can harm the kidneys. Assessment & Plan (10/26/2020 3:10 PM CDT): creast stable over several yrs and gfr today 75 and nl 85. No chans and disucssedppi.nsaids to avoit and recheck in a yr that screen creat suports stablle over several yrsTo try to minimize the worsening and possible improvement in the renal function there are several things to try to do. The patient should work to get off of (if on) drugs Like Prilosec/prevacid/protonix/nexium,etc. This does not include zantac/pepcid or Tagement. It ws shown that there is an increased risk of kidney dysfunction if you use Prilosec like meds.The patient should also stay off of regular use of scripted arthritis pills like Celebrex.mobic,naprosyn,etc. The over the counter pills of this nature are Advil/motrin/ibuprofen and aleve/naproxen. Regular use of these over the counter pills, Particularly at high doses and not scattered use of the meds also can harm the kidneys. Impingement syndrome of left shoulder 08/31/2020 Overview (08/31/2020): Added automatically from request for surgery [id number] Biceps tendonitis on left 08/31/2020 Overview (08/31/2020): Added automatically from request for surgery [id number] Tear of left rotator cuff 08/31/2020 Overview (08/31/2020): Added automatically from request for surgery [id number] Arthritis of left acromioclavicular joint 2020 Overview (08/31/2020): Added automatically from request for surgery [id number] Status post right rotator cuff repair 08/13/2019 History of CVA (cerebrovascular accident) 2019 Assessment & Plan (06/18/2019 3:12 PM PAPER HANDLER): Risk controll Simple chronic bronchitis 02/16/2019 Assessment & Plan (05/24/2020 3:06 PM PAPER HANDLER): Copd stabgle and no t active Assessment & Plan (06/18/2019 3:13 PM PAPER HANDLER): Acute flair and stable and back to nl. Assessment & Plan (02/16/2019 3:03 PM CDT): X smoker with uri and bnow diffuse rattles or copd exacerbatio if not for d.m. Would give steroids but sugar paul jump trial sputum fairly clear for not sure antibiotcs will do it but s tart with and look at inhalers if cont. coughmeds for ,amoxil and amocil tessalon For sough and if not helpful then inhjalers with steroids Allergic rhinitis with postnasal drip 12/29/2018 Assessment & Plan (12/29/2018 3:34 PM CDT): No signs of infection, PE much improved compared to prior exam. Given mucus to be clear, white w/ remaining sx, clinically correlates with allergic postnasal drip and cough. Pt declined wanting any nasal sprays. Cnt. With daily Claritin, prescribed Singulair, encouraged to call in 1 wk w/ update, with persistent sx will consider CXR Biceps tendinitis on right 08/13/2018 Overview (08/13/2018): Added automatically from request for surgery [id number] Arthritis of right acromioclavicular joint 07/11 Overview (07/11/2018): Added automatically from request for surgery [id number] Biceps tendinitis of right upper extremity 07/11 Overview (07/11/2018): Added automatically from request for surgery [id number] Impingement syndrome of right shoulder 9 Assessment & Plan (07/01/2018 5:01 PM PAPER HANDLER): Sugar dropped to 7.2 and cardio and htn cleared for surg for risk associated with age. And underlying chronic diseae but as good a candidtate as paul get and has waited fo rthis . If surg past 30 days will need seen. Pre op labs if done should be screened. Pure hypercholesterolemia 02/25/2018 Assessment & Plan (03/22/2022 1:56 PM CDT): Chronic problem. On statin therapy, no changes. Assessment & Plan (10/17/2021 4:05 PM CDT): Chronic, well controlled Low fat Low cholesterol diet Exercise Continue statin therapy Assessment & Plan (07/19/2021 3:52 PM PAPER HANDLER): ldl at 50 and great and keep hereYour cholesterol in the form of ldl (bad) cholesterol,hdl(good) cholesterol and triglycerides are monitored. The triglycerides respond to reduction/controll of your simple carbs/sugars In such items as sugared soda/sweet tea along with fruit juices(containing natural sugar) even if no added sugar is added. LDL cholesterol is reduced with reducing daily intake of fats and jonn. saturated fats. The monosaturated fats like olive oil are not harmful except in the calories they contained. Whole milk cheese needs to be remembered along with whole milk products And limited. Assessment & Plan (04/18/2021 4:18 PM PAPER HANDLER): Low-cholesterol low-fat diet LDL goal under 70 Continue with Lipitor Assessment & Plan (03/16/2021 2:27 PM CDT): ldl at 55 and stay same on meds and sugar endo fllow up Assessment & Plan (10/26/2020 3:08 PM CDT): ldl 59 and was 62 so good and staying good and cont as doing Your cholesterol in the form of ldl (bad) cholesterol,hdl(good) cholesterol and triglycerides are monitored. The triglycerides respond to reduction/controll of your simple carbs/sugars In such items as sugared soda/sweet tea along with fruit juices(containing natural sugar) even if no added sugar is added. LDL cholesterol is reduced with reducing daily intake of fats and jonn. saturated fats. The monosaturated fats like olive oil are not harmful except in the calories they contained. Whole milk cheese needs to be remembered along with whole milk products And limited. Assessment & Plan (05/24/2020 3:04 PM PAPER HANDLER): ldl at 62 and great and congt meds as onYour cholesterol in the form of ldl (bad) cholesterol,hdl(good) cholesterol and triglycerides are monitored. The triglycerides respond to reduction/controll of your simple carbs/sugars In such items as sugared soda/sweet tea along with fruit juices(containing natural sugar) even if no added sugar is added. LDL cholesterol is reduced with reducing daily intake of fats and jonn. saturated fats. The monosaturated fats like olive oil are not harmful except in the calories they contained. Whole milk cheese needs to be remembered along with whole milk products And limited. Assessment & Plan (01/04/2020 4:14 PM CDT): ldl at 61 and want here or lower so no chanfes in medsYour cholesterol in the form of ldl (bad) cholesterol,hdl(good) cholesterol and triglycerides are monitored. The triglycerides respond to reduction/controll of your simple carbs/sugars In such items as sugared soda/sweet tea along with fruit juices(containing natural sugar) even if no added sugar is added. LDL cholesterol is reduced with reducing daily intake of fats and jonn. saturated fats. The monosaturated fats like olive oil are not harmful except in the calories they contained. Whole milk cheese needs to be remembered along with whole milk products And limited. Assessment & Plan (12/31/2019 3:57 PM CDT): Goal of treatment , LDL cholesterol less than 100 ( less than 70 in patients with history of heart attacks and / or strokes ) NonHDL cholesterol ( total cholesterol minus HDL cholesterol ) goal less than 130 ( less than 100 in patients with history of heart attacks and / or strokes ) Low cholesterol, low fat diet was discussed and advised. Daily exercise On statin therapy with Lipitor Assessment & Plan (08/18/2019 3:12 PM CDT): Goal of treatment , LDL cholesterol less than 100 ( less than 70 in patients with history of heart attacks and / or strokes ) NonHDL cholesterol ( total cholesterol minus HDL cholesterol ) goal less than 130 ( less than 100 in patients with history of heart attacks and / or strokes ) Low cholesterol, low fat diet was discussed and advised. Daily exercise On statin therapy Assessment & Plan (08/12/2019 4:52 PM CDT): ldl ws 57 in [place] since up to 73-80'sYour cholesterol in the form of ldl (bad) cholesterol,hdl(good) cholesterol and triglycerides are monitored. The triglycerides respond to reduction/controll of your simple carbs/sugars In such items as sugared soda/sweet tea along with fruit juices(containing natural sugar) even if no added sugar is added. LDL cholesterol is reduced with reducing daily intake of fats and jonn. saturated fats. The monosaturated fats like olive oil are not harmful except in the calories they contained. Whole milk cheese needs to be remembered along with whole milk products And limited. on 20 lipitor if tolerates will try to go oup to 40 and target 60 or less. If nt tolerated then back off to 20 again. Assessment & Plan (06/18/2019 3:17 PM PAPER HANDLER): ldl at 73 and reversal of arterial disae possible if tighter will take to 40 mg of atoervastin and check on results Assessment & Plan (04/07/2019 2:31 PM PAPER HANDLER): Goal of treatment , LDL cholesterol less than 100 ( less than 70 in patients with history of heart attacks and / or strokes ) NonHDL cholesterol ( total cholesterol minus HDL cholesterol ) goal less than 130 ( less than 100 in patients with history of heart attacks and / or strokes ) Low cholesterol, low fat diet was discussed and advised. Daily exercise On statin therapy Assessment & Plan (02/16/2019 3:04 PM CDT): ldl at 81 and no changes for nowYour cholesterol in the form of ldl (bad) cholesterol,hdl(good) cholesterol and triglycerides are monitored. The triglycerides respond to reduction/controll of your simple carbs/sugars In such items as sugared soda/sweet tea along with fruit juices(containing natural sugar) even if no added sugar is added. LDL cholesterol is reduced with reducing daily intake of fats and jonn. saturated fats. The monosaturated fats like olive oil are not harmful except in the calories they contained. Whole milk cheese needs to be remembered along with whole milk products And limited. Assessment & Plan (11/13/2018 3:29 PM CDT): ldl at 57 and agreat. The last a1c dropped to 6.8 and great And with [id number] to kep and get sugar down or no surg. Your cholesterol in the form of ldl (bad) cholesterol,hdl(good) cholesterol and triglycerides are monitored. The triglycerides respond to reduction/controll of your simple carbs/sugars In such items as sugared soda/sweet tea along with fruit juices(containing natural sugar) even if no added sugar is added. LDL cholesterol is reduced with reducing daily intake of fats and jonn. saturated fats. The monosaturated fats like olive oil are not harmful except in the calories they contained. Whole milk cheese needs to be remembered along with whole milk products And limited. Assessment & Plan (08/11/2018 6:46 PM CDT): The patient was counseled on a heart-healthy, diabetic-friendly diet, as well as life-style modification. Education provided on the diagnosis and risks of the disease. We will continue to monitor routine labs. Additionally, He was counseled on routine diabetic eye exams, foot exams, and other preventive care. Assessment & Plan (07/01/2018 4:59 PM PAPER HANDLER): ldl at 133 and doubled from priro but off meds for a week and this fits. Drug coubled and on 40 as of endo visit. As off meds will drop back to 20 as worked and inlight of muscle issue startr co q 10 100 a day and can consider a drug holiday off for several week if neded. Assessment & Plan (06/24/2018 3:23 PM PAPER HANDLER): Goal of treatment , LDL cholesterol less than 100 ( less than 70 in patients with history of heart attacks and / or strokes ) NonHDL cholesterol ( total cholesterol minus HDL cholesterol ) goal less than 130 ( less than 100 in patients with history of heart attacks and / or strokes ) Low cholesterol, low fat diet was discussed and advised. Daily exercise Increase Lipitor to 40 mg daily Assessment & Plan (03/13/2018 3:53 PM CDT): At goal on current medications. Assessment & Plan (02/25/2018 3:59 PM CDT): ldl at 72 and great. No chanesHypertension, Medical treament revolves around weight control, salt management, and meds when necessary. long as weight loss is necessary and you are able to drop weight we can cont to monitor the blood pressure and not add meds. Once the weight is not changing then it becomes nesessary to add meds to be able to reach the goal bp.Your cholesterol in the form of ldl (bad) cholesterol,hdl(good) cholesterol and triglycerides are monitored. The triglycerides respond to reduction/controll of your simple carbs/sugars In such items as sugared soda/sweet tea along with fruit juices(containing natural sugar) even if no added sugar is added. LDL cholesterol is reduced with reducing daily intake of fats and jonn. saturated fats. The monosaturated fats like olive oil are not harmful except in the calories they contained. Whole milk cheese needs to be remembered along with whole milk products And limited. Rotator cuff disorder, right 02/25/2018 Assessment & Plan (02/25/2018 4:02 PM CDT): Ap[arent upcoming surg for. Warned of high sugar and paul not do electvive surg. Last to high and usually want les then 8.0. Will need clearance butnot worry about until a1c low enough Dupuytren's contracture 10/23/2017 Assessment & Plan (10/23/2017 3:51 PM CDT): Both hands without c./o. For no w Monitor and referral if becomes an issue. PE (physical exam), annual 08/14/2017 Assessment & Plan (07/19/2021 3:55 PM PAPER HANDLER): Well exam colon up to date as is Vision psa. Had flu andcovoid and suggesgted the shinglgeds shot sereis. See's endo for surg and looking to [facility] for erecgtino. uro referral if not efecgtinve Assessment & Plan (05/24/2020 3:09 PM PAPER HANDLER): Well exam had flu shot and tetnus due. Up colon up to date and psa great. Consider the shinglds and is. . Assessment & Plan (01/04/2020 4:18 PM CDT): Check psa Assessment & Plan (02/16/2019 3:08 PM CDT): Check psa Assessment & Plan (11/13/2018 3:29 PM CDT): psa at 1.6 and less then 4 nl. Assessment & Plan (07/01/2018 5:03 PM PAPER HANDLER): Check psa Type 2 diabetes mellitus wit h hyperglycemia, with long-term current use of insulin 04/24/2017 Assessment & Plan (10/22/2023 1:41 PM CDT): Chronic problem. At goal (6.2%); improved from 8.4% 06/18/23. Has retired & no longer eating snacks out of the vending machine. Current medications: Metformin XR 1000 mg twice daily with meals Jardiance 25 mg daily Ozempic 0.25mg weekly Lantus 30 units every evening Will update labs. Verified that he uses mychart. Aware to check results/results letter in [employer]. Will contact by phone if needed. UTD DM eye exam (02/2023 [facility]). Strive for regular exercise (30min most days) and diet (get at least 4-5 servings of fruit and veggies daily, avoid processed foods, increase lean protein intake and decrease carb portions as well as fruit juices, regular soda & desserts). Watch carbs and simple sugars. Check the blood sugar daily. Check the feet daily for skin breakdown and infection. Assessment & Plan (06/18/2023 1:00 PM PAPER HANDLER): Chronic, uncontrolled Importance of diet and exercise was emphasized Will try to switch from Trulicity to Mounjaro, which could have a better effect on glycemic control and also help with weight loss. Continue metformin and Jardiance, as well as Basaglar Assessment & Plan (02/25/2023 11:12 AM CDT): Chronic problem. Near goal on current regimen. A1c currently 7.4%. Current medications: Metformin 1000 mg twice daily with meals Jardiance 25 mg daily Trulicity 1.5mg weekly Basaglar 38 units every evening UTD on labs. DM eye exam completed this month at [facility]. Letter sent to get copy of report. Strive for regular exercise (30min most days) and diet (get at least 4-5 servings of fruit and veggies daily, avoid processed foods, increase lean protein intake and decrease carb portions as well as fruit juices, regular soda & desserts). Watch carbs and simple sugars. Check the blood sugar daily. Check the feet daily for skin breakdown and infection. Assessment & Plan (11/01/2022 8:59 AM CDT): The patient was counseled on a heart-healthy, diabetic-friendly diet, as well as life-style modification. Education provided on the diagnosis and risks of the disease. We will continue to monitor routine labs. Additionally, the patient was counseled on routine diabetic eye exams, foot exams, and other preventive care. Assessment & Plan (10/23/2022 11:05 AM CDT): Chronic problem. Not at goal but A1c improved from 8.4% 07/26/22 to 7.4% 10/19/22. Current medications: Metformin 1000 mg twice daily with meals Glimepiride 4 mg daily Jardiance 25 mg daily Trulicity 1.5mg weekly Basaglar 38 units every evening UTD on labs UTD on DM eye exam. Has appt set up 02/2023 [facility]. Strive for regular exercise (30min most days) and diet (get at least 4-5 servings of fruit and veggies daily, avoid processed foods, increase lean protein intake and decrease carb portions as well as fruit juices, regular soda & desserts). Watch carbs and simple sugars. Check the blood sugar daily. Check the feet daily for skin breakdown and infection. Assessment & Plan (07/26/2022 3:20 PM PAPER HANDLER): Uncontrolled, chronic Diet and exercise Pt not interested in CGM Increase Basaglar, 40 unit shs Restart Trulicity 1.5 mg weekly Assessment & Plan (06/30/2022 11:35 AM PAPER HANDLER): The patient was counseled on a heart-healthy, diabetic-friendly diet, as well as life-style modification. Education provided on the diagnosis and risks of the disease. We will continue to monitor routine labs. Additionally, He was counseled on routine diabetic eye exams, foot exams, and other preventive care. Assessment & Plan (03/22/2022 1:57 PM CDT): Chronic problem, not at goal with fasting hypoglycemia and pC hyperglycemia. Lower Basaglar to 35 units and increase glimepiride to 4 mg qAM. Let us know if any persistent hypoglycemia. Try to check aD CBGs a couple times a week. Assessment & Plan (02/01/2022 8:50 PM CDT): The patient was counseled on a heart-healthy, diabetic-friendly diet, as well as life-style modification. Education provided on the diagnosis and risks of the disease. We will continue to monitor routine labs. Additionally, He was counseled on routine diabetic eye exams, foot exams, and other preventive care. Assessment & Plan (10/17/2021 4:04 PM CDT): Hba1c was Lab Results Component Value Date HGBA1C 7.1 10/17/2021 today, indicating adequate DM control but with hypo's Goal Hba1c and blood glucose explained Diet and exercise were advised Prevention and treatment of hyypoglcyemia were discussed with the patient Blood glucose monitoring : 1-2 x day Adjustment to medications: Lower glimepiride to 2 mg daily Increase Trulicity to 4.5 mg week Assessment & Plan (04/18/2021 4:17 PM PAPER HANDLER): Hba1c was Lab Results Component Value Date HGBA1C 7.5 04/18/2021 today, indicating suboptimal DM control Goal Hba1c and blood glucose explained Diet and exercise , discussed Prevention and treatment of hyypoglcyemia discussed. Blood glucose monitoring : 2 x day Adjustment to oral medications: Continue with Jardiance, metformin and glimepiride 4 mg daily Continue Trulicity 3 mg weekly Continue also with Basaglar 30 units daily Assessment & Plan (10/04/2020 5:09 PM CDT): Hba1c was Lab Results Component Value Date HGBA1C 6.1 10/04/2020 today, indicating adequate DM control with hypoglycemia Goals blood sugars of 120-160 and Hba1c under 7 % was explained. 1800 calorie, consistent carb diet recommended, no more than 3-45 grams of carbs per meal, avoiding concentrated sweet drinks and rapid absorption carbs. 25-45 min daily aerobic and resistance exercise recommended Prevention and treatment of hyypoglcyemia discussed. Blood glucose monitoring with fingers sticks. Lower basaglar insulin to 30units Assessment & Plan (07/05/2020 4:06 PM PAPER HANDLER): Hba1c was Lab Results Component Value Date HGBA1C 9.0 (A) 07/05/2020 today, indicating poor DM control Goal blood sugars in the 120-150 range , with Hb1c under 7.0 % was explained 1800 calorie, consistent carb diet recommended. No more than 30-45 grams of carbs per meal recommended, as well as avoiding high concentrated sweet drinks . 25-45 min daily exercise, combining both aerobic and resistance exercise recommended. The need to monitor blood glucose was discussed. Prevention and treatment of hyypoglcyemia discussed. Increase the Basaglar to 40 units daily Increase Trulicity to 3 mg daily Increase Glimepiride to 4 mg daily Assessment & Plan (12/31/2019 3:57 PM CDT): Hba1c was Lab Results Component Value Date HGBA1C 6.9 (H) 12/23/2019 today, indicating adequate DM control 1800 calorie, consistent carb diet recommended, no more than 3-45 grams of carbs per meal, avoiding concentrated sweet drinks and rapid absorption carbs. 25-45 min daily aerobic and resistance exercise recommended Prevention and treatment of hyypoglcyemia discussed. Blood glucose monitoring with fingers sticks.... Medications: lower Basaglar, 25 units daily Assessment & Plan (08/18/2019 3:11 PM CDT): Hba1c was Lab Results Component Value Date HGBA1C 7.5 08/18/2019 today, indicating suboptimal DM control 1800 calorie, consistent carb diet recommended. No more than 30-45 grams of carbs per meal recommended, as well as avoiding high concentrated sweet drinks . 25-45 min daily exercise, combining both aerobic and resistance exercise recommended. The need to monitor blood glucose before meals and bedtime was discussed. Prevention and treatment of hyypoglcyemia discussed. Insulin dose: Lower Basaglar by 5 units Assessment & Plan (06/18/2019 3:18 PM PAPER HANDLER): See's endo and needs to tighten Assessment & Plan (04/07/2019 2:31 PM PAPER HANDLER): Hba1c was Lab Results Component Value Date HGBA1C 8.4 04/07/2019 today, indicating inadequate DM control 1800 calorie, consistent carb diet recommended, no more than 3-45 grams of carbs per meal, avoiding concentrated sweet drinks and rapid absorption carbs. 25-45 min daily aerobic and resistance exercise recommended Prevention and treatment of hyypoglcyemia discussed. Blood glucose monitoring with fingers sticks twice a day Medications: Added glimepiride 2 mg daily Assessment & Plan (12/30/2018 3:02 PM CDT): Your Hba1c today was: Lab Results Component Value Date HGBA1C 8.9% 12/30/2018 meaning a 3 month average sugar of : 210 Your goal hba1c is under 7.0 to prevent nuclear equipment operator diabetes complications ( eye , kidney and nerve damage ) . Your goal sugars are in the 90-130 range Exercise recommendations: It is recommended that you do daily aerobic ( walking, riding a bike, swimming ) and resistance exercises ( light weight lifting, resistance band stretching ) for at least 30 minutes , most days of the week. If you can not walk, chair exercises for 10-15 min a day would help tremendously. As little as 15-20 minutes exercise , in one or two sessions a day, is still very helpful to improve your diabetes control . Diet recommendations: Eat small portion meals, trying not to consume more than 1800 calories a day . Try to eat not more than than 2 servings of carbs ( starches ) wiith your meals. Avoid soft drinks, including regular sodas , fruit juices and sweetened tea. Drink water instead. Eat plenty of green and leafy vegetables, including salads. Medications: Take your medications regularly. Setting phone alarms can help . Keep your medication on the kitchen dinner table, by the bedside table or by the sink where they are visible to you. If you are taking insulin : the insulin that you are currently using does not need to be refrigerated. Keep it where you can see it . Monitor your sugar levels with finger sticks regularly and keep a log sheet or book. Bring your sugar meter and /or a log book or log sheet to every office visit. NO CHIP !! Smaller portions !! Monitor glucoses more frequently Will send prescription for Ekta NAVAS Assessment & Plan (07/01/2018 4:58 PM PAPER HANDLER): a1c droopped to 7.2 at endo and cont contrll. Assessment & Plan (06/24/2018 3:23 PM PAPER HANDLER): Hba1c was Lab Results Component Value Date HGBA1C 7.2 06/24/2018 today, indicating adequate DM control 1800 calorie, consistent carb diet recommended 25-45 min daily aerobic and resistance exercise recommended Prevention and treatment of hyypoglcyemia discussed. Blood glucose monitoring with fingers sticks 1-2 x day . Oral medications: continue current oral and insulin Assessment & Plan (03/13/2018 3:55 PM CDT): A1c continues to improve at 8.0 but FBG are under goal. Gently decrease Basaglar to 38. Advised to focus closely on diet. Can try gentle CF 1: 50> 140-300. Advised to also do ac/pc BG check 3 times per week. Will recheck A1c in 4-6 weeks to see if surgery can be scheduled before year end. Assessment & Plan (12/05/2017 3:44 PM CDT): A1c 8.5, improved 1% with reported BG mostly at goal except with dietary indiscretions. BG goals reviewed. Advised checking ac and 2 hour pc BG twice a week. No change to medication today. If no improvement in A1c at next OV will consider change as indicated. Assessment & Plan (10/23/2017 3:50 PM CDT): ldl well cotynroleda nd no c hangesYour cholesterol in the form of ldl (bad) cholesterol,hdl(good) cholesterol and triglycerides are monitored. The triglycerides respond to reduction/controll of your simple carbs/sugars In such items as sugared soda/sweet tea along with fruit juices(containing natural sugar) even if no added sugar is added. LDL cholesterol is reduced with reducing daily intake of fats and jonn. saturated fats. The monosaturated fats like olive oil are not harmful except in the calories they contained. Whole milk cheese needs to be remembered along with whole milk products And limited. Assessment & Plan (08/09/2017 10:47 AM PAPER HANDLER): The patient was counseled on a heart-healthy, diabetic-friendly diet, as well as life-style modification. Education provided on the diagnosis and risks of the disease. We will continue to monitor routine labs. Additionally, the patient was counseled on routine diabetic eye exams, foot exams, and other preventive care. On metformin , trulicity, Invokana. Continue monitoring blood glucose Assessment & Plan (08/08/2017 3:39 PM PAPER HANDLER): Your Hba1c today was: Lab Results Component Value Date HGBA1C 9.6 08/08/2017 meaning a 3 month average sugar of : 234 Your goal hba1c is under 7.0 to prevent nuclear equipment operator diabetes complications ( eye , kidney and nerve damage ) . Your goal sugars are in the 90-130 range Daily aerobic ( walking, riding a bike, swimming ) and resistance exercises ( light weight lifting, resistance band stretching ) for at least 30 minutes is recommended If you can not walk, chair exercises is very acceptable. As little as 15-20 minutes exercise , in one or two sessions a day, is still very helpful and will help to improve your diabetes control . Eat small portion meals, no more than 1800 calories Diet Try to eat not more than than 2-3 servings of carbs ( starches ) wiith your meals. Avoid soft drinks, including regular sodas , fruit juices and sweetened tea. Drink water instead. Eat plenty of green and leafy vegetables, including salads. Take your medications regularly,including your insulin injections. Monitor your sugar levels with finger sticks regularly and keep a log sheet or book. Bring your sugar meter and /or a log book or log sheet to every office visit. Increase Basaglar to 35 units Increase Invokana to 300 mg daily Assessment & Plan (05/07/2017 2:22 PM PAPER HANDLER): Hba1c was 6.0 today, indicating much better DM control, risk of hypoglycemia 1800 calorie, consistent carb diet recommended 30 min daily aerobic and resistance exercise recommended Prevention and treatment of hyypoglcyemia discussed. Blood glucose monitoring with fingers sticks 1-2 x day . Foot care was discussed. Lower Lantus to 30 units. Assessment & Plan (04/24/2017 3:57 PM PAPER HANDLER): ldl at 49 and great and no changesYour cholesterol in the form of ldl (bad) cholesterol,hdl(good) cholesterol and triglycerides are monitored. The triglycerides respond to reduction/controll of your simple carbs/sugars In such items as sugared soda/sweet tea along with fruit juices(containing natural sugar) even if no added sugar is added. LDL cholesterol is reduced with reducing daily intake of fats and jonn. saturated fats. The monosaturated fats like olive oil are not harmful except in the calories they contained. Whole milk cheese needs to be remembered along with whole milk products And limited. S/P colon resection 11/12/2016 Assessment & Plan (11/12/2016 10:52 AM CDT): Stable postop condition. Bowels moving regularly with p.r.n. stool softeners. Patient is tolerating a regular diet. Patient to follow up with surgeon, Dr. Kent. His appointment is Monday November 14, 2016. Janina to be removed at surgeon's follow-up visit. 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 Past Treatment and Therapy Plans Lifetime Dose Tracking * Chemical Lifetime Dose Automatic Entry Manual Entr y Fluoro Time 0.1 minutes 0.1 minutes 0 minutes DLP 2,983 mGycm 2,983 mGycm 0 mGycm Resolved Problems Problem Noted Date Diagnosed Date Resolved Date Hypertension associated with type 2 diabetes mellitus 10/23/2022 11/01/2022 Assessment & Plan (10/23/2022 10:53 AM CDT): Chronic problem. Controlled on current lisinopril/hctz 20/25mg daily. No changes at this time. Hypertension associated with type 2 diabetes mellitus 02/07/2022 06/29/2022 Assessment & Plan (07/26/2022 3:21 PM PAPER HANDLER): Chronic, well controlled Continue current medications, including Lisinopril Assessment & Plan (03/22/2022 1:56 PM CDT): Controlled on current medications, no changes. Controlled type 2 diabetes m ellitus with stage 2 chronic kidney disease, with long-term current use of insulin ([facility]) 10/26/2020 06/30/2022 Assessment & Plan (11/20/2021 1:34 PM CDT): a1c at 7.0 and and stable and see's and crf stable and moildTo try to minimize the worsening and possible improvement in the renal function there are several things to try to do. The patient should work to get off of (if on) drugs Like Prilosec/prevacid/protonix/nexium,etc. This does not include zantac/pepcid or Tagement. It ws shown that there is an increased risk of kidney dysfunction if you use Prilosec like meds.The patient should also stay off of regular use of scripted arthritis pills like Celebrex.mobic,naprosyn,etc. The over the counter pills of this nature are Advil/motrin/ibuprofen and aleve/naproxen. Regular use of these over the counter pills, Particularly at high doses and not scattered use of the meds also can harm the kidneys. Diabetes management or controll revolves around several core concepts : weight controll,controlling the intake of rapidly absorbed sugars(read simple carbs that get rapidly absorbed such as sweetened tea,sugared soda,fruit juices or portions of fruit over 1/2 cup at a time) as well at the need to increase the sugar burned up through an n increase in your baseline activity.Breads,potatotes(white,yellow,sweet are all the same),most cereals and noodles all breakdown to sugar rapidly. This rapid breakdown or absorption challenges the body into handling this surge of sugar. The more these factors are controlled the more the sugar will be controlled. Assessment & Plan (07/19/2021 3:51 PM PAPER HANDLER): diaberrters per endo and recheck 24 hr luis manuelien jeni cl as last 75 Assessment & Plan (03/16/2021 2:26 PM CDT): crf and stable screens and 24 hr Urine in next summer a1c with endo Hypertension, Medical treament revolves around weight control, salt management, and meds when necessary. long as weight loss is necessary and you are able to drop weight we can cont to monitor the blood pressure and not add meds. Once the weight is not changing then it becomes nesessary to add meds to be able to reach the goal bp.To try to minimize the worsening and possible improvement in the renal function there are several things to try to do. The patient should work to get off of (if on) drugs Like Prilosec/prevacid/protonix/nexium,etc. This does not include zantac/pepcid or Tagement. It ws shown that there is an increased risk of kidney dysfunction if you use Prilosec like meds.The patient should also stay off of regular use of scripted arthritis pills like Celebrex.mobic,naprosyn,etc. The over the counter pills of this nature are Advil/motrin/ibuprofen and aleve/naproxen. Regular use of these over the counter pills, Particularly at high doses and not scattered use of the meds also can harm the kidneys. Assessment & Plan (10/26/2020 3:02 PM CDT): gfr at 76 and Discussed stayng clear of meds diabetes managed by dendo To try to minimize the worsening and possible improvement in the renal function there are several things to try to do. The patient should work to get off of (if on) drugs Like Prilosec/prevacid/protonix/nexium,etc. This does not include zantac/pepcid or Tagement. It ws shown that there is an increased risk of kidney dysfunction if you use Prilosec like meds.The patient should also stay off of regular use of scripted arthritis pills like Celebrex.mobic,naprosyn,etc. The over the counter pills of this nature are Advil/motrin/ibuprofen and aleve/naproxen. Regular use of these over the counter pills, Particularly at high doses and not scattered use of the meds also can harm the kidneys. BMI 29.0-29.9,adult 10/26/2020 03/16/20 21 Class 1 obesity with body ma ss index (BMI) of 32.0 to 32.9 in adult 05/24/2020 06/29/2022 Assessment & Plan (11/20/2021 1:35 PM CDT): The wt needs to cont to drop Assessment & Plan (07/19/2021 3:55 PM PAPER HANDLER): Work to controll Assessment & Plan (03/16/2021 5:23 PM CDT): Wt controll BMI 30.0-30.9,adult 01/04/2020 02/15/20 21 Assessment & Plan (05/24/2020 3:05 PM PAPER HANDLER): Lost some wt on p urpose and work to keep off Assessment & Plan (01/04/2020 4:14 PM CDT): Work to kep wt fdown Acute URI 12/15/2018 12/15/2018 Assessment & Plan (12/15/2018 11:46 AM CDT): Recommending Augmentin therapy twice daily times 10 days along with OTC probiotics or Serbian yogurt to assist with GI upset associated medication use. Supportive measures to implement OTC were also advised, sparing use of Tessalon Perles prescribed for nocturnal cough, declined ProAir today to assist with bronchospasm. S/E of meds discussed and indications to follow back up in clinic advised Acute shoulder bursitis, right 12/13/2017 02/25/2018 Assessment & Plan (12/13/2017 1:27 PM CDT): Clinically appears as though it is acute bursitis. Recommended corticosteroid therapy in tapering fashion heat and stretching close monitoring of glucose levels he tends to run in the 100-110 fasting however we will keep in mind if there is any hyperglycemia likely more due to steroids. Follow up in 2 weeks there is no improvement symptoms will consider MRI at that time Abnormal serum creatinine level 10/23/2017 02/25/2018 Assessment & Plan (10/23/2017 3:49 PM CDT): Prior gfr measure of 93 and at time extamates 56. Same now and as long as stays here would not repeat 24 hr urein. 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 His blood counts have improved since discharge from hospital. Abnormal liver function tests 10/17/2013 05/24/2020 Overview (09/07/2016): ABN LIVER FUNCTION STUDY Cerebral infarction 10/17/2013 06/18/19 20 Overview (09/07/2016): CVA (cerebral infarction) Hypertension associated with diabetes 10/17/2013 02/01/2022 Overview (09/07/2016): BENIGN HYPERTENSION Assessment & Plan (11/20/2021 1:36 PM CDT): The bp good and keep meds same Hypertension, Medical treament revolves around weight control, salt management, and meds when necessary. long as weight loss is necessary and you are able to drop weight we can cont to monitor the blood pressure and not add meds. Once the weight is not changing then it becomes nesessary to add meds to be able to reach the goal bp. Assessment & Plan (10/17/2021 4:05 PM CDT): Chronic, well controlled Continue current meds Check MA Assessment & Plan (07/19/2021 3:51 PM PAPER HANDLER): bp good and Keep meds same Hypertension, Medical treament revolves around weight control, salt management, and meds when necessary. long as weight loss is necessary and you are able to drop weight we can cont to monitor the blood pressure and not add meds. Once the weight is not changing then it becomes nesessary to add meds to be able to reach the goal bp. Assessment & Plan (04/18/2021 4:16 PM PAPER HANDLER): Well controlled Continue lisinopril hydrochlorothiazide Low-salt diet and exercise recommended Assessment & Plan (03/16/2021 2:26 PM CDT): The bp good and a1c For endo Eye up o dateHypertension, Medical treament revolves around weight control, salt management, and meds when necessary. long as weight loss is necessary and you are able to drop weight we can cont to monitor the blood pressure and not add meds. Once the weight is not changing then it becomes nesessary to add meds to be able to reach the goal bp. Assessment & Plan (10/04/2020 5:10 PM CDT): Goal blood pressure is less than 140/85 Low salt diet was discussed andd recommended The importance of daily aerobic exercise was also emphasized. Continue current meds, including CHARLOTTE-I or ARB, e.g. Lisinopril Check microalbumin Assessment & Plan (07/05/2020 4:06 PM PAPER HANDLER): Goal blood pressure is less than 140/85 Low salt diet was discussed andd recommended The importance of daily aerobic exercise was also emphasized. Continue current meds, including CHARLOTTE-I or ARB, e.g. Lisinopril Check microalbumin Assessment & Plan (05/24/2020 3:04 PM PAPER HANDLER): The bp good and no chagfss inmweds And see's endo for surgHypertension, Medical treament revolves around weight control, salt management, and meds when necessary. long as weight loss is necessary and you are able to drop weight we can cont to monitor the blood pressure and not add meds. Once the weight is not changing then it becomes nesessary to add meds to be able to reach the goal bp.Diabetes management or controll revolves around several core concepts : weight controll,controlling the intake of rapidly absorbed sugars(read simple carbs that get rapidly absorbed such as sweetened tea,sugared soda,fruit juices or portions of fruit over 1/2 cup at a time) as well at the need to increase the sugar burned up through an n increase in your baseline activity.Breads,potatotes(white,yellow,sweet are all the same),most cereals and noodles all breakdown to sugar rapidly. This rapid breakdown or absorption challenges the body into handling this surge of sugar. The more these factors are controlled the more the sugar will be controlled. Assessment & Plan (01/04/2020 4:13 PM CDT): a1c at 6.9 and doing well for him and the bp lowre and wilkl stoptohe Lisinopril 10 and cont htre 20/25 and watch bp if gains wt paul go back up Hypertension, Medical treament revolves around weight control, salt management, and meds when necessary. long as weight loss is necessary and you are able to drop weight we can cont to monitor the blood pressure and not add meds. Once the weight is not changing then it becomes nesessary to add meds to be able to reach the goal bp.Diabetes management or controll revolves around several core concepts : weight controll,controlling the intake of rapidly absorbed sugars(read simple carbs that get rapidly absorbed such as sweetened tea,sugared soda,fruit juices or portions of fruit over 1/2 cup at a time) as well at the need to increase the sugar burned up through an n increase in your baseline activity.Breads,potatotes(white,yellow,sweet are all the same),most cereals and noodles all breakdown to sugar rapidly. This rapid breakdown or absorption challenges the body into handling this surge of sugar. The more these factors are controlled the more the sugar will be controlled. Assessment & Plan (12/31/2019 3:58 PM CDT): Goal blood pressure is less than 140/85 Low salt diet was discussed andd recommended The importance of daily aerobic exercise was also emphasized. Continue current meds, including CHARLOTTE-I or ARB, e.g. Lisinopril Assessment & Plan (08/12/2019 4:50 PM CDT): The bp good and no chaes In meds seeing endo I a week and f.u on d.m., Your cholesterol in the form of ldl (bad) cholesterol,hdl(good) cholesterol and triglycerides are monitored. The triglycerides respond to reduction/controll of your simple carbs/sugars In such items as sugared soda/sweet tea along with fruit juices(containing natural sugar) even if no added sugar is added. LDL cholesterol is reduced with reducing daily intake of fats and jonn. saturated fats. The monosaturated fats like olive oil are not harmful except in the calories they contained. Whole milk cheese needs to be remembered along with whole milk products And limited. Assessment & Plan (06/18/2019 3:14 PM PAPER HANDLER): Diabetes management or controll revolves around several core concepts : weight controll,controlling the intake of rapidly absorbed sugars(read simple carbs that get rapidly absorbed such as sweetened tea,sugared soda,fruit juices or portions of fruit over 1/2 cup at a time) as well at the need to increase the sugar burned up through an n increase in your baseline activity.Breads,potatotes(white,yellow,sweet are all the same),most cereals and noodles all breakdown to sugar rapidly. This rapid breakdown or absorption challenges the body into handling this surge of sugar. The more these factors are controlled the more the sugar will be controlled.The bp good and nochages and a1c 8.2 reported urine protein nlHypertension, Medical treament revolves around weight control, salt management, and meds when necessary. long as weight loss is necessary and you are able to drop weight we can cont to monitor the blood pressure and not add meds. Once the weight is not changing then it becomes nesessary to add meds to be able to reach the goal bp. Assessment & Plan (04/07/2019 2:29 PM PAPER HANDLER): Goal blood pressure is less than 140/85 Low salt diet recommended Daily aerobic exercise Continue current meds, including CHARLOTTE-I or ARB Assessment & Plan (02/16/2019 3:03 PM CDT): bp good and no changesHypertension, Medical treament revolves around weight control, salt management, and meds when necessary. long as weight loss is necessary and you are able to drop weight we can cont to monitor the blood pressure and not add meds. Once the weight is not changing then it becomes nesessary to add meds to be able to reach the goal bp. Assessment & Plan (12/30/2018 3:01 PM CDT): Goal blood pressure is less than 140/85 Low salt diet recommended Daily aerobic exercise Continue current meds, including CHARLOTTE-I or ARB Assessment & Plan (11/13/2018 3:30 PM CDT): The bp great and no chages in medsHypertension, Medical treament revolves around weight control, salt management, and meds when necessary. long as weight loss is necessary and you are able to drop weight we can cont to monitor the blood pressure and not add meds. Once the weight is not changing then it becomes nesessary to add meds to be able to reach the goal bp. Assessment & Plan (08/11/2018 6:47 PM CDT): Recommend DASH diet, heart-healthy lifestyle, exercise. Discussed the risks of hypertension. Assessment & Plan (07/01/2018 4:57 PM PAPER HANDLER): a1c [facility]. bp good and no changeasYour cholesterol in the form of ldl (bad) cholesterol,hdl(good) cholesterol and triglycerides are monitored. The triglycerides respond to reduction/controll of your simple carbs/sugars In such items as sugared soda/sweet tea along with fruit juices(containing natural sugar) even if no added sugar is added. LDL cholesterol is reduced with reducing daily intake of fats and jonn. saturated fats. The monosaturated fats like olive oil are not harmful except in the calories they contained. Whole milk cheese needs to be remembered along with whole milk products And limited. Assessment & Plan (06/24/2018 3:23 PM PAPER HANDLER): Goal blood pressure is less than 140/85 Low salt diet recommended Daily aerobic exercise Continue current meds, including CHARLOTTE-I or ARB Assessment & Plan (03/13/2018 3:52 PM CDT): Controlled on current medications. Assessment & Plan (02/25/2018 3:58 PM CDT): The bp good and no chagse. Seeing endo for dm. No reactoinHypertension, Medical treament revolves around weight control, salt management, and meds when necessary. long as weight loss is necessary and you are able to drop weight we can cont to monitor the blood pressure and not add meds. Once the weight is not changing then it becomes nesessary to add meds to be able to reach the goal bp. Assessment & Plan (12/05/2017 3:42 PM CDT): Controlled on current medications. Assessment & Plan (10/23/2017 3:50 PM CDT): The bp goreat abnd no changes. Fasting sugar high but seeing endo for this. No med changes for bpHypertension, Medical treament revolves around weight control, salt management, and meds when necessary. long as weight loss is necessary and you are able to drop weight we can cont to monitor the blood pressure and not add meds. Once the weight is not changing then it becomes nesessary to add meds to be able to reach the goal bp. Assessment & Plan (08/09/2017 10:47 AM PAPER HANDLER): Blood pressure currently stable Recommend DASH diet, heart healthy lifestyle, exercise. Discussed the risks of hypertension. Assessment & Plan (08/08/2017 3:27 PM PAPER HANDLER): Goal blood pressure is less than 140/85 Low salt diet recommended Daily aerobic exercise Continue current meds, including CHARLOTTE-I or ARB Check microalbumin Assessment & Plan (05/07/2017 2:14 PM PAPER HANDLER): Goal blood pressure is less than 140/85 Low salt diet recommended Daily aerobic exercise Continue current meds, including CHARLOTTE-I or ARB, e.g. Lisinopril Assessment & Plan (04/24/2017 3:57 PM PAPER HANDLER): bp high . Change to 20.25 and se over several we eks to workHypertension, Medical treament revolves around weight control, salt management, and meds when necessary. long as weight loss is necessary and you are able to drop weight we can cont to monitor the blood pressure and not add meds. Once the weight is not changing then it becomes nesessary to add meds to be able to reach the goal bp.seeing endocrine for sugar Assessment & Plan (01/17/2017 3:34 PM CDT): bp good and off benicar for nowHypertension, Medical treament revolves around weight control, salt management, and meds when necessary. long as weight loss is necessary and you are able to drop weight we can cont to monitor the blood pressure and not add meds. Once the weight is not changing then it becomes nesessary to add meds to be able to reach the goal bp. Assessment & Plan (01/01/2017 3:39 PM CDT): Goal blood pressure is less than 140/85 Low salt diet recommended Daily aerobic exercise Restart Benicar Type 2 diabetes mellitus with hyperglycemia 08/25/2013 04/24/2017 Overview (09/07/2016): DMII WO CMP UNCNTRLD Assessment & Plan (01/01/2017 3:33 PM CDT): Hba1c was 7.3 today, indicating adequate DM control 1800 calorie, consistent carb diet recommended 30 min daily aerobic and resistance exercise recommended Foot care discused. Prevention and treatment of hyypoglcyemia discussed. Assessment & Plan (11/13/2016 11:12 AM CDT): Your last hba1c was 6 , indicating adequate DM control Continue Current medications 1500 calorie, consistent carb diet recommended 30 min daily aerobic and resistance exercise . Foot care discussed. Prevention and treatment of hypoglycemia was discussed. Assessment & Plan (11/12/2016 10:55 AM CDT): Patient had been experiencing hypoglycemia prior to hospitalization. Status post colon resection he has been able to return to a regular diet. He is tolerating this very well. In turn, his blood glucose readings have continue to elevate. He has been adjusting his insulin needs to per light industrial supervisor recommendation. He is currently taking 30 units of Lantus daily. I will be seeing his light industrial supervisor within a week. Hypertension 04/21/2013 01/17/2017 Overview (09/07/2016): HYPERTENSION NOS Assessment & Plan (11/12/2016 10:51 AM CDT): Patient blood pressure has been very low post-operatively. He lost a great deal of week preoperatively. He took a dose of Benicar this morning and blood pressure is low in the office today. He denies any syncopal events but notes he has been a bit lightheaded today. Her going to discontinue the Benicar. He is going to closely monitor his blood pressure outside of the office off on blood pressure medications. And he will contact our office with elevated readings. He verbalized understanding and was in agreement with the plan of care. Hyperlipidemia 09/23/2012 02/25/2018 Overview (09/07/2016): HYPERLIPIDEMIA NEC/NOS Assessment & Plan (12/05/2017 3:42 PM CDT): At goal on current medications. Assessment & Plan (08/08/2017 3:26 PM PAPER HANDLER): Goal of treatment , LDL cholesterol less than 100 ( less than 70 in patients with history of heart attacks and / or strokes ) NonHDL cholesterol ( total cholesterol minus HDL cholesterol ) goal less than 130 ( less than 100 in patients with history of heart attacks and / or strokes ) Low cholesterol, low fat diet was discussed and advised. Daily exercise On statin therapy Assessment & Plan (05/07/2017 2:15 PM PAPER HANDLER): Goal of treatment , LDL cholesterol less than 100 ( less than 70 in patients with history of heart attacks and / or strokes ) NonHDL cholesterol goal less than 130 ( less than 100 in patients with history of heart attacks and / or strokes ) Continue statin therapy with Lipitor Assessment & Plan (01/17/2017 3:34 PM CDT): ldl at 39 and with 40 mg will drop to 20 mg for now and cut current pill in 1/2Your cholesterol in the form of ldl (bad) cholesterol,hdl(good) cholesterol and triglycerides are monitored. The triglycerides respond to reduction/controll of your simple carbs/sugars In such items as sugared soda/sweet tea along with fruit juices(containing natural sugar) even if no added sugar is added. LDL cholesterol is reduced with reducing daily intake of fats and jonn. saturated fats. The monosaturated fats like olive oil are not harmful except in the calories they contained. Whole milk cheese needs to be remembered along with whole milk products And limited. Assessment & Plan (01/01/2017 3:42 PM CDT): Goal of treatment , LDL cholesterol less than 100 ( less than 70 in patients with history of heart attacks and / or strokes ) NonHDL cholesterol goal less than 130 / 100 Lipids at goal. Continue statin therapy Low cholesterol diet, exercise advised.
--- OUTSIDE RECORDS SUMMARY | 2024-11-03 14:46 | XMS_ITS | Referral Summary ---
Author Organization [facility] Address [address] [place] [address] Care Team Providers Care Chiseler Head Name Role Phone Carolina Somers MD Unavailable Jordy Mendenhall NP Unavailable Mele Sharp MD Unavailable Kirby Owens DO Primary Care Provider [phone] Encounters Date Type Department Care Team Description 10/09/2024 Telephone [facility] [address] [place] [address] [phone] Michelle Donaldson LPN NON URGENT MEDICAL QUESTION 09/11/[address] Medical Office Building [address] [place] [phone] Christina Esqueda RMA 09/10/2024 Orders Only [facility] [address] [place] [address] Medical Office Building [address] [place] [phone] Jesenia Hancock MD Dupuytren's contracture (Primary Dx) 09/10/2024 1:00 PM CDT Office Visit [facility] [address] [place] [address] Medical Office Building [address] [place] [phone] Aurora Caldwell PA Dupuytren's contracture 09/08/2024 10:50 AM CDT Lab [address] [phone] 09/08/2024 9:20 AM CDT Office Visit [facility]) - [facility] [address] [place] [address] [address] Medical Office Building [address] [place] [phone] Mele Sharp MD Benign prostatic hyperplasia with weak urinary stream (Primary Dx); S/P insertion of penile implant; Prostate cancer screening 08/27/2024 Results Follow-Up [facility] [address] [place] [address] Bharti Bass MD Comprehensive metabolic panel from Last 3 Months Allergies No known active allergies Medications aspirin (BABY ASPIRIN) 81 mg chewable tablet Take according to amxc-ipl-mqekutz package directions 0 0 10/05/19 10 Active ferrous sulfate 325 mg (65 mg of elemental iron) tabletIndicatio ns:Iron Deficiency Anemia Take 1 tablet (325 mg total) by mouth daily with breakfast Active multivitamin capsule Take 1 capsule by mouth daily Active blood glucose diagnostic stripIndication s:Type 2 diabetes mellitus with hyperglycemia, with long-term current use of insulin ([facility]) Use to test 2 times daily 200 strip 11 04/30/20 23 Active triamcinolone (KENALOG) 0.1 % cream Apply 1 g topically 2 (two) times a day 03/04/20 23 Active pen needle, diabetic 31 gauge x 5/16 needle Use subcutaneously once daily to inject lantus 100 each 3 05/02/20 23 Active clopidogreL (PLAVIX) 75 mg tablet Take 1 tablet by mouth once daily 90 tablet 02/26/20 24 Active semaglutide (OZEMPIC) 1 mg/dose (4 mg/3 mL) pen injector injection Inject 1 mg under the skin every 7 days 3 mL 6 07/29/19 25 Active metFORMIN XR (GLUCOPHAGE XR) 500 mg 24 hr tabletIndicatio ns:Type 2 diabetes mellitus with hyperglycemia, with long-term current use of insulin (HCC) Take 2 tablets (1,000 mg total) by mouth 2 (two) times a day before breakfast and dinner 360 tablet 3 07/29/19 25 Active insulin glargine (LANTUS) 100 unit/mL (3 mL) pen for injection Inject 30 Units under the skin nightly 15 mL 6 07/29/19 Active atorvastatin (LIPITOR) 20 mg tablet Take 1 tablet (20 mg total) by mouth daily 90 tablet 3 07/29/19 Active lisinopril-hydr oCHLOROthiazide (ZESTORETIC) 20-25 mg per tablet Take 1 tablet by mouth daily 90 tablet 3 07/29/19 Active empagliflozin (Jardiance) 25 mg tablet Take 1 tablet (25 mg total) by mouth daily 90 tablet 3 07/29/19 Active tamsulosin (FLOMAX) 0.4 mg extended release capsuleIndicati ons:Benign prostatic hyperplasia with weak urinary stream Take 1 capsule (0.4 mg total) by mouth daily 90 capsule 3 09/09/19 026 Active Active Problems Problem Noted Date Diagnosed Date Traumatic scrotal hematoma, initial encounter Displacement of penile prosthesis implant 2022 Erectile dysfunction due to arterial insufficien cy 03/18/2023 Hypertension associated with type 2 diabetes leonid litus 02/25/2023 Assessment & Plan (10/22/2023 1:24 PM CDT): Chronic problem. Controlled on current lisinopril-HCTZ 20-25mg daily. Will update labs. Verified that he uses [employer]. Aware to check results/results letter in [employer]. Will contact by phone if needed. Assessment & Plan (06/18/2023 12:59 PM MUD WORKER): Chronic, well-controlled Continue lisinopril Assessment & Plan (02/25/2023 10:43 AM CDT): Chronic problem. Controlled on current lisinopril-HCTZ 20-25mg daily. No changes. Hyperlipidemia associated with type 2 diabetes m ellitus 02/25/2023 Assessment & Plan (10/22/2023 1:24 PM CDT): Chronic problem. Controlled on current Atorvastatin 20mg. Last lipid panel: 10/19/22 LDL=50, TG=80. Will update labs. Verified that he uses [employer]. Aware to check results/results letter in [employer]. Will contact by phone if needed. Assessment [...] hypertension. Assessment & Plan (06/30/2022 11:35 AM MUD WORKER): Recommend DASH diet, heart-healthy lifestyle, exercise. Discussed [...] kidneys. Assessment & Plan (07/19/2021 3:50 PM MUD WORKER): bp good an dkeep meds same and [...] (08/31/2020): Added automatically from request for surgery [id number] Biceps tendonitis on left 08/31/2020 Overview (08/31/2020): Added automatically from request for surgery [id number] Tear of left rotator cuff 08/31/2020 Overview (08/31/2020): Added automatically from request for surgery [id number] Arthritis of left acromioclavicular joint 2020 Overview (08/31/2020): Added automatically from request for surgery [id number] Status post right rotator cuff repair 08/13/2019 History of CVA (cerebrovascular accident) 2019 Assessment & Plan (06/18/2019 3:12 PM MUD WORKER): Risk controll Simple chronic bronchitis 02/16/2019 Assessment & Plan (05/24/2020 3:06 PM MUD WORKER): Copd stabgle and no t active Assessment & Plan (06/18/2019 3:13 PM MUD WORKER): Acute flair and stable and back to [...] (08/13/2018): Added automatically from request for surgery [id number] Arthritis of right acromioclavicular joint 07/11 Overview (07/11/2018): Added automatically from request for surgery [id number] Biceps tendinitis of right upper extremity 07/11 Overview (07/11/2018): Added automatically from request for surgery [id number] Impingement syndrome of right shoulder 9 Assessment & Plan (07/01/2018 5:01 PM MUD WORKER): Sugar dropped to 7.2 and cardio and [...] therapy Assessment & Plan (07/19/2021 3:52 PM MUD WORKER): ldl at 50 and great and keep [...] limited. Assessment & Plan (04/18/2021 4:18 PM MUD WORKER): Low-cholesterol low-fat diet LDL goal under 70 [...] limited. Assessment & Plan (05/24/2020 3:04 PM MUD WORKER): ldl at 62 and great and congt [...] again. Assessment & Plan (06/18/2019 3:17 PM MUD WORKER): ldl at 73 and reversal of arterial disae possible if tighter will take to 40 mg of atoervastin and check on results Assessment & Plan (04/07/2019 2:31 PM MUD WORKER): Goal of treatment , LDL cholesterol less [...] dropped to 6.8 and great And with cwyurd3v to kep and get sugar down or [...] care. Assessment & Plan (07/01/2018 4:59 PM MUD WORKER): ldl at 133 and doubled from priro [...] neded. Assessment & Plan (06/24/2018 3:23 PM MUD WORKER): Goal of treatment , LDL cholesterol less [...] 08/14/2017 Assessment & Plan (07/19/2021 3:55 PM MUD WORKER): Well exam colon up to date as is Vision psa. Had flu andcovoid and suggesgted the shinglgeds shot sereis. See's endo for surg and looking to [facility] for erecgtino. uro referral if not efecgtinve Assessment & Plan (05/24/2020 3:09 PM MUD WORKER): Well exam had flu shot and tetnus due. Up colon up to date and psa great. Consider the shinglds and is. . Assessment & Plan (01/04/2020 4:18 PM CDT): Check psa Assessment & Plan (02/16/2019 3:08 PM CDT): Check psa Assessment & Plan (11/13/2018 3:29 PM CDT): psa at 1.6 and less then 4 nl. Assessment & Plan (07/01/2018 5:03 PM MUD WORKER): Check psa Type 2 diabetes mellitus wit [...] mychart. Aware to check results/results letter in [employer]. Will contact by phone if needed. UTD DM eye exam (02/2023 [facility]). Strive for regular exercise (30min most [...] infection. Assessment & Plan (06/18/2023 1:00 PM MUD WORKER): Chronic, uncontrolled Importance of diet and exercise [...] DM eye exam completed this month at [facility]. Letter sent to get copy of [...] A1c improved from 8.4% 07/26/22 to 7.4% 5/19/23. Current medications: Metformin 1000 mg twice daily with meals Glimepiride 4 mg daily Jardiance 25 mg daily Trulicity 1.5mg weekly Basaglar 38 units every evening UTD on labs UTD on DM eye exam. Has appt set up 02/2023 [facility]. Strive for regular exercise (30min most days) [...] infection. Assessment & Plan (07/26/2022 3:20 PM MUD WORKER): Uncontrolled, chronic Diet and exercise Pt not interested in CGM Increase Basaglar, 40 unit shs Restart Trulicity 1.5 mg weekly Assessment & Plan (06/30/2022 11:35 AM MUD WORKER): The patient was counseled on a heart-healthy, [...] week Assessment & Plan (04/18/2021 4:17 PM MUD WORKER): Hba1c was Lab Results Component Value Date [...] 30units Assessment & Plan (07/05/2020 4:06 PM MUD WORKER): Hba1c was Lab Results Component Value Date [...] units Assessment & Plan (06/18/2019 3:18 PM MUD WORKER): See's endo and needs to tighten Assessment & Plan (04/07/2019 2:31 PM MUD WORKER): Hba1c was Lab Results Component Value Date [...] goal hba1c is under 7.0 to prevent lobsterman diabetes complications ( eye , kidney and [...] more frequently Will send prescription for Ekta C S Assessment & Plan (07/01/2018 4:58 PM MUD WORKER): a1c droopped to 7.2 at endo and cont contrll. Assessment & Plan (06/24/2018 3:23 PM MUD WORKER): Hba1c was Lab Results Component Value Date [...] limited. Assessment & Plan (08/09/2017 10:47 AM MUD WORKER): The patient was counseled on a heart-healthy, diabetic-friendly diet, as well as life-style modification. Education provided on the diagnosis and risks of the disease. We will continue to monitor routine labs. Additionally, the patient was counseled on routine diabetic eye exams, foot exams, and other preventive care. On metformin , Sarah collinsokana. Continue monitoring blood glucose Assessment & Plan (08/08/2017 3:39 PM MUD WORKER): Your Hba1c today was: Lab Results Component Value Date HGBA1C 9.6 08/08/2017 meaning a 3 month average sugar of : 234 Your goal hba1c is under 7.0 to prevent longterm diabetes complications ( eye , kidney and [...] daily Assessment & Plan (05/07/2017 2:22 PM MUD WORKER): Hba1c was 6.0 today, indicating much better DM control, risk of hypoglycemia 1800 calorie, consistent carb diet recommended 30 min daily aerobic and resistance exercise recommended Prevention and treatment of hyypoglcyemia discussed. Blood glucose monitoring with fingers sticks 1-2 x day . Foot care was discussed. Lower Lantus to 30 units. Assessment & Plan (04/24/2017 3:57 PM MUD WORKER): ldl at 49 and great and no [...] His appointment is Monday November 14, 2016. [place] to be removed at surgeon's follow-up visit. 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 Controlled on current lisinopril/hctz 20/25mg daily. No changes at this time. Hypertension associated with type 2 diabetes mellitus 02/07/2022 06/29/2022 Assessment & Plan (07/26/2022 3:21 PM MUD WORKER): Chronic, well controlled Continue current medications, including Lisinopril Assessment & Plan (03/22/2022 1:56 PM CDT): Controlled on current medications, no changes. Controlled type 2 diabetes m kandis with stage 2 chronic kidney disease, with long-term current use of insulin ([facility]) 10/26/2020 06/30/2022 Assessment & Plan (11/20/2021 1:34 [...] controlled. Assessment & Plan (07/19/2021 3:51 PM MUD WORKER): diaberrters per endo and recheck 24 hr [...] harm the kidneys. BMI 29.0-29.9,adult 10/26/2020 03/16/20 Class 1 obesity with body ma ss index (BMI) of 32.0 to 32.9 in adult 05/24/2020 06/29/2022 Assessment & Plan (11/20/2021 1:35 PM CDT): The wt needs to cont to drop Assessment & Plan (07/19/2021 3:55 PM MUD WORKER): Work to controll Assessment & Plan (03/16/2021 5:23 PM CDT): Wt controll BMI 30.0-30.9,adult 01/04/2020 02/15/20 21 Assessment & Plan (05/24/2020 3:05 PM MUD WORKER): Lost some wt on p urpose and work to keep off Assessment & Plan (01/04/2020 4:14 PM CDT): Work to kep wt fdown Acute URI 12/15/2018 12/15/2018 Assessment & Plan (12/15/2018 11:46 AM CDT): Recommending Augmentin therapy twice daily times 10 days along with OTC probiotics or Macedonian yogurt to assist with GI upset associated [...] LIVER FUNCTION STUDY Cerebral infarction 10/17/2013 06/18/19 Overview (09/07/2016): CVA (cerebral infarction) Hypertension associated [...] MA Assessment & Plan (07/19/2021 3:51 PM MUD WORKER): bp good and Keep meds same Hypertension, [...] bp. Assessment & Plan (04/18/2021 4:16 PM MUD WORKER): Well controlled Continue lisinopril hydrochlorothiazide Low-salt diet [...] microalbumin Assessment & Plan (07/05/2020 4:06 PM MUD WORKER): Goal blood pressure is less than 140/85 Low salt diet was discussed andd recommended The importance of daily aerobic exercise was also emphasized. Continue current meds, including CHARLOTTE-I or ARB, e.g. Lisinopril Check microalbumin Assessment & Plan (05/24/2020 3:04 PM MUD WORKER): The bp good and no chagfss inmweds [...] limited. Assessment & Plan (06/18/2019 3:14 PM MUD WORKER): Diabetes management or controll revolves around several [...] bp. Assessment & Plan (04/07/2019 2:29 PM MUD WORKER): Goal blood pressure is less than 140/85 [...] hypertension. Assessment & Plan (07/01/2018 4:57 PM MUD WORKER): a1c 7.2 at [facility] on 06/24. bp good and no changeasYour [...] limited. Assessment & Plan (06/24/2018 3:23 PM MUD WORKER): Goal blood pressure is less than 140/85 [...] bp. Assessment & Plan (08/09/2017 10:47 AM MUD WORKER): Blood pressure currently stable Recommend DASH diet, heart healthy lifestyle, exercise. Discussed the risks of hypertension. Assessment & Plan (08/08/2017 3:27 PM MUD WORKER): Goal blood pressure is less than 140/85 Low salt diet recommended Daily aerobic exercise Continue current meds, including CHARLOTTE-I or ARB Check microalbumin Assessment & Plan (05/07/2017 2:14 PM MUD WORKER): Goal blood pressure is less than 140/85 Low salt diet recommended Daily aerobic exercise Continue current meds, including CHARLOTTE-I or ARB, e.g. Lisinopril Assessment & Plan (04/24/2017 3:57 PM MUD WORKER): bp high . Change to 20.25 and [...] been adjusting his insulin needs to per hard rock miner recommendation. He is currently taking 30 units of Lantus daily. I will be seeing his hard rock miner within a week. Hypertension 04/21/2013 01/17/2017 Overview [...] medications. Assessment & Plan (08/08/2017 3:26 PM MUD WORKER): Goal of treatment , LDL cholesterol less [...] therapy Assessment & Plan (05/07/2017 2:15 PM MUD WORKER): Goal of treatment , LDL cholesterol less [...] statin therapy Low cholesterol diet, exercise advised. Immunizations Immunization Administration Dates Next Due Hep B Vaccine 06/03/1995 Influenza, Quadrivalent, Hig h Dose, Preservative Free, Intrr 03/19/2023,03/31/2022 Influenza, Quadrivalent, Spl it, Preservative Free, Intradermal 03/07/2016 Influenza, Quadrivalent, Spl it, Preservative Free, Intramuscular 02/27/2020,05/22/2017 Influenza, Unspecified 03/14/2021,03/06/2019,10/2017 Moderna SARS-CoV-2 Monovalen t Vaccination (12+ YRS) 07/19/2020,06/20/2020 Pneumococcal Conjugate Pcv20 02/02/2022 Tdap 02/04/2009 ZOSTER Recombinant 04/14/2022 Social History Tobacco Use Types Packs/Day Years Used Date Smoking Tobacco: Former Cigarettes Smokeless Tobacco: Never Comments:stopped at age 40 Alcohol Use Standard Drinks/Week Comments No 0 (1 standard drink = 0.6 oz pur e alcohol) stopped 10 yr ago AUDIT-C Answer Date Recorded Q1: How often do you have a drink containing alcohol? Never 07/29/2024 Q2: How many drinks containi ng alcohol do you have on a typical day when you are drinking? Patient does not drink Q3: How often do you have si x or more drinks on one occasion? Never 07/29/2024 PHQ-2 Answer Date Recorded PHQ-2 Total Score (If total score is 3 or more points, staff should administer the PHQ-9) 0 07/29/2024 Personal Safety Answer Date Recorded Have you ever been in or are you currently in a harmful physical or emotional relationship or is someone making you feel afraid or unsafe? Denies 05/13/2023 Sex and Gender Information Value Date Recorded Sex Assigned at Male 09/02/2018 10:38 AM CDT Legal Sex Male 1:06 PM MUD WORKER Gender Identity Male 09/02/2018 10:38 AM CDT Sexual Orientation Straight 09/02/2018 10 :38 AM CDT Last Filed Vital Signs Vital Sign Reading Time Taken Comments Blood Pressure 110/60 07/29/2024 3:38 PM MUD WORKER Pulse 88 07/29/2024 3:38 PM MUD WORKER Temperature 36.4 C (97.5 F) 06/14/2023 10:30 AM MUD WORKER Respiratory Rate 18 07/29/2024 3:38 PM MUD WORKER Oxygen Saturation 95% 05/13/2023 12:12 PM MUD WORKER Inhaled Oxygen Concentration - - Weight 83 kg (182 lb 14.4 oz) 07/29/2024 3:38 PM MUD WORKER Height 167.6 cm (5' 6) 07/29/2024 3:38 PM MUD WORKER Body Mass Index 29.52 07/29/2024 3:38 PM MUD WORKER Plan of Treatment Not on file Medical Devices Implanted Type Area Hematologist Oncologist Device Identifier Shelf Expiration Date Model / Serial / Lot [employer] 2503-A Arthroscopic Delivery System Kramer Suture Sterile Disposable - [id number] Implanted:Qty: 1 on 08/21/2018 by Daniel Mojica MD at [facility] Right: Shoulder [employer] 02/20/2019 2503-A / / [id number] [employer] 2504-1 Regenerate Tendon Kramer Suture - [id number] Implanted:Qty: 1 on 08/21/2018 by Daniel Mojica MD at [facility] Right: Shoulder [employer] 06/04/2019 2504-1 / / [id number] [employer] 2169-3 Reconstitute Scaffold Large Mesh Surgical Collagen Sterile Latex - [id number] Implanted:Qty: 1 on 08/21/2018 by Daniel Mojica MD at [facility] Right: Shoulder [employer] 04/02/2021 2169-3 / / [id number] Mayn[employer]hew/Richco/Or tho 4403 Kramer Bone With Arthroscopic Delivery System Advanced - [id number] Implanted:Qty: 1 on 09/15/2020 by Daniel Mojica MD at [facility] Left: Shoulder [employer]/O rtho 04/22/2023 4403 / / [id number] [employer] 2504-1 Regenerate Tendon Kramer Suture - [id number] Implanted:Qty: 1 on 09/15/2020 by Daniel Mojica MD at [facility] Left: Shoulder [employer] 04/13/2023 2504-1 / / [id number] [employer]/Rich[employer]/Or tho 4566 Implant Large Arthroscopic Bioinductive W/ Delivery Device - [id number] Implanted:Qty: 1 on 09/15/2020 by Daniel Mojica MD at [facility] Left: Shoulder [employer]/O rtho 05/19/2023 [id number] / / [id number] [employer] Petra Ams Spectra 1.5cm Concealable Rear Tip Information Technology Auditor Snapcone [id number] - [id number] Implanted:Qty: 1 on 03/18/2023 by Mele Sharp MD at [facility] N/A: Penis [employer] Petra 01/06/2028 [id number] / / [id number] [employer] Petra Ams 700 Ms Pump Preconnect Inflatable [place] Prosthesis 65ml [id number] - [id number] Implanted:Qty: 1 on 03/18/2023 by Mele Sharp MD at [facility] N/A: Penis [employer] Petra 07/31/2024 [id number] / / [id number] [employer] Petra Ams 700 Lgx Ms Pump 15cm 3 Piece Inflatable Preconnect Infrapubic [id number] - [id number] Implanted:Qty: 1 on 03/18/2023 by Mele Sharp MD at [facility] N/A: Penis [employer] Petra 09/02/2024 [id number] / / [id number] [employer] Petra Ams Spectra 12/14mm 2cm Concealable Malleable Rear Tip Information Technology Auditor [id number] - [id number] Implanted:Qty: 1 on 03/18/2023 by Mele Sharp MD at [facility] N/A: Penis [employer] Petra 12/23/2027 [id number] / / [id number] Procedures Procedure Name Priority Date/Time Associated Diagnosis Comments PSA SCREEN Routine 09/08/2024 10:51 AM CDT POCT URINALYSIS DIPSTICK Routine 09/08/2024 10:13 AM CDT S/P insertion of penile implant MEASURE POST VOID RESIDUAL Routine 09/08/2024 9:58 AM CDT S/P insertion of penile implant COMPREHENSIVE METABOLIC PANEL Routine 08/20/2024 1:35 PM CDT Type 2 diabetes mellitus with hyperglycemia, with long-term current use of insulin (HCC) POCT HEMOGLOBIN A1C Routine 07/29/2024 3 :40 PM MUD WORKER Type 2 diabetes mellitus with hyperglycemia, with long-term current use of insulin (HCC) LIPID PANEL Routine 10/22/2023 1:48 PM CDT Type 2 diabetes mellitus with hyperglycemia, with long-term current use of insulin (HCC) Hyperlipidemia associated with type 2 diabetes mellitus (HCC) ALBUMIN CREATININE RATIO, URINE Routine 10/22/2023 1:48 PM CDT Type 2 diabetes mellitus with hyperglycemia, with long-term current use of insulin (HCC) HM DIABETES EYE EXAM Routine 02/15/2023 9:[address] CHEST ABDOMEN PELVIS W CONTRAST Schedule Routine, Read Routine (OP Routine) 01/22/2019 10:40 AM CDT Diffuse large B-cell lymphoma of lymph nodes of multiple regions (HCC) HEPATITIS C ANTIBODY Routine Gen Lab 11/22/2016 2:10 PM CDT COLONOSCOPY REPORT 10/30/2016 from Last 3 Months or Most Recently Relevant to Health Maintenance Results * PSA screen (09/08/2024 10:51 AM CDT) PSA-Total 2.06 <=5.40 ng/mL Comment: Interpretive Data AGE SEX REFERENCE INTERVAL 0 minutes-150 years Female None 0 minutes-49 years Male None 50-59 years Male 0-3.90 60-69 years Male 0-5.40 70-79 years Male 0-6.20 80-150 years Male 0-6.20 The Aishwarya PSA Total assay procedure was used. Results from different manufacturers or methods may not be comparable. Serial testing should be performed using the same method. Current interpretive data last revised 21. Blood 09/08/2024 10:5 1 AM CDT 09/08/2024 10:51 AM CDT Mele Sharp MD LAB BLOOD ORDERABLES Fi nal Result EDYTA RUGGI[address] Department [place] [address] * (ABNORMAL) POCT urinalysis dipstick (09/08/2024 10:13 AM CDT) Color, Urine, POC Rach Clarity, ur, POC Clear Clear Glucose, ur, POC 3+(A) Negative MG/DL Ketones, ur, POC Negative Negative Blood, ur, POC Negative Negative pH, ur, POC 5.0 5.0 - 8.0 Protein, ur, POC Trace(A) Negative Nitrite, ur, POC Negative Negative Leukocytes, ur, POC Negative Negative Lot Number 0 Urine 09/08/2024 10:1 3 AM CDT Mele Sharp MD POINT OF CARE TEST CATHERINE MONTES Final Result * Measure post void residual (09/08/2024 9:58 AM CDT) Narrative Rema Vargas LPN - 09/08/2024 9:58 AM CDT Measurement of post-voiding residual urine and/or bladder capacity by ultrasound, non-imaging. PVR = 22 mL Mele Sharp MD NURSING ASSESSMENTS Fin al Result * (ABNORMAL) Comprehensive metabolic panel (08/20/2024 1:35 PM CDT) Glucose 207(H) 65 - 139 mg/dL [facility] Comment: Non-fasting reference interval BUN 26(H) 7 - 25 mg/dL [facility] Creatinine 1.85(H) 0.70 - 1.35 mg/dL [facility] eGFR 39(L) > OR = 60 mL/min/1.7 3m2 [facility] BUN/creat ratio 14 6 - 22 (calc) [facility] Sodium 138 135 - 146 mmol/L [facility] Potassium, pl 4.3 3.5 - 5.3 mmol/L [facility] Chloride 100 98 - 110 mmol/L [facility] CO2 29 20 - 32 mmol/L [facility] Calcium 9.0 8.6 - 10.3 mg/dL [facility] Protein, sr 6.4 6.1 - 8.1 g/dL [facility] Albumin 4.3 3.6 - 5.1 g/dL [facility] GLOBULIN 2.1 1.9 - 3.7 g/dL (calc) [facility] Alb/glob ratio 2.0 1.0 - 2.5 (calc) [facility] Bilirubin, total 0.5 0.2 - 1.2 mg/dL [facility] Alk phos 98 35 - 144 U/L [facility] AST 21 10 - 35 U/L [facility] ALT (SGPT) 26 9 - 46 U/L [facility] Blood 08/20/2024 1:35 PM CDT 08/20/2024 1:36 PM CDT Narrative [facility] - 08/21/2024 4:55 AM CDT FASTING:NO FASTING: NO us Bharti Bass MD LAB BLOOD ORDERABLES Final Resul t [facility] [address] [place] [address] * (ABNORMAL) POCT hemoglobin A1c (07/29/2024 3:40 PM MUD WORKER) Hemoglobin A1C, POC 8.2 4.0 - 5.6 % Comment:None Capillary blood 07/29/2024 3 :40 PM MUD WORKER us Bharti Bass MD POINT OF CARE TEST ORDERABLES Fi nal Result * Albumin Creatinine Ratio, Urine (10/22/2023 1:48 PM CDT) Albumin Ur 18.9 mg/L Comment: Interpretive Data No reference range established. Current interpretive data was last revised 2018. Creatinine Ur 128.3 mg/dL [facility] Comment: Interpretive Data No reference range established. Current interpretive data was last revised 2018. Albumin Creatinine Ratio, Ur 15 1 - 29 mg/g [facility] RUGGIERO Urine 10/22/2023 1:48 PM CDT 10/22/2023 8:40 PM CDT us Kimberley Herrera NP LAB URINE ORDERABLES Cher l Result EDY[facility] [address] Department [place] [address] * (ABNORMAL) Lipid panel (10/22/2023 1:48 PM CDT) Cholesterol 118 30 - 199 mg/dL Comment: Interpretive Data Ages < or = 19 years Acceptable: <170 mg/dL Borderline high: 170-199 mg/dL High: >or= 200 mg/dL Ages > or = 20 years Desirable: <200 mg/dL Borderline high: 200-239 mg/dL High: >or= 240 mg/dL Literature References: 1. Expert Panel on Integrated Guidelines for Cardiovascular Health and Risk Reduction in Children and Adolescents. Pediatrics 2011;128:S213 2. NCEP Expert Panel. Circulation 2004;110:227 Current Interpretive Data was last revised on 2018. Triglycerides 141 <=149 mg/dL [facility]YTA Comment: Interpretive Data Ages < or = 9 years Acceptable: <75 mg/dL Borderline high: 75-99 mg/dL High: >or= 100 mg/dL Ages 10 to 20 years Acceptable: <90 mg/dL Borderline high: 90-129 mg/dL High: >or= 130 mg/dL Ages > or = 20 years Desirable: <150 mg/dL Borderline high: 150-199 mg/dL High: 200-499 mg/dL Very high: >or= 499 mg/dL Literature References: 1. Expert Panel on Integrated Guidelines for Cardiovascular Health and Risk Reduction in Children and Adolescents. Pediatrics 2011;128:S213 2. NCEP Expert Panel. Circulation 2004;110:227 Current Interpretive Data was last revised on 2018. HDL 36(L) >=40 mg/dL EDYTA RUGGIERO Comment: Interpretive Data Ages < or = 19 years Acceptable: >45 mg/dL Borderline low: 40-45 mg/dL Low: <40 mg/dL Ages > or = 20 years Desirable: >or= 60 mg/dL Low: <40 mg/dL Literature References: 1. Expert Panel on Integrated Guidelines for Cardiovascular Health and Risk Reduction in Children and Adolescents. Pediatrics 2011;128:S213 2. NCEP Expert Panel. Circulation 2004;110:227 Current Interpretive Data was last revised on 2018. LDL, calculated 54 <=129 mg/dL [facility] RUGGIERO Comment: Interpretive Data Ages < or = 19 years Acceptable: <110 mg/dL Borderline high: 110-129 mg/dL High: >or= 130 mg/dL Ages > or = 20 years Optimal: <100 mg/dL Near optimal: 100-129 mg/dL Borderline high: 130-159 mg/dL High: >160 mg/dL Literature References: 1. Expert Panel on Integrated Guidelines for Cardiovascular Health and Risk Reduction in Children and Adolescents. Pediatrics 2011;128:S213 2. NCEP Expert Panel. Circulation 2004;110:227 Current Interpretive Data was last revised on 2018. Non-HDL Cholesterol 82 mg/dL EDYTA RUGGIERO Comment: Interpretive Data Ages < or = 19 years Acceptable: <120 mg/dL Borderline high: 120-144 mg/dL High: >145 mg/dL Ages > or = 20 years When triglycerides are >200 mg/dL, Non-HDL cholesterol is a secondary target of therapy with treatment goals that are 30 mg/dL greater than the LDL cholesterol target. Literature References: 1. Expert Panel on Integrated Guidelines for Cardiovascular Health and Risk Reduction in Children and Adolescents. Pediatrics 2011;128:S213 2. NCEP Expert Panel. Circulation 2004;110:227 Current Interpretive Data was last revised on 2018. Chol/HDL ratio 3 [facility] RUGGIERO Blood 10/22/2023 1:48 PM CDT 10/22/2023 8:40 PM CDT us Kimberley Herrera PAINTING MANAGER LAB BLOOD ORDERABLES Cher l Result EDYTA RUGGIERO [address] Department [place] [address] * DIABETES EYE EXAM (02/15/2023 9:39 AM CDT) us Historical Provider HEALTH MAINTENANCE Edited Result - Final * CT chest abdomen pelvis with contrast (01/22/2019 10:40 AM CDT) Anatomical Region Laterality Modality Body N/A Computed Tomogra phy 01/22/2019 11:2 8 AM CDT Impressions 01/22/2019 11:53 AM CDT 1. No adenopathy involving the chest, abdomen, or pelvis. 2. Stable cholelithiasis and right adrenal adenoma. Dictated by: Felipe Martinez IV, M.D. The radiology attending physician has personally reviewed this study, and had reviewed and/or edited this written report and agrees with it. Electronically signed by: Rudolph Lane M.D. Narrative 01/22/2019 11:53 AM CDT EXAMINATION: Computed tomography of the chest, abdomen and pelvis with intravenous contrast HISTORY: 61-year-old male with history of diffuse large B-cell lymphoma, status post right hemicolectomy 2016 with a 0.5 cm tumor and 3/5 lymph nodes positive for lymphoma TECHNIQUE: Transaxial computed tomographic images of the chest, abdomen and pelvis were obtained with intravenous contrast according to the standard protocol after the uneventful administration of 100 mL Opti-Ray 350 intravenous contrast. COMPARISON: CT chest, abdomen, and pelvis with contrast dated 04/10/2018 and PET/CT dated 04/04/2017. FINDINGS: Chest: Interval removal of a right anterior chest wall subcutaneous port and catheter. Mild findings of centrilobular emphysema. The central tracheobronchial airway is clear. No suspicious pulmonary nodules or masses. No focal consolidation or pulmonary edema. No pleural fluid collection or pleural mass. No suspicious mediastinal, axillary, hilar, or supraclavicular adenopathy. The esophagus has normal caliber and wall thickness. Heart size is within normal limits. No pericardial effusion. Thoracic aorta and pulmonary trunk demonstrate normal caliber. The chest wall is normal. No acute or suspicious osseous abnormalities involving the chest are identified. Abdomen/Pelvis: The liver has a smooth contour with no focal liver lesion. No biliary or pancreatic duct dilation. The spleen and pancreas are normal. The gallbladder is contracted with a large dense intraluminal oval calcified density, unchanged from prior. In addition, sub-5 mm calcified densities in the cystic duct may represent small gallstones but are unchanged from the comparison study. No gallbladder wall thickening or distention. A 1.2 cm low-attenuation nodule involving the medial limb of the right adrenal gland has an average Hounsfield units of 8 consistent with an adenoma, unchanged and comparison study. The left adrenal gland is normal. The kidneys demonstrate normal size and symmetric enhancement. No renal calculi or hydronephrosis. The ureters have normal caliber. The urinary bladder is well distended with fluid and has normal wall thickness. The prostate gland is not enlarged. There are postoperative changes from partial right hemicolectomy with anastomosis of the proximal transverse colon and ileum. No findings of bowel obstruction or focal bowel wall thickening the sigmoid colon is highly redundant. A a few scattered colonic diverticuli are present, most prominent involving the sigmoid. There is a small splenule along the anterior superior margin of the spleen. No free intraperitoneal fluid or gas. No suspicious upper abdominal, mesenteric, retroperitoneal, or pelvic adenopathy. Mild atherosclerotic calcifications involving the aorta and its branches without evidence of flow-limiting stenosis or aneurysm. Multilevel degenerative disc disease of the lumbar spine including disc space narrowing at L5-S1 and facet arthropathy. The right hilum is preserved. No suspicious lytic or sclerotic bone lesions are identified. Procedure Note Rudolph Lane MD - 01/22/2019 EXAMINATION: Computed tomography of the chest, abdomen and pelvis with intravenous contrast HISTORY: 61-year-old male with history of diffuse large B-cell lymphoma, status post right hemicolectomy 2017 with a 0.5 cm tumor and 3/5 lymph nodes positive for lymphoma TECHNIQUE: Transaxial computed tomographic images of the chest, abdomen and pelvis were obtained with intravenous contrast according to the standard protocol after the uneventful administration of 100 mL Opti-Ray 350 intravenous contrast. COMPARISON: CT chest, abdomen, and pelvis with contrast dated 04/10/2018 and PET/CT dated 04/04/2017. FINDINGS: Chest: Interval removal of a right anterior chest wall subcutaneous port and catheter. Mild findings of centrilobular emphysema. The central tracheobronchial airway is clear. No suspicious pulmonary nodules or masses. No focal consolidation or pulmonary edema. No pleural fluid collection or pleural mass. No suspicious mediastinal, axillary, hilar, or supraclavicular adenopathy. The esophagus has normal caliber and wall thickness. Heart size is within normal limits. No pericardial effusion. Thoracic aorta and pulmonary trunk demonstrate normal caliber. The chest wall is normal. No acute or suspicious osseous abnormalities involving the chest are identified. Abdomen/Pelvis: The liver has a smooth contour with no focal liver lesion. No biliary or pancreatic duct dilation. The spleen and pancreas are normal. The gallbladder is contracted with a large dense intraluminal oval calcified density, unchanged from prior. In addition, sub-5 mm calcified densities in the cystic duct may represent small gallstones but are unchanged from the comparison study. No gallbladder wall thickening or distention. A 1.2 cm low-attenuation nodule involving the medial limb of the right adrenal gland has an average Hounsfield units of 8 consistent with an adenoma, unchanged and comparison study. The left adrenal gland is normal. The kidneys demonstrate normal size and symmetric enhancement. No renal calculi or hydronephrosis. The ureters have normal caliber. The urinary bladder is well distended with fluid and has normal wall thickness. The prostate gland is not enlarged. There are postoperative changes from partial right hemicolectomy with anastomosis of the proximal transverse colon and ileum. No findings of bowel obstruction or focal bowel wall thickening the sigmoid colon is highly redundant. A a few scattered colonic diverticuli are present, most prominent involving the sigmoid. There is a small splenule along the anterior superior margin of the spleen. No free intraperitoneal fluid or gas. No suspicious upper abdominal, mesenteric, retroperitoneal, or pelvic adenopathy. Mild atherosclerotic calcifications involving the aorta and its branches without evidence of flow-limiting stenosis or aneurysm. Multilevel degenerative disc disease of the lumbar spine including disc space narrowing at L5-S1 and facet arthropathy. The right hilum is preserved. No suspicious lytic or sclerotic bone lesions are identified. IMPRESSION: 1. No adenopathy involving the chest, abdomen, or pelvis. 2. Stable cholelithiasis and right adrenal adenoma. Dictated by: Felipe Martinez IV, M.D. The radiology attending physician has personally reviewed this study, and had reviewed and/or edited this written report and agrees with it. Electronically signed by: Rudolph Lane M.D. Carolina Somers MD IMG CT PROCEDURES Final Re sult * Hepatitis C antibody (11/22/2016 2:10 PM CDT) Hep C Ab Nonreactive Nonreactive [facility] MORRIS Comment: Interpretive Data Positive and greyzone results should be confirmed by a molecular method. If positive or greyzone, a second separately collected sample should be submitted for Hepatitis C Virus RNA. Detection and Quantitation by Real-Time Reverse Tooling Inspector-PCR.Current Interpretive data was last revised on 2016. Blood specimen (specimen) 11/22/2016 2:10 PM CDT 11/22/2016 2:52 PM CDT Carolina Somers MD LAB MICROBIOLOGY - GENERAL ORDERABLES Edited Result - Final [facility] Department [place] [address] * COLONOSCOPY REPORT (10/30/2016) Anatomical Region Laterality Modality Other Narrative 10/30/2016 Ordered by an unspecified provider. Historical Provider GI PROCEDURE ORDERABLES F inal Result from Last 3 Months or Most Recently Relevant to [place] [address] [facility] [address] [facility] [id number] Member Subscriber Plan / Payer (Ef fective 2020-Present) Name:Young Márquez Sr. Member ID:[id number] Relation to Subscriber:Self Name:Young Márquez Sr. Subscriber ID:[id number] Payer ID:[id number] Type:[employer] HMO/PPO Address: [facility] [id number] [address] [facility] [address] Member Subscriber Plan / Payer (Ef fective 2020-Present) Name:Young Márquez Sr. Member ID:[id number] Relation to Subscriber:Self Name:Young Márquez Sr. Subscriber ID:[id number] Payer ID:[id number] Type:[employer] HMO/PPO Address: [facility] [id number] [address] MEDICARE MEDICARE Advance Directives For more information, please contact: [phone] * Full Code (Latest Code Status on File) Date Activated Date Inactivated Comments 03/18/2023 1:52 PM 03/19/2023 5:46 PM Care Teams Chiseler Head Relationship Specialty Start Date End Date Kirby Owens DO [address] [facility] [address] [place] [address] PCP - General Internal Medicine 09/08/24 Carolina Somers MD Medical Oncologist/Document Scanner Medical Oncology 07/27/20 Jordy Mendenhall NP [address] [place] [id number] Nurse Practitioner Nurse Practitioner 09/15/20 [place] [address] [address] Consulting Physician Urology 03/19/23
--- OUTSIDE RECORDS SUMMARY | 2024-11-03 14:46 | XMS_ITS | Clinical Summary ---
Author Organization [facility] Address [address] [place] [address] Care Team Providers Care Top Bottom Attaching Machine Operator Name Role Phone Carolina Somers MD Unavailable [phone] Jordy Mendenhall NP Unavailable [phone] Mele Sharp MD Unavailable Kirby Owens DO Primary Care Provider [phone] Allergies No known active allergies Medications aspirin (BABY ASPIRIN) 81 mg chewable tablet Take according to gptd-man-uwbvbud package directions 0 0 10/05/19 10 Active ferrous sulfate 325 mg (65 mg of elemental iron) tabletIndicatio ns:Iron Deficiency Anemia Take 1 tablet (325 mg total) by mouth daily with breakfast Active multivitamin capsule Take 1 capsule by mouth daily Active blood glucose diagnostic stripIndication s:Type 2 diabetes mellitus with hyperglycemia, with long-term current use of insulin (HCC) Use to test 2 times daily 200 [...] the skin every 7 days 3 mL 07/29/19 Active metFORMIN XR (GLUCOPHAGE XR) 500 mg 24 hr tabletIndicatio ns:Type 2 diabetes mellitus with hyperglycemia, with long-term current use of insulin (HCC) Take 2 tablets (1,000 mg total) by mouth 2 (two) times a day before breakfast and dinner 360 tablet 07/29/19 Active insulin glargine (LANTUS) 100 unit/mL (3 mL) pen for injection Inject 30 Units under the skin nightly 15 mL 07/29/19 Active atorvastatin (LIPITOR) 20 mg tablet Take 1 tablet (20 mg total) by mouth daily 90 tablet 07/29/19 Active lisinopril-hydr oCHLOROthiazide (ZESTORETIC) 20-25 mg per tablet Take 1 tablet by mouth daily 90 tablet 07/29/19 25 Active empagliflozin (Jardiance) 25 mg tablet Take 1 tablet (25 mg total) by mouth daily 90 tablet 07/29/19 25 Active tamsulosin (FLOMAX) 0.4 mg extended release capsuleIndicati ons:Benign prostatic hyperplasia with weak urinary stream Take 1 capsule (0.4 mg total) by mouth daily 90 capsule 09/09/19 25 026 Active Active Problems Problem Noted Date Diagnosed Date Traumatic scrotal hematoma, initial encounter Displacement of penile prosthesis implant 2022 Erectile dysfunction due to arterial insufficien cy 03/18/2023 Hypertension associated with type 2 diabetes leonid litus 02/25/2023 Assessment & Plan (10/22/2023 1:24 PM CDT): Chronic problem. Controlled on current lisinopril-HCTZ 20-25mg daily. Will update labs. Verified that he uses [employer]. Aware to check results/results letter in [employer]. Will contact by phone if needed. Assessment & Plan (06/18/2023 12:59 PM VEGETABLE WASHER): Chronic, well-controlled Continue lisinopril Assessment & Plan (02/25/2023 10:43 AM CDT): Chronic problem. Controlled on current lisinopril-HCTZ 20-25mg daily. No changes. Hyperlipidemia associated with type 2 diabetes andrey marquis 02/25/2023 Assessment & Plan (10/22/2023 1:24 PM CDT): Chronic problem. Controlled on current Atorvastatin 20mg. Last lipid panel: 10/19/22 LDL=50, TG=80. Will update labs. Verified that he uses [employer]. Aware to check results/results letter in [employer]. Will contact by phone if needed. Assessment [...] hypertension. Assessment & Plan (06/30/2022 11:35 AM VEGETABLE WASHER): Recommend DASH diet, heart-healthy lifestyle, exercise. Discussed [...] kidneys. Assessment & Plan (07/19/2021 3:50 PM VEGETABLE WASHER): bp good an dkeep meds same and [...] (08/31/2020): Added automatically from request for surgery [id number] Biceps tendonitis on left 08/31/2020 Overview (08/31/2020): Added automatically from request for surgery [id number] Tear of left rotator cuff 08/31/2020 Overview (08/31/2020): Added automatically from request for surgery [id number] Arthritis of left acromioclavicular joint 2020 Overview (08/31/2020): Added automatically from request for surgery [id number] Status post right rotator cuff repair 08/13/2019 History of CVA (cerebrovascular accident) 2019 Assessment & Plan (06/18/2019 3:12 PM VEGETABLE WASHER): Risk controll Simple chronic bronchitis 02/16/2019 Assessment & Plan (05/24/2020 3:06 PM VEGETABLE WASHER): Copd stabgle and no t active Assessment & Plan (06/18/2019 3:13 PM VEGETABLE WASHER): Acute flair and stable and back to [...] (08/13/2018): Added automatically from request for surgery [id number] Arthritis of right acromioclavicular joint 07/11 Overview (07/11/2018): Added automatically from request for surgery [id number] Biceps tendinitis of right upper extremity 07/11 Overview (07/11/2018): Added automatically from request for surgery [id number] Impingement syndrome of right shoulder 9 Assessment & Plan (07/01/2018 5:01 PM VEGETABLE WASHER): Sugar dropped to 7.2 and cardio and [...] therapy Assessment & Plan (07/19/2021 3:52 PM VEGETABLE WASHER): ldl at 50 and great and keep [...] limited. Assessment & Plan (04/18/2021 4:18 PM VEGETABLE WASHER): Low-cholesterol low-fat diet LDL goal under 70 [...] limited. Assessment & Plan (05/24/2020 3:04 PM VEGETABLE WASHER): ldl at 62 and great and congt [...] again. Assessment & Plan (06/18/2019 3:17 PM VEGETABLE WASHER): ldl at 73 and reversal of arterial disae possible if tighter will take to 40 mg of atoervastin and check on results Assessment & Plan (04/07/2019 2:31 PM VEGETABLE WASHER): Goal of treatment , LDL cholesterol less [...] dropped to 6.8 and great And with sxwtvi2h to kep and get sugar down or [...] care. Assessment & Plan (07/01/2018 4:59 PM VEGETABLE WASHER): ldl at 133 and doubled from priro [...] neded. Assessment & Plan (06/24/2018 3:23 PM VEGETABLE WASHER): Goal of treatment , LDL cholesterol less [...] 08/14/2017 Assessment & Plan (07/19/2021 3:55 PM VEGETABLE WASHER): Well exam colon up to date as is Vision psa. Had flu andcovoid and suggesgted the shinglgeds shot sereis. See's endo for surg and looking to [facility] for erecgtino. uro referral if not efecgtinve Assessment & Plan (05/24/2020 3:09 PM VEGETABLE WASHER): Well exam had flu shot and tetnus due. Up colon up to date and psa great. Consider the shinglds and is. . Assessment & Plan (01/04/2020 4:18 PM CDT): Check psa Assessment & Plan (02/16/2019 3:08 PM CDT): Check psa Assessment & Plan (11/13/2018 3:29 PM CDT): psa at 1.6 and less then 4 nl. Assessment & Plan (07/01/2018 5:03 PM VEGETABLE WASHER): Check psa Type 2 diabetes mellitus wit [...] mychart. Aware to check results/results letter in [employer]. Will contact by phone if needed. UTD DM eye exam (02/2023 [facility]). Strive for regular exercise (30min most days) [...] infection. Assessment & Plan (06/18/2023 1:00 PM VEGETABLE WASHER): Chronic, uncontrolled Importance of diet and exercise [...] DM eye exam completed this month at [facility]. Letter sent to get copy of report. [...] eye exam. Has appt set up 02/2023 [facility]. Strive for regular exercise (30min most days) [...] infection. Assessment & Plan (07/26/2022 3:20 PM VEGETABLE WASHER): Uncontrolled, chronic Diet and exercise Pt not interested in CGM Increase Basaglar, 40 unit shs Restart Trulicity 1.5 mg weekly Assessment & Plan (06/30/2022 11:35 AM VEGETABLE WASHER): The patient was counseled on a heart-healthy, [...] week Assessment & Plan (04/18/2021 4:17 PM VEGETABLE WASHER): Hba1c was Lab Results Component Value Date [...] 30units Assessment & Plan (07/05/2020 4:06 PM VEGETABLE WASHER): Hba1c was Lab Results Component Value Date [...] units Assessment & Plan (06/18/2019 3:18 PM VEGETABLE WASHER): See's endo and needs to tighten Assessment & Plan (04/07/2019 2:31 PM VEGETABLE WASHER): Hba1c was Lab Results Component Value Date [...] goal hba1c is under 7.0 to prevent bed bug exterminator diabetes complications ( eye , kidney and [...] more frequently Will send prescription for Ekta Banegas GMS Assessment & Plan (07/01/2018 4:58 PM VEGETABLE WASHER): a1c droopped to 7.2 at endo and cont contrll. Assessment & Plan (06/24/2018 3:23 PM VEGETABLE WASHER): Hba1c was Lab Results Component Value Date [...] limited. Assessment & Plan (08/09/2017 10:47 AM VEGETABLE WASHER): The patient was counseled on a heart-healthy, diabetic-friendly diet, as well as life-style modification. Education provided on the diagnosis and risks of the disease. We will continue to monitor routine labs. Additionally, the patient was counseled on routine diabetic eye exams, foot exams, and other preventive care. On metformin , tralthea, Invokana. Continue monitoring blood glucose Assessment & Plan (08/08/2017 3:39 PM VEGETABLE WASHER): Your Hba1c today was: Lab Results Component Value Date HGBA1C 9.6 08/08/2017 meaning a 3 month average sugar of : 234 Your goal hba1c is under 7.0 to prevent bed bug exterminator diabetes complications ( eye , kidney and [...] daily Assessment & Plan (05/07/2017 2:22 PM VEGETABLE WASHER): Hba1c was 6.0 today, indicating much better DM control, risk of hypoglycemia 1800 calorie, consistent carb diet recommended 30 min daily aerobic and resistance exercise recommended Prevention and treatment of hyypoglcyemia discussed. Blood glucose monitoring with fingers sticks 1-2 x day . Foot care was discussed. Lower Lantus to 30 units. Assessment & Plan (04/24/2017 3:57 PM VEGETABLE WASHER): ldl at 49 and great and no [...] 11/01/2016 Assessment & Plan (05/24/2020 3:05 PM VEGETABLE WASHER): actaive monitoring after rx Assessment & Plan (06/18/2019 3:18 PM VEGETABLE WASHER): On acative monitoring and due to be [...] 06/29/2022 Assessment & Plan (07/26/2022 3:21 PM VEGETABLE WASHER): Chronic, well controlled Continue current medications, including Lisinopril Assessment & Plan (03/22/2022 1:56 PM CDT): Controlled on current medications, no changes. Controlled type 2 diabetes m ellitus with stage 2 chronic kidney disease, with long-term current use of insulin ([facility]) 10/26/2020 06/30/2022 Assessment & Plan [...] controlled. Assessment & Plan (07/19/2021 3:51 PM VEGETABLE WASHER): diaberrters per endo and recheck 24 hr ruien cr cl as last 75 Assessment & Plan [...] stayng clear of meds diabetes managed by purvio To try to minimize the worsening and [...] drop Assessment & Plan (07/19/2021 3:55 PM VEGETABLE WASHER): Work to controll Assessment & Plan (03/16/2021 5:23 PM CDT): Wt controll BMI 30.0-30.9,adult 01/04/2020 02/15/20 21 Assessment & Plan (05/24/2020 3:05 PM VEGETABLE WASHER): Lost some wt on p urpose and work to keep off Assessment & Plan (01/04/2020 4:14 PM CDT): Work to kep wt fdown Acute URI 12/15/2018 12/15/2018 Assessment & Plan (12/15/2018 11:46 AM CDT): Recommending Augmentin therapy twice daily times 10 days along with OTC probiotics or Tristanian yogurt to assist with GI upset associated [...] MA Assessment & Plan (07/19/2021 3:51 PM VEGETABLE WASHER): bp good and Keep meds same Hypertension, [...] bp. Assessment & Plan (04/18/2021 4:16 PM VEGETABLE WASHER): Well controlled Continue lisinopril hydrochlorothiazide Low-salt diet [...] microalbumin Assessment & Plan (07/05/2020 4:06 PM VEGETABLE WASHER): Goal blood pressure is less than 140/85 Low salt diet was discussed andd recommended The importance of daily aerobic exercise was also emphasized. Continue current meds, including CHARLOTTE-I or ARB, e.g. Lisinopril Check microalbumin Assessment & Plan (05/24/2020 3:04 PM VEGETABLE WASHER): The bp good and no chagfss inmweds [...] limited. Assessment & Plan (06/18/2019 3:14 PM VEGETABLE WASHER): Diabetes management or controll revolves around several [...] bp. Assessment & Plan (04/07/2019 2:29 PM VEGETABLE WASHER): Goal blood pressure is less than 140/85 [...] hypertension. Assessment & Plan (07/01/2018 4:57 PM VEGETABLE WASHER): a1c 7.2 at staci on 06/24. bp [...] limited. Assessment & Plan (06/24/2018 3:23 PM VEGETABLE WASHER): Goal blood pressure is less than 140/85 [...] bp. Assessment & Plan (08/09/2017 10:47 AM VEGETABLE WASHER): Blood pressure currently stable Recommend DASH diet, heart healthy lifestyle, exercise. Discussed the risks of hypertension. Assessment & Plan (08/08/2017 3:27 PM VEGETABLE WASHER): Goal blood pressure is less than 140/85 Low salt diet recommended Daily aerobic exercise Continue current meds, including CHARLOTTE-I or ARB Check microalbumin Assessment & Plan (05/07/2017 2:14 PM VEGETABLE WASHER): Goal blood pressure is less than 140/85 Low salt diet recommended Daily aerobic exercise Continue current meds, including CHARLOTTE-I or ARB, e.g. Lisinopril Assessment & Plan (04/24/2017 3:57 PM VEGETABLE WASHER): bp high . Change to 20.25 and [...] been adjusting his insulin needs to per clinical trials assistant recommendation. He is currently taking 30 units of Lantus daily. I will be seeing his clinical trials assistant within a week. Hypertension 04/21/2013 01/17/2017 Overview [...] medications. Assessment & Plan (08/08/2017 3:26 PM VEGETABLE WASHER): Goal of treatment , LDL cholesterol less [...] therapy Assessment & Plan (05/07/2017 2:15 PM VEGETABLE WASHER): Goal of treatment , LDL cholesterol less [...] statin therapy Low cholesterol diet, exercise advised. Encounters Date Type Department Care Team Description 10/09/2024 Telephone [facility] Surgery [address] [place] [address] [address] [place] [address] Michelle Donaldson LPN NON URGENT MEDICAL QUESTION 09/11/[address] [place] [address] Christina Esqueda RMA 09/10/2024 1:00 PM CDT Office Visit [facility] Surgery [address] [place] [address] [address] [place] [address] Aurora Caldwell PA Dupuytren's contracture 09/10/2024 Orders Only [facility] Surgery [address] [place] [address] [address] [place] [address] Jesenia Hancock MD Dupuytren's contracture (Primary Dx) 09/08/2024 10:50 AM CDT Lab [address] [address] 09/08/2024 9:20 AM CDT Office Visit [facility] - [facility] Urology [address] [place] [address] [address] [place] [address] Mele Sharp MD Benign prostatic hyperplasia with weak urinary stream (Primary Dx); S/P insertion of penile implant; Prostate cancer screening 08/27/2024 Results Follow-Up [facility] [address] [place] [address] Bharti Bass MD Comprehensive metabolic panel from Last 3 Months Immunizations Immunization Administration Dates Next Due Hep B Vaccine 06/03/1995 Influenza, Quadrivalent, Hig h Dose, Preservative Free, Intrr 03/19/2023,03/31/2022 Influenza, Quadrivalent, Spl it, Preservative Free, Intradermal 03/07/2016 Influenza, Quadrivalent, Spl it, Preservative Free, Intramuscular 02/27/2020,05/22/2017 Influenza, Unspecified 03/14/2021,03/06/2019,10/2017 Moderna SARS-CoV-2 Monovalen t Vaccination (12+ YRS) 07/19/2020,06/20/2020 Pneumococcal Conjugate Pcv20 02/02/2022 Tdap 02/04/2009 ZOSTER Recombinant 04/14/2022 Surgical History Surgery Date Site/Laterality Comments VASECTOMY Vasectomy OTHER SURGICAL HISTORY Back pain/Bulging disc L4 - L5: cortisone injection COLECTOMY 11/01/2016 Hand Assist Lap Right Colectomy PORT REMOVAL 05/29/2018 N/A BRAIN SURGERY Brain Stent after Stroke CHOLECYSTECTOMY 07/27/2019 ROTATOR CUFF REPAIR Bilateral DUPUYTREN CONTRACTURE RELEASE Right ring finger - needle aponeurotomy PENILE PROSTHESIS IMPLANT Medical History Medical History Date Comments Type 2 diabetes mellitus (HCC) D iabetes type 2 Hx Other Medical 2011 Back pain/Bulgi ng disc L4 - L5; Outcome: improved Hx Other Medical amh/chest pain 05/2014 Hyperlipidemia Hypertension Cancer (HCC) Lymphoma large c ell Non-Hodgkin's, Chemo 2016; Remission Cerebrovascular accident (CVA) (HCC) 2008 Cerebrovascular accident; Right lip droops TIA (transient ischemic attack) 2022 Arthritis Cataract History of transfusion Failure of penile implant Family History Medical History Relation Name Comments Hypertension Brother 2 Hypertension; Lupus Brother 3 Lupus erythemat osus; Hypertension Mother Hypertension; Diabetes type II Other Family hist ory of Diabetes -Type 2; Relation Name Status Comments Brother 1 Alive Brother 2 Brother 3 Father Mother Other Social History Tobacco Use Types Packs/Day Years [...] AM CDT Legal Sex Male 1:06 PM VEGETABLE WASHER Gender Identity Male 09/02/2018 10:38 AM CDT Sexual Orientation Straight 09/02/2018 10 :38 AM CDT Obstetrics History Last Filed Vital Signs Vital Sign Reading Time Taken Comments Blood Pressure 110/60 07/29/2024 3:38 PM VEGETABLE WASHER Pulse 88 07/29/2024 3:38 PM VEGETABLE WASHER Temperature 36.4 C (97.5 F) 06/14/2023 10:30 AM VEGETABLE WASHER Respiratory Rate 18 07/29/2024 3:38 PM VEGETABLE WASHER Oxygen Saturation 95% 05/13/2023 12:12 PM VEGETABLE WASHER Inhaled Oxygen Concentration - - Weight 83 kg (182 lb 14.4 oz) 07/29/2024 3:38 PM VEGETABLE WASHER Height 167.6 cm (5' 6) 07/29/2024 3:38 PM VEGETABLE WASHER Body Mass Index 29.52 07/29/2024 3:38 PM VEGETABLE WASHER Plan of Treatment Health Maintenance Due Date Last Done Comments DTaP/Tdap/Td Vaccine (2 - Td or Tdap) 02/04/2019 02/04/2009 Abdominal Aortic Aneurysm (A AA) Screen 2021 01/22/2019, 04/10/2018, 10/31/2016, Additional history exists Zoster Vaccine (2 of 2) 06/09/2022 04/14/2022 Well Visit 65+ 07/19/2022 07/19/2021, 05/24/2020 Foot Exam 12/13/2023 12/12/2022, 0508/2022, 10/17/2021, Additional history exists Covid-19 Vaccine (2023-2 5 season) 2024 03/31/2022, 04/14/2021, 07/19/2020, Additional history exists Albumin Creatinine Ratio, Urine 10/21/2024 10/22/2023, 10/19/2022, 11/10/2021, Additional history exists Lipid Panel 10/21/2024 10/22/2023, 10/01, 01/22/2022, Additional history exists Hemoglobin A1C 01/26/2025 07/29/2024, 10/02, 06/18/2023, Additional history exists Influenza Vaccine (Season Ended) 2025 03/19/2023, 03/31/2022, 03/14/2021, Additional history exists Dilated Eye Exam 02/15/2025 02/15/2023, , 10/10/2020, Additional history exists Depression Screening 07/29/2025 07/29/2024, 12/12/2022, 11/01/2022, Additional history exists Fall Risk Assessment 07/29/2025 07/29/2024, 05/13/2023, 12/12/2022, Additional history exists eGFR 08/20/2025 08/20/2024, 04/04, 02/18/2023, Additional history exists Prostate Cancer Screening-PSA 09/08/2025, 11/10/2021, 07/07/2021, Additional history exists Colon Cancer Screening-Colonoscopy 10/30/2026 10/30/2016, 09/15/2014, 09/15/2014 Hepatitis B Screening Completed 06/03/1995 Colon Cancer Screening-CT Colonography Discontinued 10/30/2016, 09/15/2014, 09/15/2014 Colon Cancer Screening-DNA Stool Discontinued 10/30/2016, 09/15/2014, 09/15/2014 Colon Cancer Screening-FIT Discontinued 10/30, 10/26/2016, 09/15/2014, Additional history exists Colon Cancer Screening-Sigmoidoscopy Discontinued 10/30/2016, 09/15/2014, 09/15/2014 Hepatitis C Screening Completed 11/22/2016 Pneumococcal vaccine 65+ Completed 02/02/2022 Medical Devices Implanted Type Area Clinical Lab Specialist Device Identifier Shelf Expiration Date Model / Serial / Lot [employer] 2503-A Arthroscopic Delivery System Tioga Suture Sterile Disposable - [id number] Implanted:Qty: 1 on 08/21/2018 by Daniel Mojica MD at [facility] Right: Shoulder [employer] 02/20/2019 2503-A / / [id number] [employer] 2504-1 Regenerate Tendon Tioga Suture - [id number] Implanted:Qty: 1 on 08/21/2018 by Daniel Mojica MD at [facility] Right: Shoulder [employer] 06/04/2019 2504-1 / / [id number] [employer] 2169-3 Reconstitute Scaffold Large Mesh Surgical Collagen Sterile Latex - [id number] Implanted:Qty: 1 on 08/21/2018 by Daniel Mojica MD at [facility] Right: Shoulder [employer] 04/02/2021 2169-3 / / [id number] [employer]/Rich[employer]/Or tho 4403 Tioga Bone With Arthroscopic Delivery System Advanced - [id number] Implanted:Qty: 1 on 09/15/2020 by Daniel Mojica MD at [facility] Left: Shoulder [employer] rtho 04/22/2023 4403 / / [id number] [employer] 2504-1 Regenerate Tendon Tioga Suture - [id number] Implanted:Qty: 1 on 09/15/2020 by Daniel Mojica MD at [facility] Left: Shoulder [employer] 04/13/2023 2504-1 / / [id number] [employer]/Rich[employer]/Or tho 4566 Implant Large Arthroscopic Bioinductive W/ Delivery Device - [id number] Implanted:Qty: 1 on 09/15/2020 by Daniel Mojica MD at [facility] Left: Shoulder [employer]/O r[employer]o 05/19/2023 [id number] / / [id number] [email or web address] Petra Ams Spectra 1.5cm Concealable Rear Tip Grounds Supervisor Snapcone [id number] - [id number] Implanted:Qty: 1 on 03/18/2023 by Mele Sharp MD at [facility] N/A: Penis [employer] Petra 01/06/2028 [id number] / / [id number] [employer] Petra Ams 700 Ms Pump Preconnect Inflatable [place] Prosthesis 65ml [id number] - [id number] Implanted:Qty: 1 on 03/18/2023 by Mele Sharp MD at [facility] N/A: Penis [employer] Petra 07/31/2024 [id number] / / [id number] [employer] Petra Ams 700 Lgx Ms Pump 15cm 3 Piece Inflatable Preconnect Infrapubic [id number] - [id number] Implanted:Qty: 1 on 03/18/2023 by Mele Sharp MD at [facility] N/A: Penis [employer] Petra 09/02/2024 [id number] / / [id number] [employer] Petra Ams Spectra 12/14mm 2cm Concealable Malleable Rear Tip Grounds Supervisor [id number] - [id number] Implanted:Qty: 1 on 03/18/2023 by Mele Sharp MD at [facility] N/A: Penis [employer] Petra 12/23/2027 [id number] / / [id number] Procedures Procedure Name Priority Date/Time Associated Diagnosis [...] HEMOGLOBIN A1C Routine 07/29/2024 3 :40 PM VEGETABLE WASHER Type 2 diabetes mellitus with hyperglycemia, with [...] 1 AM CDT 09/08/2024 10:51 AM CDT us Mele Sharp MD LAB BLOOD ORDERABLES Fi nal Result [facility] RUGGI[facility] [address] Department [place] [address] * (ABNORMAL) POCT urinalysis dipstick (09/08/2024 10:13 [...] MD LAB BLOOD ORDERABLES Final Resul t Performing Organization Address City/State/[facility] Co de Phone Number [facility] [address] [place] [address] * (ABNORMAL) POCT hemoglobin A1c (07/29/2024 3:40 PM VEGETABLE WASHER) Pathologist [facility] Hemoglobin A1C, POC 8.2 4.0 - 5.6 % Comment:None Capillary blood 07/29/2024 3 :40 PM VEGETABLE WASHER us Bharti Bass MD POINT OF CARE TEST ORDERABLES Fi nal Result * Albumin Creatinine Ratio, Urine (10/22/2023 1:48 PM CDT) Albumin Ur 18.9 mg/L Comment: Interpretive Data No reference range established. Current interpretive data was last revised 2018. Creatinine Ur 128.3 mg/dL [facility] Comment: Interpretive Data No reference range established. Current interpretive data was last revised 2018. Albumin Creatinine Ratio, Ur 15 1 - 29 mg/g [facility] Urine 10/22/2023 1:48 PM CDT 10/22/2023 8:40 PM CDT us Kimberley Herrera NP LAB URINE ORDERABLES Cher l Result EDYTA RUGGI[facility] [address] Department [place] [address] * (ABNORMAL) Lipid panel (10/22/2023 1:48 PM [...] on 2018. Triglycerides 141 <=149 mg/dL [facility] Comment: Interpretive Data Ages [...] Chol/HDL ratio 3 [facility] Blood 10/22/2023 1:4 8 PM CDT 10/22/2023 8:40 PM CDT us Kimberley Herrera NP LAB BLOOD ORDERABLES Cher l Result EDYTA [address] Department [place] [address] * DIABETES EYE EXAM (02/15/2023 9:39 AM [...] it. Electronically signed by: Rudolph Lane M.D. us Carolina Somers MD IM CT PROCEDURES Final Re sult * Hepatitis C antibody (11/22/2016 2:10 PM CDT) Hep C Ab Nonreactive Nonreactive [facility] Comment: Interpretive Data Positive and greyzone results should be confirmed by a molecular method. If positive or greyzone, a second separately collected sample should be submitted for Hepatitis C Virus RNA. Detection and Quantitation by Real-Time Reverse Electric Plater-PCR.Current Interpretive data was last revised on 2016. Blood specimen (specimen) 11/22/2016 2:10 PM CDT 11/22/2016 2:52 PM CDT Carolina Somers MD LAB MICROBIOLOGY - GENERAL ORDERABLES Edited Result - Final [facility] Department [place] [address] * COLONOSCOPY REPORT (10/30/2016) Anatomical Region Laterality Modality Other Narrative 10/30/2016 Ordered by an unspecified provider. Historical Provider GI PROCEDURE ORDERABLES F inal Result from Last 3 Months or Most Recently Relevant to Health Maintenance Insurance [facility] [id number] [employer] [id number] Member Subscriber Plan / Payer (Ef fective 2020-Present) Name:Young Márquez Sr. Member ID:[id number] Relation to Subscriber:Self Name:Young Márquez Sr. Subscriber ID:[id number] Payer ID:[id number] Type:HEALTHLINK HMO/PPO Address: [facility] [id number] [facility] [id number] Member Subscriber Plan / Payer (Ef fective 2020-Present) Name:Young Márquez Sr. Member ID:[id number] Relation to Subscriber:Self Name:Young Márquez Sr. 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
== END 2024-11-03 14:38 | disposition home or self-care (01) ==
LOC: ANHIMG 14:43
PROVIDERS: PCP Internal Medicine; Visit Provider Internal Medicine
DX: R05.9 Cough, unspecified (principal)
CPT/HCPCS: 71046